=== PATIENT | male | born 1975 | race Native Hawaiian/Other Pacific Islander ===

== ENCOUNTER → 2020-01-05 09:18 | Outpatient (BNVA) | payer OTHER, SELFPAY | PROVIDERS: PCP Physician Assistant; Referring Provider Physician Assistant; Visit Provider Surgery | DX: Z09 Encounter for follow-up examination after completed treatment for conditions other than malignant neoplasm (principal); Z87.19 Personal history of other diseases of the digestive system; Z90.49 Acquired absence of other specified parts of digestive tract | CPT/HCPCS: 99024; 99212 ==

== ENCOUNTER → 2020-03-03 08:57 | Outpatient (BNVA) | payer OTHER, SELFPAY | PROVIDERS: Visit Provider Internal Medicine Gastroenterology | DX: Z76.89 Persons encountering health services in other specified circumstances (principal) ==

== ENCOUNTER 2020-09-06 16:15 | Outpatient (REF) | payer OTHER, SELFPAY | END 2020-09-06 16:16 | disposition home or self-care (01) | LOC: HO.LAB 16:15 | PROVIDERS: Visit Provider Nurse Practitioner Family | DX: R05 Cough (principal); Z20.822 Contact with and (suspected) exposure to COVID-19 | CPT/HCPCS: U0003; U0005 ==

== ENCOUNTER 2020-09-06 16:28 | Outpatient (REF) | payer OTHER, SELFPAY ==
--- NOTE | ~2020-09-06 | XR_ITS ---
EXAMINATION: CHEST 2 VIEWS CLINICAL INFORMATION: Cough . COMPARISON: 07/19/2018. TECHNIQUE: PA and lateral views of the chest obtained. FINDINGS: The lungs are well expanded. No focal infiltrate, effusion, edema, or pneumothorax. Cardiac and mediastinal silhouettes are within normal limits for technique. No acute bony abnormality seen XR/XR chest 2V IMPRESSION: No evidence of acute disease
== END 2020-09-06 16:29 | disposition home or self-care (01) ==
LOC: HO.HMGCX 16:28
PROVIDERS: Visit Provider Nurse Practitioner Family
DX: R05 Cough (principal)
CPT/HCPCS: 71046

== ENCOUNTER → 2022-08-13 12:33 | Outpatient (BNVA) | payer OTHER, SELFPAY | PROVIDERS: PCP Physician Assistant; Visit Provider Orthopaedic Surgery | DX: M65.331 Trigger finger, right middle finger (principal); R20.0 Anesthesia of skin; R20.2 Paresthesia of skin; Z48.89 Encounter for other specified surgical aftercare | CPT/HCPCS: 20550; 99202; J1100 ==

== ENCOUNTER 2022-10-10 | Outpatient (REF) | payer OTHER, SELFPAY | END 2022-10-10 00:01 | disposition home or self-care (01) | LOC: CF | PROVIDERS: Visit Provider Internal Medicine Pulmonary Disease | DX: R91.8 Other nonspecific abnormal finding of lung field (principal); J43.9 Emphysema, unspecified | CPT/HCPCS: 99202 ==

== ENCOUNTER 2022-10-10 14:42 | Outpatient (AMB) | payer OTHER, SELFPAY ==
--- NOTE | 2022-10-10 14:44 | MHC.OFFVIS ---
Intake Vital Signs 10/10/22 14:53 Height 5 ft 7 in Weight 197 lb 5.019 oz BMI 30.9 BP 118/76 Blood Pressure Location Rt brachial Position Sitting Pulse 91 Pulse Source Pulse Oximeter Pulse Oximetry (%) 96 Oxygen Delivery Method Room Air Intake Visit Reasons: Abnormal CT Chest Intake Note: New pt here for consult for a chest xray where they found pulm nodules. Possible PFT at [facility]. Recently started smoking cigarettes. Allergies fish oil Allergy (Unknown, Verified 10/10/22 14:58) Unknown diphenhydramine [From Benadryl] Allergy (Verified 10/10/22 14:58) Anaphylaxis SEAFOOD Allergy (Severe, Uncoded 10/10/22 14:58) HIVES,SWELLING THROAT HPI Abnormal CT Chest HPI Details 46-year-old gentleman active roughly 10 pack-year smoker with underlying history of pulmonary nodules on prior imaging [facility] approximately 3 years prior with no recent imaging referred for evaluation of his pulmonary concerns. Patient states that he does get elevated more out of breath when working out. He denies any recent exacerbations. He does complain of cough productive of intermittent yellowish sputum. Patient denies exposure to industrial dusts. He does have a dog as a pet and he also complains of multiple environmental allergies. [facility] Surgical History H/O knee surgery History of appendectomy History of colonoscopy History of hand surgery History of laparoscopic cholecystectomy (~11/2019) Hx of cholecystectomy Hx of endoscopy Family History Mother Hepatitis C Hypertension Diabetes Father Hepatitis C Hypertension Cancer Paternal Grandfather History of prostate cancer Hypertension Sister Diabetes Maternal Aunt Brain cancer Paternal Uncle History of prostate cancer Social History (Updated 10/10/22 @ 15:02 by Bailey Trujillo CMA) Housing: House Alcohol intake: never Patient Tobacco Use Status: Current everyday Tobacco user Tobacco use type: Cigarette Cigarettes Per Day: 6 Substance Use Type: Marijuana service: No Current occupational status: unemployed 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 Cognitive needs: No Hearing needs: No Vision needs: No Review of Systems Const Denies daytime sleepiness, Denies excessive sweating, Denies fatigue, Denies fever(s), Denies lethargy, Denies malaise, Denies night sweats, Denies snoring and Denies weight loss Eyes Denies blurry vision and Denies itchy eyes ENT Denies nasal congestion, Denies post nasal drip, Denies sinus pain, Denies sinus pressure and Denies other ( Thrush) Card Denies chest pain, Denies pedal edema, Denies dyspnea, Denies orthopnea and Denies paroxysmal nocturnal dyspnea Resp Reports cough, Denies hemoptysis, Reports excessive phlegm production, Denies dyspnea, Denies snoring and Denies wheezing GI Denies abdominal pain and Denies heartburn Musc Denies myalgias, Denies arthralgias and Denies joint swelling Skin/Breast Denies rash Neuro Denies memory loss and Denies seizure-like activity Psych Denies abnormal sleep pattern, Denies anxiety and Denies memory loss Endo Denies excessive sweating, Denies fatigue and Denies heat intolerance Andrae/Lymph Denies easy bruising Aller/Immun Denies itchy eyes, Denies seasonal rhinorrhea and Denies wheezing Physical Exam Vital Signs: Last Vital Signs Pulse 91 10/10/22 14:53 BP 118/76 10/10/22 14:53 Pulse Ox 96 10/10/22 14:53 Oxygen Delivery Method Room Air 10/10/22 14:53 BMI result Body Mass Index 30.9 Const General: no acute distress and alert Nutritional Appearance: not obese Orientation/consciousness: Other orientation findings ( oriented) HEENT Head: Yes atraumatic Eyes General: appearance normal, both eyes and all related structures Sclerae: sclerae normal EOM: EOMs intact bilaterally Neck Neck: Yes supple Lymphatic: no lymphadenopathy noted Resp Effort & Inspection: normal respiratory effort and no use of accessory muscles Auscultation: clear to auscultation bilaterally Cardio Rate: regular rate Rhythm: regular rhythm Heart sounds: no gallops, no murmurs and no rubs Skin General skin exam: other ( warm) Extrem General: No clubbing, No cyanosis and No edema Assessment & Plan Assessment & Plan (1) Pulmonary nodules: Code(s): R91.8 - Other nonspecific abnormal finding of lung field Plan: Patient states that he has history of multiple pulmonary nodules with prior CT scan from 2019 at [facility] that are not available at this time. Records requested will repeat CT chest for further assessment. (2) Emphysema lung: Code(s): J43.9 - Emphysema, unspecified Plan: Likely underlying COPD. Will obtain PFT for further assessment. Orders: Orders CT chest wo IV con Today R91.8 - Other nonspecific abnormal finding of lung field PFT pulmonary function test Today J43.9 - Emphysema, unspecified Coding Level of Care Code New Pt Level 4 (87968) Diagnoses Pulmonary nodules R91.8 Emphysema lung J43.9
[2022-10-10 14:53] VITALS: BP 118/76; PULSE 91; O2SAT 96; BMI 30.9
== END 2022-10-10 15:17 | disposition home or self-care (01) ==
PROVIDERS: PCP Physician Assistant; Visit Provider Internal Medicine Pulmonary Disease
DX: R91.8 Other nonspecific abnormal finding of lung field (principal); J43.9 Emphysema, unspecified
CPT/HCPCS: 99204

== ENCOUNTER 2022-10-17 10:51 | Outpatient (AMB) | payer OTHER, SELFPAY ==
--- NOTE | 2022-10-17 10:54 | A.OFFPC_ITS ---
Vital Signs 10/17/22 10:55 Height 5 ft 7 in Weight 194 lb 6 oz BMI 30.4 BP 104/70 Blood Pressure Location Lt brachial Position Sitting Pulse 75 Pulse Source Pulse Oximeter Pulse Oximetry (%) 95 Oxygen Delivery Method Room Air Intake Visit Reasons: 3M follow up Allergies fish oil Allergy (Unknown, Verified 10/17/22 11:22) Unknown diphenhydramine [From Benadryl] Allergy (Verified 10/17/22 11:22) Anaphylaxis SEAFOOD Allergy (Severe, Uncoded 10/17/22 10:57) HIVES,SWELLING THROAT Medication List - Last Reconciled 10/17/22 by Yonatan Good PA-C albuterol sulfate 90 mcg/actuation (Ventolin HFA) 2 puffs inhalation Q4-6H PRN famotidine 40 mg PO BEDTIME fexofenadine (Kim Allergy) 180 mg PO DAILY fluticasone propionate 50 mcg/actuation 2 sprays intranasal DAILY mirtazapine 15 mg PO BEDTIME Tobacco use date assessed: 07/18/22 HPI 3M follow up HPI Details Patient is a 46 year male here today for af /u visit . Patient's past history significant for vitamin-D deficiency, major depressive disorder GERD, inflammatory bowel disease, chronic rhinitis. Recently released from detention. He reports while in detention he had a right hand tendon infection requiring surgical intervention and IV antibiotics. ? Inflammatory bowel disease: Patient is followed by GI , reports his stools are now normal. Has not had any acute flare ups. Currently not on any disease modifying drug. He be following back up his GI specialist. .. COPD: Patient now followed by pulmonology and continues on Ventolin as needed. recently stopped smoking cig. He reports in the mornings having a somewhat productive cough. Was referred to pulmonary function testing and CT of chest, does have multiple pulmonary nodules PFSH Surgical History H/O knee surgery History of appendectomy History of colonoscopy History of hand surgery History of laparoscopic cholecystectomy (~11/2019) Hx of cholecystectomy Hx of endoscopy Family History Mother Hepatitis C Hypertension Diabetes Father Hepatitis C Hypertension Cancer Paternal Grandfather History of prostate cancer Hypertension Sister Diabetes Maternal Aunt Brain cancer Paternal Uncle History of prostate cancer Social History Housing: House Alcohol intake: never Patient Tobacco Use Status: Current everyday Tobacco user Tobacco use type: Cigarette Cigarettes Per Day: 6 Substance Use Type: Marijuana service: No Current occupational status: unemployed 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 1. Little interest or pleasure in doing things: not at all 2. Feeling down, depressed, or hopeless: not at all 3. Trouble falling or staying asleep, or sleeping too much: not at all 4. Feeling tired or having little energy: not at all 5. Poor appetite or overeating: not at all 6. Feeling bad about yourself - or that you are a failure or have let yourself or your family down: not at all 7. Trouble concentrating on things, such as reading the newspaper or watching television: not at all 8. Moving or speaking so slowly that other people could have noticed. Or the opposite - being so fidgety or restless that you have been moving around a lot more than usual: not at all 9. Thoughts that you would be better off or of hurting yourself in some way: not at all Total score: 0 Depression Screening Interpretation: Negative 87641 - PHQ-9 Billing: Yes Source: Developed by Drs. Lan Thurman, Janee Marquez, Beck Parkinson and colleagues, with an educational ole from [employer]. Thrive Questionnaire Date Thrive assessed: 07/18/22 I am a: Patient What is your living situation today?: I have a steady place to live Within the past 12 months, did the food you bought not last and you didn't have the money to get more?: Never true Within the past 12 months, did you worry whether your food would run out before you got money to buy more?: Never true Currently or been in a relationship where the following occur: no concerns reported AUDIT C Alcohol Use Questionnaire (AUDIT-C) 1. How often do you have a drink containing alcohol?: Never 3. How often do you have six or more drinks on one occasion?: Never Total Score: 0 Score Reviewed/Action Taken: No JAKI-7 AMB Questionnaire JAKI-7 Date JAKI - 7 assessed: 07/18/22 Feeling nervous, anxious, or on edge: 1 = Several days Not being able to stop or control worryin = Several days Worrying too much about different things: 0 = Not at all Trouble relaxin = Not at all Being so restless that it is hard to sit still: 0 = Not at all Becoming easily annoyed or irritable: 0 = Not at all Feeling afraid as if something awful might happen: 0 = Not at all Total JAKI-7 score (0-4 normal; 5-9 mild; 10-14 moderate; 15-21 severe): 2 Source: Developed by Drs. Lan Thurman, Janee Marquez, Beck Parkinson and colleagues, with an educational ole from [employer]. JAKI-7 Assessment Billing JAKI-7 Assessment Tool: JAKI-7 Assessment 32576 Review of Systems Const Denies headache(s) Eyes Denies loss of vision ENT Denies vertigo, Denies dizziness, Denies headache(s) and Denies sore throat Card Denies chest pain, Denies leg edema and Denies lightheadedness Resp Denies cough, Denies hemoptysis and Denies wheezing GI Denies abdominal pain, Denies melena, Denies constipation, Denies diarrhea and Denies vomiting Denies dysuria, Denies urinary frequency and Denies urinary urgency Musc Denies arthralgias, Denies joint swelling, Denies numbness and Denies tingling Neuro Denies Abnormal speech present, Denies behavioral changes, Denies vertigo, Denies dizziness, Denies headache(s), Denies loss of vision, Denies memory loss, Denies numbness and Denies tingling Psych Denies anxiety, Denies behavioral changes, Denies depression, Denies memory loss and Denies panic attacks Andrae/Lymph Denies easy bleeding and Denies easy bruising Aller/Immun Denies wheezing Physical exam (Primary Care) Vital Signs: Last Vital Signs Pulse 75 10/17/22 10:55 BP 104/70 10/17/22 10:55 Pulse Ox 95 10/17/22 10:55 Oxygen Delivery Method Room Air 10/17/22 10:55 BMI result Body Mass Index 30.4 Tobacco/Smoking Status: Tobacco use Status Tobacco use date assessed 07/18/22 10/17/22 10:58 Patient Tobacco Use Status Current everyday Tobacco 10/17/22 10:58 Tobacco use type Cigarette 10/17/22 10:58 PHQ-9: PHQ-9 Score PHQ-9: Total score 0 10/17/22 15:56 Depression Screening Interpretation: Negative Thrive Assessment: Date of Thrive Assessment Date Thrive assessed 07/18/22 10/17/22 10:58 Currently or been in a relationship where the following occur: no concerns reported Const General: healthy appearing, no acute distress, alert and awake Nutritional Appearance: well nourished Orientation/consciousness: oriented to person, oriented to place and oriented to time HENMT Ears: TM's normal bilaterally General nose exam: Normal nasal mucous membranes and turbinates present Eyes Conjunctivae: conjunctivae normal Sclerae: sclerae normal Pupils: Equal, round and reactive pupils present Neck Neck: Yes no lymphadenopathy and Yes no JVD Thyroid: Thyroid normal Carotids: no bruits Resp Effort & Inspection: normal respiratory effort and not tachypneic Auscultation: no crackles, no rales, no rhonchi and no wheezes Cardio Rate: regular rate Rhythm: regular rhythm Heart sounds: no murmurs and normal S1 and S2 GI Palpation (GI): Soft to palpation, nontender, no hepatomegaly and no splenomegaly Auscultation: normal bowel sounds Skin General skin exam: no rashes or lesions noted and dry skin Neuro General: oriented to person, oriented to place and oriented to time Cranial nerves: Yes Equal, round and reactive pupils present Speech: No Abnormal speech present Gait exam (Neuro): Normal gait present Motor exam (neuro): no tremor noted Extrem Right upper extremity: full ROM Left upper extremity: full ROM Right lower extremity: full ROM; no edema Left lower extremity: full ROM; no edema Psych Mental Status: mental status grossly normal Speech and movement: Normal speech and movement present Affect: normal affect Attitude: cooperative Thought process: Normal thought process present Assessment and Plan Assessment & Plan (1) Emphysema lung: Code(s): J43.9 - Emphysema, unspecified Qualifiers: Emphysema type: centrilobular Qualified Code(s): J43.2 - Centrilobular emphysema Plan: Followed by pulmonology, will continue his Ventolin as needed for cough. Will send in a few days of prednisone due to productive cough and wheeze as of late. (2) Crohn's disease: Code(s): K50.90 - Crohn's disease, unspecified, without complications Qualifiers: Digestive disease complication type: unspecified complication Gastrointestinal tract location: large intestine Qualified Code(s): K50.119 - Crohn's disease of large intestine with unspecified complications Plan: Will be following up with gastroenterology. Currently he reports he is asymptomatic without any loose stool or abdominal pains. Not on disease modifying drug at this time. (3) Hypercholesteremia: Code(s): E78.00 - Pure hypercholesterolemia, unspecified Plan: Patient has history of hyperlipidemia, has been working on lifestyle modifications on reducing high cholesterol foods in his diet. Will recheck his lipid panel to ensure stable total cholesterol and LDL. (4) PTSD (post-traumatic stress disorder): Code(s): F43.10 - Post-traumatic stress disorder, unspecified Plan: Patient does suffer PTSD to which she uses marijuana of to reduce his anxiety. (5) MDD (major depressive disorder), recurrent episode, moderate: Code(s): F33.1 - Major depressive disorder, recurrent, moderate Plan: Patient reports his depression has been fairly well controlled with the use of marijuana. Will hold off on taking mirtazapine at this time as he does not want to mix prescription meds and marijuana. (6) Obese: Code(s): E66.9 - Obesity, unspecified Qualifiers: Obesity type: due to excess calories Obesity classification: adult class 1 (BMI 30 - 34.9) Serious obesity comorbidity presence: without serious comorbidity Body mass index: BMI 30.0-30.9 Qualified Code(s): E66.09 - Other obesity due to excess calories; Z68.30 - Body mass index [BMI] 30.0-30.9, adult Plan: Patient does understand his BMI is over 30 will work on being more physically active and adapt to better eating habits to reduce his weight Medications: New prednisone 20 mg PO DAILY 7 days 7 tabs 0RF J43.2 - Centrilobular emphysema Changed From fexofenadine (Kim Allergy) 180 mg PO DAILY 90 tabs 0RF J30.89 - Other allergic rhinitis, R05 - Cough To fexofenadine (Kim Allergy) 180 mg PO DAILY 90 days 90 tabs 1RF J30.89 - Other allergic rhinitis, R05 - Cough From famotidine 40 mg PO BEDTIME 30 tabs 3RF To famotidine 40 mg PO BEDTIME 90 days 90 tabs 1RF From albuterol sulfate 90 mcg/actuation (Ventolin HFA) 2 puffs inhalation Q4-6H PRN 8.5 grams 0RF shortness of breath or wheezing R06.2 - Wheezing To albuterol sulfate 90 mcg/actuation (Ventolin HFA) 2 puffs inhalation Q4-6H 30 days PRN 8.5 grams 3RF shortness of breath or wheezing R06.2 - Wheezing Refilled fluticasone propionate 50 mcg/actuation administer into each nostril 2 sprays intranasal DAILY 16 grams 1RF J30.89 - Other allergic rhinitis Discontinued mirtazapine Discontinued Reason: Doctor's Order 15 mg PO BEDTIME 30 tabs 3RF Coding Level of Care Code Est Pt Level 4 (97248) Diagnoses Emphysema lung J43.2 Emphysema type: centrilobular Crohn's disease K50.119 Digestive disease complication type: unspecified complication Gastrointestinal tract location: large intestine Hypercholesteremia E78.00 PTSD (post-traumatic stress disorder) F43.10 MDD (major depressive disorder), recurrent episode, moderate F33.1 Obese E66.09; Z68.30 Obesity type: due to excess calories Obesity classification: adult class 1 (BMI 30 - 34.9) Serious obesity comorbidity presence: without serious comorbidity Body mass index: BMI 30.0-30.9 Additional Codes JAKI-7 Assessment Billing - JAKI-7 Assessment Tool: JAKI-7 Assessment 02162 ([id number])
[2022-10-17 10:55] VITALS: BP 104/70; PULSE 75; O2SAT 95; BMI 30.4
== END 2022-10-17 11:44 | disposition home or self-care (01) ==
PROVIDERS: Visit Provider Physician Assistant
DX: J43.2 Centrilobular emphysema (principal); K50.119 Crohn's disease of large intestine with unspecified complications; E66.09 Other obesity due to excess calories; Z68.30 Body mass index [BMI] 30.0-30.9, adult; F43.10 Post-traumatic stress disorder, unspecified; F33.1 Major depressive disorder, recurrent, moderate; E78.00 Pure hypercholesterolemia, unspecified
CPT/HCPCS: 99214

== ENCOUNTER 2022-12-17 14:12 | Outpatient (REF) | payer OTHER, SELFPAY ==
--- NOTE | ~2022-12-17 | CT_ITS ---
EXAMINATION: CT CHEST WITHOUT CONTRAST CLINICAL INFORMATION: Abnormal findings lung field COMPARISON: 12/20/2019 and 07/21/2018 abdomen CTs. TECHNIQUE: Multidetector volumetric CT imaging of the chest was done. Axial MIP volume rendering provided. Sagittal and coronal reformatted images were obtained. This CT examination was performed using dose optimization techniques as appropriate, variously including the following: *Automated exposure control *Adjustment of mA and/or kV according to patient size (this includes techniques or standardized protocols for targeted exams where dose is matched to indication/reason for exam; i.e. extremities or head) *Use of iterative reconstruction technique DLP: 2: mGy-cm FINDINGS: COMPUTERIZED TABLE CUTTER: Clear lungs. Postcholecystectomy. LUNGS: Trachea and bronchi are patent. No consolidations or groundglass opacities. 7 mm right lower lobe pulmonary nodule, 4:39, unchanged from 07/21/[address] MEDIASTINUM: Unremarkable thyroid. No pathologic lymphadenopathy. Nonenlarged heart. No pericardial effusion. Nonaneurysmal aorta. Nonenlarged pulmonary arteries. CORONARY ARTERY CALCIFICATION: None visualized on this study. PLEURA: There is no pleural effusion. No pleural mass or thickening. AXILLA: No lymphadenopathy. UPPER ABDOMEN: Status post cholecystectomy. OSSEOUS STRUCTURES: Unremarkable. CT/CT chest wo IV con IMPRESSION: 7 mm right lower lobe pulmonary nodule, stable from 2019 and therefore considered benign. Fleischner guidelines were followed.
== END 2022-12-17 14:13 | disposition home or self-care (01) ==
LOC: HO.RESP 14:12
PROVIDERS: PCP Physician Assistant; Visit Provider Internal Medicine Pulmonary Disease
DX: R91.8 Other nonspecific abnormal finding of lung field (principal); J43.9 Emphysema, unspecified
CPT/HCPCS: 71250

== ENCOUNTER 2023-02-18 11:13 | Outpatient (AMB) | payer OTHER, SELFPAY ==
[2023-02-18 11:20] VITALS: BP 120/90; PULSE 83; O2SAT 99
--- NOTE | 2023-02-18 11:20 | MHC.PC.OV ---
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: No Accompanied by: Self / Same As Patient Allergies fish oil Allergy (Unknown, Verified 02/18/23 11:55) Unknown diphenhydramine [From Benadryl] Allergy (Verified 02/18/23 11:55) Anaphylaxis SEAFOOD Allergy (Severe, Uncoded 10/17/22 10:57) HIVES,SWELLING THROAT Medication List - Last Reconciled 02/18/23 by Yonatan Good PA-C albuterol sulfate 90 mcg/actuation (Ventolin HFA) 2 puffs inhalation Q4-6H PRN 30 days famotidine 40 mg PO BEDTIME 90 days fexofenadine (Kim Allergy) 180 mg PO DAILY 90 days fluticasone propionate 50 mcg/actuation 2 sprays intranasal DAILY Tobacco use date assessed: 07/18/22 Dental Screening Dental Screen Date: 02/18/23 Did you have a dental visit in the last 12 months?: Yes Did you have a dental problem in the last 6 months where you did not have access to dental care?: No Was dental information given to patient?: Patient has dentist HPI 4 month f/u HPI Details Patient is a 47 year male here today for a f /u visit . Patient's past history significant for vitamin-D deficiency, major depressive disorder GERD, inflammatory bowel disease, chronic rhinitis. ? Inflammatory bowel disease: Patient is followed by GI , reports his stools are now normal. Has not had any acute flare ups. Currently not on any disease modifying drug. He be following back up his GI specialist. .. COPD: Patient now followed by pulmonology and continues on Ventolin as needed. He reports he generally has stop smoking, still has his cigarette from time to time. He reports in the mornings having a somewhat productive cough. Now seeing pulmonology note was sent for chest CT which did show a 7 mm right pulmonary nodule that is stable from previous imaging in 2019 consider benign. He otherwise reports his pulmonary status is stable. .. Anxiety: He reports his anxiety and stress has been elevated as of late due to his 's battling leukemia cancer. He is taking care of his son alone. He is somewhat depressed at as well. He is interested in as-needed medication for his anxiety to help him come down. [facility] Surgical History Hx of endoscopy History of colonoscopy Hx of cholecystectomy H/O knee surgery History of appendectomy History of hand surgery History of laparoscopic cholecystectomy (~11/2019) Family History Mother Hepatitis C Hypertension Diabetes Father Hepatitis C Hypertension Cancer Paternal Grandfather History of prostate cancer Hypertension Sister Diabetes Maternal Aunt Brain cancer Paternal Uncle History of prostate cancer (Updated 02/18/23 @ 12:00 by Yonatan Good PA-C) Housing: House Alcohol intake: never Patient Tobacco Use Status: Former Tobacco user Quit Date: 2019 Tobacco use type: Cigarette Cigarettes Per Day: 6 e-Cigarette/Vaping Use: Never Used Substance Use Type: Marijuana service: No Current occupational status: unemployed 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 Lan Thurman, Janee Marquez, Beck Parkinson and colleagues, with an educational ole from [employer]. Review of Systems Const Denies headache(s) Eyes Denies loss of vision ENT Denies vertigo, Denies dizziness, Denies headache(s) and Denies sore throat Card Denies chest pain, Denies leg edema and Denies lightheadedness Resp Denies cough, Denies hemoptysis and Denies wheezing GI Denies abdominal pain, Denies melena, Denies constipation, Denies diarrhea and Denies vomiting Denies dysuria, Denies urinary frequency and Denies urinary urgency Musc Denies arthralgias, Denies joint swelling, Denies numbness and Denies tingling Neuro Denies Abnormal speech present, Denies behavioral changes, Denies vertigo, Denies dizziness, Denies headache(s), Denies loss of vision, Denies memory loss, Denies numbness and Denies tingling Psych Denies anxiety, Denies behavioral changes, Denies depression, Denies memory loss and Denies panic attacks Andrae/Lymph Denies easy bleeding and Denies easy bruising Aller/Immun Denies wheezing Physical exam (Primary Care) Vital Signs: Last Vital Signs Pulse 83 02/18/23 11:20 BP 120/90 H 02/18/23 11:20 Pulse Ox 99 02/18/23 11:20 Oxygen Delivery Method Room Air 02/18/23 11:20 BMI result Body Mass Index 30.0 Tobacco/Smoking Status: Tobacco use Status Tobacco use date assessed 07/18/22 02/18/23 11:27 Patient Tobacco Use Status Former Tobacco user 02/18/23 12:00 Tobacco use type Cigarette 02/18/23 12:00 e-Cigarette/Vaping Use Never Used 02/18/23 12:00 Thrive Assessment: Date of Thrive Assessment Date Thrive assessed 07/18/22 02/18/23 11:27 Const General: healthy appearing, no acute distress, alert and awake Nutritional Appearance: well nourished Orientation/consciousness: oriented to person, oriented to place and oriented to time HENMT Ears: TM's normal bilaterally General nose exam: Normal nasal mucous membranes and turbinates present Eyes Conjunctivae: conjunctivae normal Sclerae: sclerae normal Pupils: Equal, round and reactive pupils present Neck Neck: Yes no lymphadenopathy and Yes no JVD Thyroid: Thyroid normal Carotids: no bruits Resp Effort & Inspection: normal respiratory effort and not tachypneic Auscultation: no crackles, no rales, no rhonchi and no wheezes Cardio Rate: regular rate Rhythm: regular rhythm Heart sounds: no murmurs and normal S1 and S2 GI Palpation (GI): Soft to palpation, nontender, no hepatomegaly and no splenomegaly Auscultation: normal bowel sounds Skin General skin exam: no rashes or lesions noted and dry skin Neuro General: oriented to person, oriented to place and oriented to time Cranial nerves: Yes Equal, round and reactive pupils present Speech: No Abnormal speech present Gait exam (Neuro): Normal gait present Motor exam (neuro): no tremor noted Extrem Right upper extremity: full ROM Left upper extremity: full ROM Right lower extremity: full ROM; no edema Left lower extremity: full ROM; no edema Psych Mental Status: mental status grossly normal Speech and movement: Normal speech and movement present Affect: normal affect Attitude: cooperative Thought process: Normal thought process present Assessment and Plan Assessment & Plan (1) Emphysema lung: Code(s): J43.9 - Emphysema, unspecified Qualifiers: Emphysema type: centrilobular Qualified Code(s): J43.2 - Centrilobular emphysema Plan: Followed by pulmonology, will continue his Ventolin as needed for cough. Most recent CT of chest showing a stable right 7 mm pulmonary nodule which is considered benign. (2) Crohn's disease: Code(s): K50.90 - Crohn's disease, unspecified, without complications Qualifiers: Digestive disease complication type: unspecified complication Gastrointestinal tract location: large intestine Qualified Code(s): K50.119 - Crohn's disease of large intestine with unspecified complications Plan: Will be following up with gastroenterology. Currently he reports he is asymptomatic without any loose stool or abdominal pains. Not on disease modifying drug at this time. (3) Hypercholesteremia: Code(s): E78.00 - Pure hypercholesterolemia, unspecified Plan: Patient has history of hyperlipidemia, has been working on lifestyle modifications on reducing high cholesterol foods in his diet. Will recheck his lipid panel to ensure stable total cholesterol and LDL. (4) PTSD (post-traumatic stress disorder): Code(s): F43.10 - Post-traumatic stress disorder, unspecified Plan: Patient does suffer PTSD to which she uses marijuana of to reduce his anxiety. He is interested in a prescribed medication to take as needed for his anxious symptoms. (5) MDD (major depressive disorder), recurrent episode, moderate: Code(s): F33.1 - Major depressive disorder, recurrent, moderate Plan: Patient reports his depression has been fairly well controlled with the use of marijuana. He has a little more depressed as of late due to his 's health battling with cancer. He has tried many different SSRIs in the past and reports suicide attempts. Will try clonidine on a p.r.n. basis for anxious symptoms. Orders: Orders Comprehensive Klemme. Panel Fast 02/18/23 Z13.1 - Encounter for screening for diabetes mellitus Lipid Panel 02/18/23 E78.00 - Pure hypercholesterolemia, unspecified Microalbumin, Random (w Creat) 02/18/23 I10 - Essential (primary) hypertension Complete Blood Count no Diff 02/18/23 I10 - Essential (primary) hypertension Medications: New clonidine HCl 0.1 mg PO BID 30 days PRN 60 tabs 0RF panic attack(s) F41.1 - Generalized anxiety disorder Refilled albuterol sulfate 90 mcg/actuation (Ventolin HFA) 2 puffs inhalation Q4-6H 30 days PRN 8.5 grams 3RF shortness of breath or wheezing R06.2 - Wheezing Coding Level of Care Code Est Pt Level 4 (11532) Diagnoses Centrilobular emphysema J43.2 Emphysema type: centrilobular Crohn's disease of large intestine with complication K50.119 Digestive disease complication type: unspecified complication Gastrointestinal tract location: large intestine Hypercholesteremia E78.00 PTSD (post-traumatic stress disorder) F43.10 MDD (major depressive disorder), recurrent episode, moderate F33.1
== END 2023-02-18 12:13 | disposition home or self-care (01) ==
PROVIDERS: PCP Physician Assistant; Visit Provider Physician Assistant
DX: J43.2 Centrilobular emphysema (principal); K50.119 Crohn's disease of large intestine with unspecified complications; F33.1 Major depressive disorder, recurrent, moderate; E78.00 Pure hypercholesterolemia, unspecified; F43.10 Post-traumatic stress disorder, unspecified
CPT/HCPCS: 99214

== ENCOUNTER 2023-09-23 11:55 | Emergency (ER) | payer OTHER, SELFPAY ==
--- NOTE | ~2023-09-23 | XR_ITS ---
EXAMINATION: XR CHEST CLINICAL INFORMATION: Chest pain COMPARISON: Chest radiograph from 09/06/2020 TECHNIQUE: Frontal view of the chest was obtained. FINDINGS: Slight elevation right hemidiaphragm. No pneumothorax. Trachea is midline. Cardiac mediastinal silhouette is not enlarged. No large pleural effusion. Osseous structures are intact. Soft tissues are unremarkable. XR/XR chest 1V IMPRESSION: Slight elevation right hemidiaphragm.
--- NOTE | 2023-09-23 11:58 | ECG_ITS ---
Test Reason : CHEST PAIN Blood Pressure : / mmHG Vent. Rate : 067 BPM Atrial Rate : 067 BPM P-R Int : 134 ms QRS Dur : 096 ms QT Int : 380 ms P-R-T Axes : 044 066 029 degrees QTc Int : 401 ms Normal sinus rhythm Normal ECG When compared with ECG of 19-JUL-2018 10:00, Previous ECG has undetermined rhythm, needs review Referred By: Generic ED Physician Electronically Signed By:RAMIRO AUSTIN MD
--- NOTE | 2023-09-23 11:58 | ED.GENADULT ---
HPI - General Adult General Chief complaint: Chest Pain Stated complaint: chest pain Time Seen by Provider: 09/23/23 12:17 Source: patient and RN notes reviewed Mode of arrival: ambulatory Limitations: no limitations History of Present Illness ED Provider: Scarlet Colón PA-C HPI narrative: This is a 47-year-old male, with a history of anxiety, depression, hypertension, and Crohn's disease, who presents emergency department with complaints of chest pain x3 days. Patient states that the pain has been constant. Patient states that while he was in the shower this morning, he felt the pain worsened. He states that the pain is pressure-like and radiates down his left arm. He also endorses some numbness throughout his entire face. He states that he has been under a significant amount of stress, recently lost his 2 months ago and has been fighting over custody as well as changing housing. He denies any fevers, chills, shortness breath, palpitations, abdominal pain, nausea, vomiting or diarrhea. 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 He states that the testing has increased in size. No other complaints or concerns at this time. MD complaint: Chest pain Onset (ago): day(s) Quality: aching Pain Consistency: constant Relieving factors: none Exacerbating factors: none Associated symptoms: chest pain and diaphoresis Treatments prior to arrival: none Related Data Previous Rx's ?Medication ?Instructions ?Recorded famotidine 40 mg tablet 40 mg PO BEDTIME 90 days #90 tabs 10/17/22 fexofenadine 180 mg tablet 180 mg PO DAILY 90 days #90 tabs 10/17/22 (Kim Allergy) fluticasone propionate 50 2 spray intranasal DAILY #16 grams 10/17/22 mcg/actuation nasal spray,suspension albuterol sulfate 90 mcg/actuation 2 puff inhalation Q4-6H PRN 02/18/23 aerosol inhaler (Ventolin HFA) shortness of breath or wheezing 30 days #8.5 grams clonidine HCl 0.1 mg tablet 0.1 mg PO BID PRN panic attack(s) 03/27/23 30 days #60 tabs Allergies Allergy/AdvReac Type Severity Reaction Status Date / Time fish oil Allergy Unknown Unknown Verified 09/23/23 12:01 diphenhydramine Allergy Anaphylaxis Verified 09/23/23 12:01 [From Benadryl] SEAFOOD Allergy Severe HIVES,SWELLING Uncoded 10/17/22 10:57 THROAT Review of Systems Review of Systems: Yes all other systems are reviewed and are negative Constitutional: Constitutional: Reports as per HPI COUNTS INCLUDE 234 BEDS AT THE [facility] Past Medical History Surgical History Hx of endoscopy History of colonoscopy Hx of cholecystectomy H/O knee surgery History of appendectomy History of hand surgery History of laparoscopic cholecystectomy (~11/2019) Family History Family History Mother Hepatitis C Hypertension Diabetes Father Hepatitis C Hypertension Cancer Paternal Grandfather History of prostate cancer Hypertension Sister Diabetes Maternal Aunt Brain cancer Paternal Uncle History of prostate cancer Social History Social History (Updated 02/18/23 @ 12:00 by Yonatan Good PA-C) Housing: House Alcohol intake: never Patient Tobacco Use Status: Former Tobacco user Tobacco use type: Cigarette Cigarettes Per Day: 6 Smoked in Last 30 Days: Yes e-Cigarette/Vaping Use: Never Used Use of substances other than those prescribed or required for medical reasons: Yes Substance Use Type: Marijuana Substance Use Frequency: Weekly Substance Use Frequency Other:: every other day Advance Directives: No Advance Directives Information Provided: Yes Do you have a plan to hurt others: No Plan service: No Current occupational status: unemployed 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 Cognitive needs: No Hearing needs: No Vision needs: No Physical Exam ED Vital Signs: Vital Signs - 24 hr 09/23/23 12:00 09/23/23 14:18 09/23/23 16:00 Temperature 98.2 F Pulse Rate 87 66 68 Respiratory Rate 24 H 25 H 16 Blood Pressure 152/81 H 96/64 118/80 Pulse Oximetry 99 95 97 Oxygen Delivery Method Room Air Room Air Room Air 09/23/23 16:17 Temperature 98.2 F Pulse Rate 68 Respiratory Rate 16 Blood Pressure 118/80 Pulse Oximetry 97 Oxygen Delivery Method Room Air BMI result Body Mass Index 30.4 Const General: cooperative, comfortable and no acute distress Orientation/consciousness: patient oriented x3 Limitations: no limitations HENMT Head: Yes normal to inspection, Yes normocephalic and Yes atraumatic Ears: hearing grossly normal bilaterally General nose exam: Normal external nose present Face and sinus: Yes normal facial exam Mouth: Normal oral and palatal mucosa present, oropharynx normal and moist mucous membranes Throat: Yes posterior oropharynx normal Eyes General: appearance normal, both eyes and all related structures Eyelids: Yes eyelids normal Conjunctivae: conjunctivae normal Sclerae: sclerae normal Pupils: Equal, round and reactive pupils present EOM: EOMs intact bilaterally Neck Neck: Yes normal visual inspection, Yes full ROM and Yes no lymphadenopathy Lymphatic: no lymphadenopathy noted Chest Other: Tenderness palpation along the anterior chest wall Chest palpation & inspection: normal inspection of the chest Resp Effort & Inspection: normal respiratory effort and able to speak in complete sentences Auscultation: clear to auscultation bilaterally, no crackles, no rales, no rhonchi and no wheezes Cardio Rate: regular rate Rhythm: regular rhythm Heart sounds: S1 normal heart sound present and S2 normal heart sound present GI Inspection: Yes normal to inspection Skin General skin exam: no rashes or lesions noted Trauma: no lacerations or abrasions Wounds: no wounds Neuro General: patient oriented x3 and moves all extremities Cranial nerves: Yes Equal, round and reactive pupils present Extrem General: Yes normal to inspection Right upper extremity: normal to inspection Left upper extremity: normal to inspection Right lower extremity: normal to inspection Left lower extremity: normal to inspection NIH Stroke Scale Internal: Initial- Upon Arrival Level of Consciousness: Alert Level of Consciousness Questions: Answers both questions correctly Level of Consciousness Commands: Performs both tasks correctly Best Gaze: Normal Visual: No visual loss Facial Palsy: Normal Motor Arm (Right): No drift Motor Arm (Left): No drift Motor Leg (Right): No drift Motor Leg (Left): No drift Limb Ataxia: Absent Sensory: Normal Best Language: No aphasia Dysarthia: Normal Extinction and Inattention: No abnormality Score: 0 Course Course Course Narrative: This is a rapid medical exam performed by Danis Salgado NP: Additional HPI, ROS, PE not included below will be deferred to primary provider. Patient is a 47-year-old male presenting to the ED with complaint of chest pain and vomiting, describes emesis as foamy and yellow. Reports using medical marijuana from dispensary last night, denies other drug use. Plan: EKG, labs, CXR Reevaluation(s) Reevaluation #1: Second troponin returns, negative. Chest x-ray unremarkable. Workup today reassuring. Patient has a heart score of 2. Symptoms likely due to anxiety given patient has been in an overwhelming environment, with a loss of his , properties, and ongoing [place] for custody of his 2-year-old child. I discussed at length the possibilities of meeting with the care team. He does not have any suicidal or homicidal ideations. No auditory or visual hallucinations. He currently has a counselor who is aware of the situation and has been relying on family and friends for support. He declines needing any additional resources at this time. I discussed strict return precautions. He understands and agrees with plan. Patient stable for discharge. Time: 15:46 Medications Administered Discontinued Medications Generic Name Dose Route Start Last Admin Trade Name Freq PRN Reason Stop Dose Admin Lorazepam 1 mg 09/23/23 12:46 09/23/23 13:15 Lorazepam 2 Mg/Ml Vial IVPUSH 09/23/23 12:47 1 mg ONCE ONE Administration Morphine Sulfate 4 mg 09/23/23 12:46 09/23/23 13:16 Morphine Sulfate 4 Mg/Ml Cartridge IVPUSH 09/23/23 12:47 4 mg ONCE ONE Administration Protocol Medical Decision Making Medical Decision Making [facility] Narrative: This is a 47-year-old male who presents emergency department with complaints of chest pain x3 days. On arrival, vital signs revealing slight hypertension at 152/81, respirations 24, he has diaphoretic, appears to be very anxious. Differential diagnoses include ACS, pneumothorax, anxiety, E-unlikely. Patient has had no recent travel surgeries, hospitalizations. Denies pleuritic chest pain, shortness for breath to suggest PE. He is normal risk factors. Differential Diagnosis Differential Diagnoses: The differential diagnosis associated with the presentation includes See above Admission/Observation Consideration of admission/observation: Escalation of care including admission/observation considered Escalation of care including admission/observation considered however given workup today not warranted at this time. Lab Data [facility] Lab Attestation statement: I reviewed the patient's lab results. No leukocytosis, stable H&H, chemistry within normal limits. He does have slight hyperglycemia at 149, troponin x2 negative 09/23/23 12:11 09/23/23 12:11 Labs: Lab Results 09/23/23 09/23/23 Range/Units 12:11 15:05 WBC 11.2 H (4.8-10.8) X10*3/uL RBC 5.16 (4.60-5.80) X10*6/uL Hgb 16.4 (14.0-18.0) g/dl Hct 46.0 (42.0-52.0) % MCV 89.1 (80.0-98.0) fL MCH 31.8 (27.0-33.0) pg MCHC 35.7 (31.0-36.0) g/dl RDW 12.3 (11.0-16.0) % Plt Count 305 (160-400) X10*3/uL MPV 10.2 (9.4-12.4) fL Immature Gran % (Auto) 0.4 (0.0-0.4) % Neut % (Auto) 74.8 H (45-73) % Lymph % (Auto) 18.4 L (20-40) % [place] % (Auto) 5.7 (2-11) % Eos % (Auto) 0.5 (0-4) % Baso % (Auto) 0.2 (0-2) % Lymph # (Auto) 2.1 (1.2-4.9) X10*3/uL [place] # (Auto) 0.6 (0.1-1.2) X10*3/uL Eos # (Auto) 0.1 (0.0-0.4) X10*3/uL Baso # (Auto) 0.0 (0.0-0.2) X10*3/uL Abs Immat Gran (auto) 0.05 H (0.00-0.03) X10*3/uL Absolute Neuts (auto) 8.3 (2.0-8.3) x10*3/uL Absolute Nucleated RBC 0.000 (0.0-0.012) X10*3/uL Nucleated RBC % (auto) 0.0 (0.0-0.2) /100WBC PT 11.1 (11.1-13.3) SEC INR 0.9 (0.9-1.1) Sodium 139 (135-145) mmol/L Potassium 3.9 (3.3-5.1) mmol/L Chloride 105 (96-108) mmol/L Carbon Dioxide 22 (22-29) mmol/L Anion Gap 16 (12-20) BUN 8 L (9-16) mg/dL Creatinine 0.85 (0.5-1.4) mg/dL Estim Creat Clear Calc 120.0 Estimated GFR > 60 Random Glucose 149 H (60-115) mg/dL Calcium 9.5 (8.4-10.2) mg/dL Magnesium 1.8 (1.6-2.6) mg/dL Total Bilirubin 0.6 (0.0-1.0) mg/dL AST 19 (5-37) U/L ALT 18 (0-40) U/L Alkaline Phosphatase 64 (39-117) U/L Troponin I High Sens < 2.7 < 2.7 (<3.5-35.0) ng/L Total Protein 7.1 (6.5-8.0) g/dL Albumin 4.2 (3.5-5.0) g/dL Influenza Type A (PCR) NEGATIVE (Negative) Influenza Type B (PCR) NEGATIVE (Negative) RSV RNA Qual (PCR) NEGATIVE (Negative) SARS-CoV-2 RNA (RT-PCR) NEGATIVE (Negative) Independent Interpretation I performed an independent interpretation of an: EKG Interpretation: EKG normal sinus rhythm at a ventricular rate of 67 beats per minute, SC interval 134, QT QTC 380/401, no ST elevation or depression Radiology Impression Discussion of test interpretation with radiology: I have reviewed the radiologist's reading. Radiologist Impression: XR/XR chest 1V IMPRESSION: Slight elevation right hemidiaphragm. Dictated By: Kandis Basilio MD Signed By: <Electronically signed Scores Heart Score History: -0- slightly suspicious ECG: -0- normal Age: -1- >45 - <65 Risk factory: -1- 1 or 2 risk factors Troponin: -0- < or = normal limit Score: 2 Risk: 1.7% Discharge Plan Discharge Clinical Impression: Chest pain Qualifiers: Chest pain type: unspecified Qualified Code(s): R07.9 - Chest pain, unspecified Patient Disposition: Home, Self-Care Instructions: Chest Pain (ED) Additional Instructions: You were seen in the emergency department due to chest pain. Your workup today was reassuring. Please follow-up with your primary care physician regarding this visit. Get plenty of rest, drink plenty of fluids. Avoid strenuous activities over the next several days until your symptoms have fully resolved. If any new or worsening symptoms occur including but not limited to worsening chest pain, shortness of breath, dizziness, nausea, vomiting, please return for re-evaluation. Prescriptions: No Action clonidine HCl 0.1 mg tablet 0.1 mg PO BID PRN (Reason: panic attack(s)) 30 Days Qty: 60 3RF fluticasone propionate 50 mcg/actuation spray,suspension 2 spray intranasal DAILY Qty: 16 1RF Rx Instructions: administer into each nostril fexofenadine [Kim Allergy] 180 mg tablet 180 mg PO DAILY 90 Days Qty: 90 1RF famotidine 40 mg tablet 40 mg PO BEDTIME 90 Days Qty: 90 1RF albuterol sulfate [Ventolin HFA] 90 mcg/actuation HFA aerosol inhaler 2 puff inhalation Q4-6H PRN (Reason: shortness of breath or wheezing) 30 Days Qty: 8.5 3RF Interventions: ED Discharge Assessment Last Done: 09/23/23 16:17 Discharge Date/Time: 09/23/23 16:18 Print Language: Estonian
[2023-09-23 12:00] VITALS: BP 152/81; PULSE 87; RESP 24; O2SAT 99; BMI 30.4
[2023-09-23 12:18] LABS: MANUAL DIFF FLAG NO
[2023-09-23 12:20] LABS: Basophils Percent Auto 0.2 % (0-2); Eosinophils Absolute Auto 0.1 X10*3/uL (0.0-0.4); Eosinophils Percent Auto 0.5 % (0-4); Hemoglobin 16.4 g/dl (14.0-18.0); Imm Gran Abs Auto 0.05 X10*3/uL (0.00-0.03); Imm Gran Pct Auto 0.4 % (0.0-0.4); Lymphocytes Absolute Auto 2.1 X10*3/uL (1.2-4.9); Lymphocytes Percent Auto 18.4 % (20-40); Mean Corpuscular HGB Conc 35.7 g/dl (31.0-36.0); Mean Corpuscular Hemoglobin 31.8 pg (27.0-33.0); Mean Corpuscular Volume 89.1 fL (80.0-98.0); Mean Platelet Volume 10.2 fL (9.4-12.4); Monocytes Absolute Auto 0.6 X10*3/uL (0.1-1.2); Monocytes Percent Auto 5.7 % (2-11); Neutrophils Absolute Auto 8.3 x10*3/uL (2.0-8.3); Neutrophils Percent Auto 74.8 % (45-73); Platelet Count 305 X10*3/uL (160-400); Red Blood Count 5.16 X10*6/uL (4.60-5.80); Red Cell Distribution Width 12.3 % (11.0-16.0); White Blood Count 11.2 X10*3/uL (4.8-10.8)
[2023-09-23 12:35] LABS: Alanine Aminotransferase 18 U/L (0-40); Albumin Level 4.2 g/dL (3.5-5.0); Alkaline Phosphatase 64 U/L (39-117); Anion Gap 16 (12-20); Aspartate Amino Transferase 19 U/L (5-37); Bilirubin Total 0.6 mg/dL (0.0-1.0); Blood Urea Nitrogen 8 mg/dL (9-16); Calcium 9.5 mg/dL (8.4-10.2); Carbon Dioxide 22 mmol/L (22-29); Chloride 105 mmol/L (96-108); Estimated Glomerular Filt Rate > 60; Glucose Random 149 mg/dL (60-115); Magnesium 1.8 mg/dL (1.6-2.6); Potassium 3.9 mmol/L (3.3-5.1); Sodium 139 mmol/L (135-145); Total Protein 7.1 g/dL (6.5-8.0)
--- NOTE | 2023-09-23 12:35 | PC.NURSE ---
pt a&ox3, pt states that he has been going through alot of stressors recently, pt states his , he is looking for a new place to live, trying to get permanent custody of children and having to go to court for all this. pt complaining of mid sternal chest pain, IV insterted, labs drawn, ekg performed,hospital monitor applied- nsr on monitor, providers notified/now at bedside, call leon within reach, family at bedside, will continue to monitor
[2023-09-23 12:44] LABS: Troponin-I High Sensitivity < 2.7 ng/L (<3.5-35.0)
[2023-09-23 12:50] LABS: INTERNATIONAL NORM RATIO 0.9 (0.9-1.1); Prothrombin Time 11.1 SEC (11.1-13.3)
[2023-09-23 12:59] LABS: Influenza A PCR NEGATIVE (Negative); Influenza B PCR NEGATIVE (Negative); Resp Syncy Virus RNA Qual PCR NEGATIVE (Negative); SARS COV2 PCR INHOUSE NEGATIVE (Negative)
[2023-09-23] MEDS: LORazepam 2 MG/ML VIAL 1 MG IVPUSH (13:15)
[2023-09-23] MEDS: Morphine Sulfate 4 MG/ML CARTRIDGE IVPUSH (13:16)
--- NOTE | 2023-09-23 13:17 | PC.NURSE ---
pt medicated for anxiety and pain per order, potline monitor sinus, vss
--- NOTE | 2023-09-23 14:15 | PC.NURSE ---
pt sleeping, wakes to verbal stimulus, air sampling and monitoring intact sinus emili on monitor, call leon within reach, will continue to monitor
[2023-09-23 14:18] VITALS: BP 96/64; PULSE 66; RESP 25; O2SAT 95
[2023-09-23 15:37] LABS: Troponin-I High Sensitivity < 2.7 ng/L (<3.5-35.0)
[2023-09-23 16:00] VITALS: BP 118/80; PULSE 68; RESP 16; TEMP 36.8; O2SAT 97
[2023-09-23 16:17] VITALS: BP 118/80; PULSE 68; RESP 16; TEMP 36.8; O2SAT 97
== END 2023-09-23 16:18 | disposition home or self-care (01) ==
PROVIDERS: Physician Assistant Medical; Registered Nurse Emergency; Emergency Provider Emergency Medicine; PCP Physician Assistant
DX: R07.89 Other chest pain (principal); R61 Generalized hyperhidrosis; Z03.818 Encounter for observation for suspected exposure to other biological agents ruled out; Z79.899 Other long term (current) drug therapy
CPT/HCPCS: 0241U; 36415; 71045; 80053; 83735; 84484; 85025; 85610; 93005; 96374; 96375; 99284; 99285; J2060; J2270

== ENCOUNTER → 2023-09-23 11:58 | Outpatient (BNV) | payer OTHER, SELFPAY | PROVIDERS: Emergency Provider Emergency Medicine; PCP Physician Assistant; Visit Provider Internal Medicine Cardiovascular Disease | DX: R07.9 Chest pain, unspecified (principal) | CPT/HCPCS: 93010 ==

== ENCOUNTER 2023-10-23 09:33 | Outpatient (AMB) | payer OTHER, SELFPAY ==
[2023-10-23 09:33] VITALS: BP 114/70; PULSE 84; O2SAT 98; BMI 28.1
--- NOTE | 2023-10-23 09:33 | MHC.PC.OV ---
Vital Signs 10/23/23 09:33 Height 5 ft 8 in Weight 185 lb 2 oz BMI 28.1 BP 114/70 Blood Pressure Location Lt brachial Position Sitting Pulse 84 Pulse Source Pulse Oximeter Pulse Oximetry (%) 98 Oxygen Delivery Method Room Air Intake Visit Reasons: 10/19 [facility]-see comments Tile Layer Drainage Required: No Accompanied by: Child Allergies fish oil Allergy (Unknown, Verified 10/23/23 09:46) Unknown diphenhydramine [From Benadryl] Allergy (Verified 10/23/23 09:46) Anaphylaxis SEAFOOD Allergy (Severe, Uncoded 10/23/23 09:46) HIVES,SWELLING THROAT Medication List - Last Reconciled 10/23/23 by Yonatan Good PA-C albuterol sulfate 90 mcg/actuation (Ventolin HFA) 2 puffs inhalation Q4-6H PRN 30 days clonidine HCl 0.1 mg PO BID PRN 30 days famotidine 40 mg PO BEDTIME 90 days fexofenadine (Kim Allergy) 180 mg PO DAILY 90 days fluticasone propionate 50 mcg/actuation 2 sprays intranasal DAILY levofloxacin 750 mg PO DAILY Tobacco use date assessed: 10/23/23 Dental Screening Dental Screen Date: 02/18/23 HPI 10/19 [facility]-see comments HPI Details Patient is a 47 year male here today for a hospital discharge follow-up. Patient's past history significant for vitamin-D deficiency, major depressive disorder GERD, inflammatory bowel disease, chronic rhinitis. HAS AN DEALING WITH A LOT OF STRESS AND ANXIETY OF LATE DOES HE IS A SINGLE PARENT, RECENTLY LOST HIS TO CANCER.. Was recently seen at [facility] for testicular pain/lower abdominal pain and some difficulty with urination and weak urinary flow. Apparently urinalysis did show an infection. He was placed on levofloxacin 750 mg. Ultrasound did show a left testicular cyst in slight asymmetric hyperemia of the left epididymal tail and was advised to follow up with the urologist. Currently still has pain and swelling in the left side of his testicle. CHRONIC MEDICAL CONDITIONS--> ? Inflammatory bowel disease: Patient is followed by GI , reports his stools are now normal. Has not had any acute flare ups. Currently not on any disease modifying drug. He be following back up his GI specialist. .. COPD: Patient now followed by pulmonology and continues on Ventolin as needed. He reports he generally has stop smoking, still has his cigarette from time to time. He reports in the mornings having a somewhat productive cough. Now seeing pulmonology note was sent for chest CT which did show a 7 mm right pulmonary nodule that is stable from previous imaging in 2019 consider benign. He otherwise reports his pulmonary status is stable. .. Anxiety: He reports his anxiety and stress has been elevated as he has been having some personal issues. He is taking care of his son alone. He is somewhat depressed at as well. He is interested in as-needed medication for his anxiety to help him come down. [facility] Surgical History Hx of endoscopy History of colonoscopy Hx of cholecystectomy H/O knee surgery History of appendectomy History of hand surgery History of laparoscopic cholecystectomy (~11/2019) Family History Mother Hepatitis C Hypertension Diabetes Father Hepatitis C Hypertension Cancer Paternal Grandfather History of prostate cancer Hypertension Sister Diabetes Maternal Aunt Brain cancer Paternal Uncle History of prostate cancer Social History Housing: House Alcohol intake: never Patient Tobacco Use Status: Former Tobacco user Tobacco use type: Cigarette Cigarettes Per Day: 6 e-Cigarette/Vaping Use: Never Used Substance Use Type: Marijuana service: No Current occupational status: unemployed 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 1. Little interest or pleasure in doing things: nearly every day 2. Feeling down, depressed, or hopeless: nearly every day 3. Trouble falling or staying asleep, or sleeping too much: nearly every day 4. Feeling tired or having little energy: more than half the days 5. Poor appetite or overeating: more than half the days 6. Feeling bad about yourself - or that you are a failure or have let yourself or your family down: several days 7. Trouble concentrating on things, such as reading the newspaper or watching television: several days 8. Moving or speaking so slowly that other people could have noticed. Or the opposite - being so fidgety or restless that you have been moving around a lot more than usual: not at all 9. Thoughts that you would be better off or of hurting yourself in some way: not at all Total score: 15 Depression Screening Interpretation: Positive Depression Screening Follow-up: Existing condition, In treatment and New Medication prescribed Depression Screening Done: Yes 41554 - PHQ-9 Billing: Yes Source: Developed by Drs. Lan Thurman, Janee Marquez, Beck Parkinson and colleagues, with an educational ole from [employer]. Thrive Questionnaire Date Thrive assessed: 10/23/23 I am a: Patient What is your living situation today?: I have a steady place to live Within the past 12 months, did the food you bought not last and you didn't have the money to get more?: Never true Within the past 12 months, did you worry whether your food would run out before you got money to buy more?: Never true Do you have trouble paying for medicines?: No Do you have trouble getting transportation to medical appointments?: No Do you have trouble paying your heating and electricity bill?: No Do you have trouble taking care of your child, family member or friend?: No Do you have trouble with day-to-day activities such as bathing, preparing meals, shopping, managing finances, etc.?: No Are you currently unemployed and looking for a job?: No Are you interested in more education?: No Please select the resources that you would like help with: None Currently or been in a relationship where the following occur: No concerns reported THRIVE Score: 0 AUDIT C Alcohol Use Questionnaire (AUDIT-C) 1. How often do you have a drink containing alcohol?: Never 3. How often do you have six or more drinks on one occasion?: Never Total Score: 0 Score Reviewed/Action Taken: No JAKI-7 AMB Questionnaire JAKI-7 Date JAKI - 7 assessed: 10/23/23 Feeling nervous, anxious, or on edge: 2 = More than half the days Not being able to stop or control worryin = More than half the days Worrying too much about different things: 2 = More than half the days Trouble relaxin = More than half the days Being so restless that it is hard to sit still: 3 = Nearly every day Becoming easily annoyed or irritable: 3 = Nearly every day Feeling afraid as if something awful might happen: 0 = Not at all Total JAKI-7 score (0-4 normal; 5-9 mild; 10-14 moderate; 15-21 severe): 14 Source: Developed by Drs. Lan Thurman, Janee Marquez, Beck Parkinson and colleagues, with an educational ole from [employer]. JAKI-7 Assessment Billing JAKI-7 Assessment Tool: JAKI-7 Assessment 70116 Review of Systems Const Denies headache(s) Eyes Denies loss of vision ENT Denies vertigo, Denies dizziness, Denies headache(s) and Denies sore throat Card Denies chest pain, Denies leg edema and Denies lightheadedness Resp Denies cough, Denies hemoptysis and Denies wheezing GI Denies abdominal pain, Denies melena, Denies constipation, Denies diarrhea and Denies vomiting Denies dysuria, Denies urinary frequency and Denies urinary urgency Musc Denies arthralgias, Denies joint swelling, Denies numbness and Denies tingling Neuro Denies Abnormal speech present, Denies behavioral changes, Denies vertigo, Denies dizziness, Denies headache(s), Denies loss of vision, Denies memory loss, Denies numbness and Denies tingling Psych Denies anxiety, Denies behavioral changes, Denies depression, Denies memory loss and Denies panic attacks Andrae/Lymph Denies easy bleeding and Denies easy bruising Aller/Immun Denies wheezing Physical exam (Primary Care) Vital Signs: Last Vital Signs Pulse 84 10/23/23 09:33 BP 114/70 10/23/23 09:33 Pulse Ox 98 10/23/23 09:33 Oxygen Delivery Method Room Air 10/23/23 09:33 BMI result Body Mass Index 28.1 Tobacco/Smoking Status: Tobacco use Status Tobacco use date assessed 10/23/23 10/23/23 09:43 Patient Tobacco Use Status Former Tobacco user 10/23/23 09:38 Tobacco use type Cigarette 10/23/23 09:38 e-Cigarette/Vaping Use Never Used 10/23/23 09:38 PHQ-9: PHQ-9 Score PHQ-9: Total score 15 10/23/23 09:44 Depression Screening Interpretation: Positive Depression Screening Follow-up: Existing condition, In treatment and New Medication prescribed Thrive Assessment: Date of Thrive Assessment Date Thrive assessed 10/23/23 10/23/23 09:43 Currently or been in a relationship where the following occur: No concerns reported Const General: healthy appearing, no acute distress, alert and awake Nutritional Appearance: well nourished Orientation/consciousness: oriented to person, oriented to place and oriented to time HENMT Ears: TM's normal bilaterally General nose exam: Normal nasal mucous membranes and turbinates present Eyes Conjunctivae: conjunctivae normal Sclerae: sclerae normal Pupils: Equal, round and reactive pupils present Neck Neck: Yes no lymphadenopathy and Yes no JVD Thyroid: Thyroid normal Carotids: no bruits Resp Effort & Inspection: normal respiratory effort and not tachypneic Auscultation: no crackles, no rales, no rhonchi and no wheezes Cardio Rate: regular rate Rhythm: regular rhythm Heart sounds: no murmurs and normal S1 and S2 GI Palpation (GI): Soft to palpation, nontender, no hepatomegaly and no splenomegaly Auscultation: normal bowel sounds Skin General skin exam: no rashes or lesions noted and dry skin Neuro General: oriented to person, oriented to place and oriented to time Cranial nerves: Yes Equal, round and reactive pupils present Speech: No Abnormal speech present Gait exam (Neuro): Normal gait present Motor exam (neuro): no tremor noted Extrem Right upper extremity: full ROM Left upper extremity: full ROM Right lower extremity: full ROM; no edema Left lower extremity: full ROM; no edema Psych Mental Status: mental status grossly normal Speech and movement: Normal speech and movement present Affect: normal affect Attitude: cooperative Thought process: Normal thought process present Assessment and Plan Assessment & Plan (1) Epididymitis: Code(s): N45.1 - Epididymitis Plan: Still awaiting records from [facility]. He reports he was placed on levofloxacin for some kind of a testicular/bladder infection. Likely has epididymitis. Will refer to Urology for further evaluation treatment. (2) Testicular pain: Code(s): N50.819 - Testicular pain, unspecified Qualifiers: Laterality: left Qualified Code(s): N50.812 - Left testicular pain Plan: As above, the patient's ultrasound did show 1.5 cm cystic like mass in the left testicle region. Will refer to Urology for further workup. (3) MDD (major depressive disorder), recurrent episode, moderate: Code(s): F33.1 - Major depressive disorder, recurrent, moderate Plan: Has been suffering with more depressed as of late due to increased stress in his life. Reports his and currently battling for housing and taking care of his son alone. He does have a counselor that he speaks with on a weekly basis. He is willing to start SSRI therapy again for his depressive thoughts and moods. (4) Dermatitis: Code(s): L30.9 - Dermatitis, unspecified Plan: Has noted a rash over his underbelly thus will supply with dual anti fungal and topical steroid cream. (5) Urinary retention: Code(s): R33.9 - Retention of urine, unspecified Plan: Patient does report some urinary retention thus will set him up with tamsulosin for better urinary flow Orders: Referrals Urology Referral N45.1 - Epididymitis, N50.812 - Left testicular pain Medications: New sertraline 50 mg PO DAILY 30 tabs 2RF 30 days F33.1 - Major depressive disorder, recurrent, moderate tamsulosin 0.4 mg PO DAILY 30 caps 0RF 30 days R33.9 - Retention of urine, unspecified clotrimazole-betamethasone 1-0.05 % 1 appl topical BID 45 grams 0RF 30 days L30.9 - Dermatitis, unspecified prednisone 20 mg PO DAILY 7 tabs 0RF 7 days N50.812 - Left testicular pain tramadol 50 mg PO DAILY 6 tabs 0RF 6 days N45.1 - Epididymitis Refilled fluticasone propionate 50 mcg/actuation administer into each nostril 2 sprays intranasal DAILY 16 grams 1RF J30.89 - Other allergic rhinitis fexofenadine (Kim Allergy) 180 mg PO DAILY 90 tabs 1RF 90 days J30.89 - Other allergic rhinitis, R05 - Cough Coding Level of Care Code Est Pt Level 4 (11107) Diagnoses Epididymitis N45.1 Pain in left testicle N50.812 Laterality: left MDD (major depressive disorder), recurrent episode, moderate F33.1 Dermatitis L30.9 Urinary retention R33.9 Additional Codes JAKI-7 Assessment Billing - JAKI-7 Assessment Tool: JAKI-7 Assessment [id number] ([id number])
== END 2023-10-23 10:12 | disposition home or self-care (01) ==
PROVIDERS: PCP Physician Assistant; Visit Provider Physician Assistant
DX: N45.1 Epididymitis (principal); F33.1 Major depressive disorder, recurrent, moderate; N50.812 Left testicular pain; L30.9 Dermatitis, unspecified; R33.9 Retention of urine, unspecified
CPT/HCPCS: 99214

== ENCOUNTER 2023-12-08 08:06 | Outpatient (AMB) | payer OTHER, SELFPAY ==
--- NOTE | 2023-12-08 08:19 | A.OFFVIS_ITS ---
Intake Visit Reasons: epididymitis/testicular pain Intake Note: New Patient presents for initial visit for epididymitis and testicular pain Urology Medications: none Blood Thinner: none Learning And Development Director Required: No Accompanied by: Self / Same As Patient Allergies fish oil Allergy (Unknown, Verified 12/08/23 16:03) Unknown diphenhydramine [From Benadryl] Allergy (Verified 12/08/23 16:03) Anaphylaxis SEAFOOD Allergy (Severe, Uncoded 12/08/23 16:03) HIVES,SWELLING THROAT Medication List - Last Reconciled 12/08/23 by ARTHUR Bejarano- albuterol sulfate 90 mcg/actuation (Ventolin HFA) 2 puffs inhalation Q4-6H PRN 30 days clotrimazole-betamethasone 1-0.05 % 1 appl topical BID 30 days doxycycline hyclate 100 mg PO BID 14 days famotidine 40 mg PO BEDTIME 90 days fexofenadine (Kim Allergy) 180 mg PO DAILY 90 days fluticasone propionate 50 mcg/actuation 2 sprays intranasal DAILY HPI Comments Details: Juan C is a very pleasant 47-year-old male patient of Dr. Good. He has a past medical history of asthma and allergies. He presents to the office today has a new patient for nephrolithiasis, microscopic hematuria, and ongoing testicular pain he has been experiencing. In discussion with the patient today he reports having seeked emergency room care at [facility] for left-sided testicular/scrotal pain he had been experiencing at which time was diagnosed with orchitis and prescribed an antibiotic and recommendations were made for urology referral for further assessment evaluation. He reports having completed antibiotic therapy as prescribed and felt symptoms had been getting better however noted over the last few days symptoms returned. On exam today the penis is uncircumcised the left testicle is mildly enlarged when compared to right testicle and tender to touch upon palpation. Left epididymal cyst noted. Otherwise no open areas, lesions, and or drainage noted within the area. Patient reports a longstanding history of left-sided testicular/scrotal discomfort over the last 3-4 years. He discusses being incarcerated for many years and feels this has been an ongoing issues for him. He also discusses his history of nephrolithiaisis and recently passing a kidney stone. In office urinalysis results results reviewed with the patient today 1+ protein and 3+ microscopic hematuria. When asked he does report a long standing smoking history of nicotine dependence and recreation marijuana. When asked he denies urinary urgency, urinary frequency, incontinence, nocturia, hematuria, dysuria, foul smelling urine, changes to urinary stream, flank pain, fever, and or chills. He is happy with his current voiding parameters. Discussed obtaining scrotal ultrasound and CT urogram for further assessment evaluation. He otherwise offers no other issues or concerns at this time. PFS Surgical History Hx of endoscopy History of colonoscopy Hx of cholecystectomy H/O knee surgery History of appendectomy History of hand surgery History of laparoscopic cholecystectomy (~11/2019) Family History Mother Hepatitis C Hypertension Diabetes Father Hepatitis C Hypertension Cancer Paternal Grandfather History of prostate cancer Hypertension Sister Diabetes Maternal Aunt Brain cancer Paternal Uncle History of prostate cancer Social History Housing: House Alcohol intake: never Patient Tobacco Use Status: Former Tobacco user Tobacco use type: Cigarette Cigarettes Per Day: 6 e-Cigarette/Vaping Use: Never Used Substance Use Type: Marijuana service: No Current occupational status: unemployed 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 Cognitive needs: No Hearing needs: No Vision needs: No Review of Systems Const All systems reviewed & are unremarkable except as noted in HPI and below Physical Exam Const General: cooperative, comfortable, no acute distress, well developed, alert and awake Orientation/consciousness: patient oriented x3 HEENT Head: Yes normal to inspection, Yes normocephalic and Yes atraumatic Ears: hearing grossly normal bilaterally Eyes General: appearance normal, both eyes and all related structures Neck Neck: Yes normal visual inspection and Yes trachea midline Chest Chest palpation & inspection: normal inspection of the chest Resp Effort & Inspection: normal respiratory effort and able to speak in complete sentences Cardio Rate: regular rate GI Inspection: Yes normal to inspection Other: as per HPI General: Yes no CVA tenderness Penis: normal penis and uncircumcised Back/Spine/Pelvis Back: no CVA tenderness Skin General skin exam: no rashes or lesions noted Neuro General: patient oriented x3 Extrem General: Yes normal to inspection Psych Appearance: grossly normal and well kempt Mental Status: mental status grossly normal Speech and movement: Normal speech and movement present and Clear speech present Affect: normal affect Attitude: cooperative Thought process: Normal thought process present Thought content: Normal thought content present Insight: Fair insight present (Psych) Judgement: Fair judgement present (Psych) Results AMB Urinalysis, Automated UA Leukoctes 0 Bridger/uL Last Edit by Neisha Diamond on 12/08/23 08:33 UA Nitrite Last Edit by Neisha Diamond on 12/08/23 08:33 UA Urobilinogen 0.2 mg/dL Last Edit by Neisha Diamond on 12/08/23 08:33 UA Protein 30 mg/dL Last Edit by Neisha Diamond on 12/08/23 08:33 UA pH 6.0 Last Edit by Neisha Peggyjuan on 12/08/23 08:33 UA Blood 200 Dk/uL Last Edit by Neisha Diamond on 12/08/23 08:33 UA Specific [place] 1.030 Last Edit by Neisha Diamond on 12/08/23 08:33 UA Ketone Negative Last Edit by Neisha Diamond on 12/08/23 08:33 UA Bilirubin 0 mg/dL Last Edit by Neisha Diamond on 12/08/23 08:33 UA Glucose 0 mg/dL Last Edit by Neisha Diamond on 12/08/23 08:33 Results Reviewed Results Reviewed: Laboratory Last Values Urine pH (Auto) 6.0 12/08/23 08:31 Specific [place] (Auto) 1.030 12/08/23 08:31 Urine Protein (Auto) 30 mg/dL 12/08/23 08:31 Glucose (UA)(Auto) 0 mg/dL 12/08/23 08:31 Urine Ketones (Auto) Negative 12/08/23 08:31 Urine Blood (Auto) 200 Dk/uL 12/08/23 08:31 Urine Bilirubin (Auto) 0 mg/dL 12/08/23 08:31 Urine Urobilinogen (Auto) 0.2 mg/dL 12/08/23 08:31 Leukocyte Esterase (Auto) 0 Bridger/uL 12/08/23 08:31 Assessment & Plan Assessment & Plan (1) Testicular pain: Code(s): N50.819 - Testicular pain, unspecified Category: Medical Qualifiers: Laterality: left Qualified Code(s): N50.812 - Left testicular pain (2) Nicotine dependence: Code(s): F17.200 - Nicotine dependence, unspecified, uncomplicated Category: Medical (3) Microscopic hematuria: Code(s): R31.29 - Other microscopic hematuria Category: Medical (4) Nephrolithiasis: Code(s): N20.0 - Calculus of kidney Category: Medical Plan In office urinalysis results reviewed with the patient today; as noted above; will send for urine cytology. Will obtain stat scrotal ultrasound for further assessment evaluation. Will obtain CT urogram for further assessment evaluation. BUN and creatinine ordered for imaging. Start doxycycline as discussed and prescribed. Discussed seeking emergency room care for worsening symptoms. Discussed at length potential causes of scrotal discomfort, nephrolithiasis, and gross hematuria. Discussed possible near future in office cystoscopy. Follow-up in 2-4 weeks; or sooner with any issues, concerns, and or question. Orders: Orders Blood Urea Nitrogen Today R39.15 - Urgency of urination AMB Urinalysis Automated Today Z13.9 - Encounter for screening, unspecified CT urogram Today F17.200 - Nicotine dependence, unspecified, uncomplicated, R31.29 - Other microscopic hematuria Creatinine Today R39.15 - Urgency of urination US scrotum Today N50.812 - Left testicular pain Urine Cytology Today R31.29 - Other microscopic hematuria Medications: New doxycycline hyclate 100 mg PO BID 14 days 28 tabs 0RF N39.0 - Urinary tract infection, site not specified, N45.1 - Epididymitis Patient Instructions: The patient had an opportunity to ask questions regarding the treatment plan. All questions were answered. Physical exam, labs, and imaging were discussed and reviewed in detail. As well as risks, benefits, and discussion of treatment choices. No major barriers to understanding were identified. The patient expressed understanding and agreement with the above treatment plan. The patient was made aware they should contact our office by phone for worsening of their current condition, the appearance of new symptoms, or with any questions or concerns. Compliance is encouraged with any medications and follow up testing that is ordered. It is a privilege to be allowed the opportunity to participate in? your urological care.? Again, if you have any questions or concerns If you have any questions or concerns please do not hesitate to contact me. The office is [phone]. This note is constructed using voice recognition software. While every effort has been made to ensure accuracy rn new graduate errors may have been included. Yours sincerely, ARTHUR Bejarano-MARGARET Coding Level of Care Code New Pt Level 4 (17747) Diagnoses Pain in left testicle N50.812 Laterality: left Nicotine dependence F17.200 Microscopic hematuria R31.29 Nephrolithiasis N20.0
== END 2023-12-08 08:45 | disposition home or self-care (01) ==
PROVIDERS: PCP Physician Assistant; Visit Provider Nurse Practitioner Family
DX: N50.812 Left testicular pain (principal); F17.200 Nicotine dependence, unspecified, uncomplicated; R31.29 Other microscopic hematuria; N20.0 Calculus of kidney; Z13.9 Encounter for screening, unspecified
CPT/HCPCS: 99204

== ENCOUNTER 2023-12-08 08:06 | Outpatient (REF) | payer OTHER, SELFPAY ==
[2023-12-08 16:35] LABS: Urine Cytology See Pathology rpt
== END 2023-12-08 08:07 | disposition home or self-care (01) ==
LOC: HO.LNP 08:06
PROVIDERS: PCP Physician Assistant; Visit Provider Nurse Practitioner Family
DX: R31.29 Other microscopic hematuria (principal); N50.812 Left testicular pain; N20.0 Calculus of kidney; F17.210 Nicotine dependence, cigarettes, uncomplicated
CPT/HCPCS: 81003; 88112; 99202

== ENCOUNTER 2023-12-30 09:24 | Outpatient (AMB) | payer OTHER, SELFPAY ==
--- NOTE | 2023-12-30 09:42 | A.OFFVIS_ITS ---
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: No Accompanied by: Self / Same As Patient Allergies fish oil Allergy (Unknown, Verified 12/30/23 09:46) Unknown diphenhydramine [From Benadryl] Allergy (Verified 12/30/23 09:46) Anaphylaxis SEAFOOD Allergy (Severe, Uncoded 12/30/23 09:46) HIVES,SWELLING THROAT Medication List - Last Reconciled 12/30/23 by Yuniel Rosario MD albuterol sulfate 90 mcg/actuation (Ventolin HFA) 2 puffs inhalation Q4-6H PRN 30 days clotrimazole-betamethasone 1-0.05 % 1 appl topical BID 30 days doxycycline hyclate 100 mg PO BID 14 days famotidine 40 mg PO BEDTIME 90 days fexofenadine (Kim Allergy) 180 mg PO DAILY 90 days fluticasone propionate 50 mcg/actuation 2 sprays intranasal DAILY sulfamethoxazole-trimethoprim 400-80 mg (Bactrim) 1 tab PO BEDTIME 90 days HPI Comments Details: Juan C is a pleasant 47-year-old male. He is a patient of Dr. Good. He seen for the following urologic conditions - cystitis - left epididymitis Left epididymitis with scarring Persistent pain On exam scarring through the tail of the epididymis Suggest epididymectomy - discussion regarding possible testicular loss Cystitis Seen on imaging Persistent microscopic hematuria Will trial low-dose Bactrim [facility] Surgical History Hx of endoscopy History of colonoscopy Hx of cholecystectomy H/O knee surgery History of appendectomy History of hand surgery History of laparoscopic cholecystectomy (~11/2019) Family History Mother Hepatitis C Hypertension Diabetes Father Hepatitis C Hypertension Cancer Paternal Grandfather History of prostate cancer Hypertension Sister Diabetes Maternal Aunt Brain cancer Paternal Uncle History of prostate cancer Social History (Reviewed 12/08/23 @ 08:31 by Neisha Alex Housing: House Alcohol intake: never Patient Tobacco Use Status: Former Tobacco user Tobacco use type: Cigarette Cigarettes Per Day: 6 e-Cigarette/Vaping Use: Never Used Substance Use Type: Marijuana service: No Current occupational status: unemployed 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 Cognitive needs: No Hearing needs: No Vision needs: No Review of Systems Const Denies chills and Denies fever(s) Card Reports no additional complaints and Denies syncope Resp Denies cough GI Denies abdominal pain and Denies heartburn Reports as per HPI and Denies change in libido Neuro Denies syncope Psych Denies change in libido Endo Denies change in libido Physical Exam Const General: cooperative, healthy appearing, comfortable and no acute distress Orientation/consciousness: patient oriented x3 HEENT Face and sinus: Yes normal facial exam Mouth: moist mucous membranes Neck Neck: Yes normal visual inspection, Yes full ROM and Yes trachea midline Chest Chest palpation & inspection: normal inspection of the chest Resp Effort & Inspection: normal respiratory effort, able to speak in complete sentences and no respiratory distress GI Inspection: Yes normal to inspection Back/Spine/Pelvis Cervical Spine: normal cervical lordosis Thoracic/Lumbar Spine: thoracic and lumbar spine normal to inspection Skin General skin exam: no rashes or lesions noted Neuro General: patient oriented x3, gait normal, tone normal and moves all extremities Extrem General: Yes normal to inspection and Yes capillary refill normal Assessment & Plan Assessment & Plan (1) Testicular pain: Code(s): N50.819 - Testicular pain, unspecified Category: Medical Qualifiers: Laterality: left Qualified Code(s): N50.812 - Left testicular pain (2) Cystitis: Code(s): N30.90 - Cystitis, unspecified without hematuria Category: Medical Plan Low-dose antibiotics for cystitis Risks, benefits and alternatives to therapy were discussed. These include but are not limited to infection, bleeding, damage to local organs and tissues, need for further interventions. Anesthetic risks regarding cardiac arrhythmia, blood clots, and potential mortality were discussed. The patient understands the typical recovery time and the outpatient nature of the procedure. After consideration of these risks the patient gives full informed consent and they wish to move ahead with the procedure. Left epididymectomy Medications: New sulfamethoxazole-trimethoprim 400-80 mg (Bactrim) 1 tab PO BEDTIME 90 days 90 tabs 0RF N30.90 - Cystitis, unspecified without hematuria, N39.0 - Urinary tract infection, site not specified Coding Level of Care Code Est Pt Level 4 (23200) Diagnoses Pain in left testicle N50.812 Laterality: left Cystitis N30.90
== END 2023-12-30 10:19 | disposition home or self-care (01) ==
PROVIDERS: PCP Physician Assistant; Visit Provider Urology
DX: N50.812 Left testicular pain (principal); N30.90 Cystitis, unspecified without hematuria
CPT/HCPCS: 99214

== ENCOUNTER → 2023-12-30 09:24 | Outpatient (BNVA) | payer OTHER, SELFPAY | PROVIDERS: PCP Physician Assistant; Visit Provider Urology | DX: N50.812 Left testicular pain (principal); N30.91 Cystitis, unspecified with hematuria; R31.29 Other microscopic hematuria | CPT/HCPCS: 99212 ==

== ENCOUNTER 2024-01-05 10:29 | Day surgery (SDC) | payer OTHER, SELFPAY ==
--- NOTE | 2024-01-02 12:57 | HO.ANESPROP2 ---
Documented by User: Whit Hastings NP 01/02/24 12:59 HPI - Anesthesia Eval Consult details Narrative: 48yo M for Left Epididymectomy PMFSH Active Problems Active Problems: All Active Problems Cystitis (Acute) Nephrolithiasis (Acute) Nicotine dependence (Acute) Microscopic hematuria (Acute) Urinary retention (Acute) Epididymitis (Acute) Dermatitis (Acute) Testicular pain (Acute) JAKI (generalized anxiety disorder) (Acute) Obese (Acute) Left arm numbness (Acute) MDD (major depressive disorder), recurrent episode, moderate (Acute) Emphysema lung (Acute) Trigger finger, right middle finger (Acute) Insomnia (Acute) Adult general medical exam (Acute) Sinusitis (Acute) Pulmonary nodules (Acute) Locking finger joint (Acute) Screening for diabetes mellitus (Acute) Blood per rectum (Acute) Crohn's disease (Acute) Wheezing (Acute) Cough (Acute) Hypercholesteremia (Acute) Diarrhea (Acute) Screening for hypothyroidism (Acute) Screening for hypercholesterolemia (Acute) Allergic rhinitis (Acute) Gallstones (Acute) PTSD (post-traumatic stress disorder) (Acute) Renal colic (Acute) Hypertension (Acute) GERD (gastroesophageal reflux disease) (Acute) Low back pain (Acute) Anxiety (Acute) Past Medical History Medical History GERD (gastroesophageal reflux disease) Smoker Family History Family History Mother Hepatitis C Hypertension Diabetes Father Hepatitis C Hypertension Cancer Paternal Grandfather History of prostate cancer Hypertension Sister Diabetes Maternal Aunt Brain cancer Paternal Uncle History of prostate cancer Surgical History Surgical History Hx of endoscopy History of colonoscopy Hx of cholecystectomy H/O knee surgery History of appendectomy History of hand surgery History of laparoscopic cholecystectomy (~11/2019) Social History Social History Housing: House Are you a primary direct care specialist to a significant other at home: No Do you presently have visiting nurse or other home services: No Alcohol intake: never Patient Tobacco Use Status: Current everyday Tobacco user Tobacco use type: Cigarette Cigarettes Per Day: 6 Smoked in Last 30 Days: Yes e-Cigarette/Vaping Use: Never Used Patient Given Instructions on How to Stop Smoking: No Substance Use Type: Marijuana Substance Use Frequency: Daily Have you been hit, kicked, punched, or otherwise hurt by someone within the past year? 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 Rate : 067 BPM Atrial Rate : 067 BPM P-R Int : 134 ms QRS Dur : 096 ms QT Int : 380 ms P-R-T Axes : 044 066 029 degrees QTc Int : 401 ms Normal sinus rhythm Normal ECG When compared with ECG of 19-JUL-2018 10:00, Previous ECG has undetermined rhythm, needs review Assessment and Plan Assessment Anesthesia Assessment: Chart Reviewed Documented by User: Chery Ferguson MD 01/05/24 12:44 PMF Past Medical History Medical History GERD (gastroesophageal reflux disease) Smoker Family History Family History Mother Hepatitis C Hypertension Diabetes Father Hepatitis C Hypertension Cancer Paternal Grandfather History of prostate cancer Hypertension Sister Diabetes Maternal Aunt Brain cancer Paternal Uncle History of prostate cancer Family history of problems with anesthesia: No Surgical History Surgical History Hx of endoscopy History of colonoscopy Hx of cholecystectomy H/O knee surgery History of appendectomy History of hand surgery History of laparoscopic cholecystectomy (~11/2019) History of Problems with Anesthesia: No Social History Social History Housing: House Are you a primary direct care specialist to a significant other at home: No Do you presently have visiting nurse or other home services: No Alcohol intake: never Patient Tobacco Use Status: Current everyday Tobacco user Tobacco use type: Cigarette Cigarettes Per Day: 6 Smoked in Last 30 Days: Yes e-Cigarette/Vaping Use: Never Used Patient Given Instructions on How to Stop Smoking: No Substance Use Type: Marijuana Substance Use Frequency: Daily Have you been hit, kicked, punched, or otherwise hurt by someone within the past year? 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 Cognitive needs: No Hearing needs: No Vision needs: No Meds Allergies Allergy/AdvReac Type Severity Reaction Status Date / Time fish oil Allergy Severe Hives Verified 01/05/24 12:03 diphenhydramine Allergy Anaphylaxis Verified 01/05/24 10:57 [From Benadryl] SEAFOOD Allergy Severe HIVES,SWELLING Uncoded 01/05/24 10:57 THROAT Exam Airway Mallampati Class: II (removable top front tooth) TM Dist: >3cm Neck ROM: Full Heart: rrr Lungs: cta Assessment and Plan Assessment Anesthesia Assessment: Anesthesia Plan Discussed Final Anesthetic Review Family History of Problems with Anesthesia: No History of Problems with Anesthesia: No NPO: Yes ASA Class: II Final Preanesthetic Review: No Changes in Pt Med Stat, Meds/Allgs Chart Reviewed and Consent Obtained/Reviewed Patient Risk: Low Procedure Risk: Low Anesthetic Plan Anesthetic Plan: GA Disposition: Standard PACU
[2024-01-05 11:07] VITALS: BMI 29.2
[2024-01-05] MEDS: Lactated Ringers 1,000 ML 100 ML IVCONT (11:47)
[2024-01-05 12:00] VITALS: BP 111/76; PULSE 76; RESP 18; TEMP 36.3; O2SAT 98
--- NOTE | 2024-01-05 15:02 | MHC.SHP ---
Pre-Procedural Eval Section A - 24 Hr Update-Section A only Date of Service: 01/05/24 The patient is an INPATIENT: No Changes since office visit: No Cold of Flu in the past 2 weeks, No New Medical Problems, No Changes in Medication and No Patient answered all questions The patient has been examined within 24 hours of the surgical procedure. The History & Physical has been completed within 30 days and I have reviewed it.: Yes Section B - Complete if H&P > 30 days Chief Complaint: Epididymitis Details of Present Illness: Left epididymectomy Allergies: Allergies Allergy/AdvReac Type Severity Reaction Status Date / Time fish oil Allergy Severe Hives Verified 01/05/24 12:03 diphenhydramine Allergy Anaphylaxis Verified 01/05/24 10:57 [From Benadryl] SEAFOOD Allergy Severe HIVES,SWELLING Uncoded 01/05/24 10:57 THROAT Plan I have reviewed the history and physical and performed a pertinent physical examination on my patient. No changes have occurred unless specified. Time Spent With Patient Time: Total time managing care of this patient today ____ minutes.
--- NOTE | 2024-01-05 16:38 | P.OP_ITS ---
Operative Note Operative Note Date of Service: 01/05/24 Narrative: PreOperative Diagnosis: Chronic left testicular pain Post Operative Diagnosis: Chronic left testicular pain Procedure: Left epididymectomy Surgeon: Dr Yuniel Rosario Anesthesia: General Indications for procedure: Chronic left testicular pain greater than 2 years' duration. Palpable thickening of vasal and epididymal head. Procedure: After informed consent was verified the patient was brought to the operating room and placed in a supine position. Anesthesia was administered per protocol. The patient was prepped and draped in a sterile fashion. Safety pause time-out was performed. Antibiotics being given. Local anesthetic was infiltrated into the left cord approximately 10 cc. Transverse incision made in upper portion of left scrotum. Incision taken down to level of the testicular sac. Testicular sac entered and dissected. Testicle delivered. Of note there were multiple cysts within the testicle. Cysts were stuck onto the testicle itself and there was clearly reactive change throughout the testicle with areas of fat deposition within the cord representin g chronic inflammation. The tail of the epididymis was isolated. A small suture was placed through the tail and this was used as a tractor in order to slowly dissect the epididymis off its attachment to the testicle. The area around the head of the epididymis was covered with fat. The head of the epididymis was carefully dissected out from these attachments. This was elevated from the testicle. The small vessel penetrating into the epididymis was isolated and divided. The entire epididymis was then removed. There was significant inflamed fat running with the cord proximally. This was out from the cord structures themselves and traced proximally. In proximal position this was clamped and dissected. A 3-0 stick tie Vicryl was then placed in order control any small vessels. This was brought down to the head of the epididymis. The fat was removed. Sutures were placed. One of the cysts on the testicle was so adhered that and removal a hole was created within the tunica. The tunica was reapproximated with running 3-0 Vicryl in order for testicular tissue to remain within the testicle. At this point the testicle was placed back into the scrotum. A layer of 3-0 Vicryl was then used to reapproximate and close the sac. Skin was closed with interrupted 3-0 chromic suture. The scrotum was cleaned and dried. Dressing was applied. Mesh pants were used to help approximate fluffs. The patient tolerated the procedure and was extubated in operating room before being transferred in stable condition to the recovery area. Pathology: Epididymis plus scrotal cystic structures Drains: []
[2024-01-05 16:45] VITALS: BP 152/89; PULSE 75; RESP 16; TEMP 36.6; O2SAT 94
[2024-01-05] MEDS: Ketorolac Tromethamine 15 MG/ML VIAL IVPUSH (16:47)
[2024-01-05] MEDS: oxyCODONE HCl Immed Release 5 MG TABLET PO (16:47)
[2024-01-05 16:50] VITALS: BP 162/99; PULSE 63; RESP 16; RESP 22; O2SAT 95
[2024-01-05] MEDS: fentaNYL citrate/PF 100 MCG/2 ML VIAL 50 MCG IVPUSH ×2 (16:50→16:55)
[2024-01-05 16:55] VITALS: BP 168/90; PULSE 56; RESP 18; O2SAT 94
[2024-01-05 17:00] VITALS: BP 173/85; PULSE 56; RESP 16; O2SAT 96
[2024-01-05 17:15] VITALS: BP 156/90; PULSE 57; RESP 16; TEMP 36.4; O2SAT 96
== END 2024-01-05 17:19 | disposition home or self-care (01) ==
PROVIDERS: PCP Physician Assistant; Visit Provider Urology
PROC: (CPT 54860; principal; 2024-01-05 12:40)
DX: N45.1 Epididymitis (principal); N50.812 Left testicular pain; G89.29 Other chronic pain; N30.90 Cystitis, unspecified without hematuria; Z79.899 Other long term (current) drug therapy; Z79.51 Long term (current) use of inhaled steroids; Z88.8 Allergy status to other drugs, medicaments and biological substances; Z88.2 Allergy status to sulfonamides; Z98.890 Other specified postprocedural states; Z87.891 Personal history of nicotine dependence; Z56.0 Unemployment, unspecified
CPT/HCPCS: 54860; 88304; 88305; J0131; J0690; J1100; J1885; J2003; J2250; J2405; J2704; J2795; J3010

== ENCOUNTER → 2024-01-05 10:29 | Outpatient (BNV) | payer OTHER, SELFPAY | PROVIDERS: PCP Physician Assistant; Visit Provider Urology | DX: N45.1 Epididymitis (principal) | CPT/HCPCS: 54860 ==

== ENCOUNTER 2024-01-09 14:36 | Outpatient (AMB) | payer OTHER, SELFPAY ==
--- NOTE | 2024-01-09 14:49 | MHC.OFFVIS ---
Intake Visit Reasons: epididymitis procedure follow up Intake Note: Patient is Present for Follow Up Procedure Urology Medication: None Antibiotic Allergies: None Blood Thinners: None Patient states that the pain has increased and the swelling has gotten worse Allergies fish oil Allergy (Severe, Verified 02/11/24 14:25) Hives diphenhydramine [From Benadryl] Allergy (Verified 02/11/24 14:25) Anaphylaxis SEAFOOD Allergy (Severe, Uncoded 02/11/24 14:25) HIVES,SWELLING THROAT HPI Comments Details: Possible testicular infarct following operation Scrotum dry no evidence of infection Plan scrotal Doppler Stat scrotal Doppler shows segmental infarct in testicle proximally 1 cm Will prescribe Dilaudid PFSH Medical History GERD (gastroesophageal reflux disease) Smoker Surgical History Hx of endoscopy History of colonoscopy Hx of cholecystectomy H/O knee surgery History of appendectomy History of hand surgery History of laparoscopic cholecystectomy (~11/2019) Family History Mother Hepatitis C Hypertension Diabetes Father Hepatitis C Hypertension Cancer Paternal Grandfather History of prostate cancer Hypertension Sister Diabetes Maternal Aunt Brain cancer Paternal Uncle History of prostate cancer Social History Housing: House Are you a primary home care coordinator to a significant other at home: No Do you presently have visiting nurse or other home services: No Alcohol intake: never Patient Tobacco Use Status: Current everyday Tobacco user Tobacco use type: Cigarette Cigarettes Per Day: 6 e-Cigarette/Vaping Use: Never Used Substance Use Type: Marijuana service: No Current occupational status: unemployed 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 Cognitive needs: No Hearing needs: No Vision needs: No Review of Systems Const Denies chills and Denies fever(s) Card Reports no additional complaints and Denies syncope Resp Denies cough GI Denies abdominal pain and Denies heartburn Reports as per HPI and Denies change in libido Neuro Denies syncope Psych Denies change in libido Endo Denies change in libido Physical Exam Const General: cooperative, healthy appearing, comfortable and no acute distress Orientation/consciousness: patient oriented x3 HEENT Face and sinus: Yes normal facial exam Mouth: moist mucous membranes Neck Neck: Yes normal visual inspection, Yes full ROM and Yes trachea midline Chest Chest palpation & inspection: normal inspection of the chest Resp Effort & Inspection: normal respiratory effort, able to speak in complete sentences and no respiratory distress GI Inspection: Yes normal to inspection Back/Spine/Pelvis Cervical Spine: normal cervical lordosis Thoracic/Lumbar Spine: thoracic and lumbar spine normal to inspection Skin General skin exam: no rashes or lesions noted Neuro General: patient oriented x3, gait normal, tone normal and moves all extremities Extrem General: Yes normal to inspection and Yes capillary refill normal Assessment & Plan Assessment & Plan (1) Testicular pain: Code(s): N50.819 - Testicular pain, unspecified Category: Medical Qualifiers: Laterality: left Qualified Code(s): N50.812 - Left testicular pain Plan Reassurance Medication Orders: Orders US scrotum doppler 01/09/24 N50.812 - Left testicular pain Medications: New hydromorphone (Dilaudid) Partial Fill upon patient request. Has testicular segmental infarct and failed oxycodone. 4 mg PO Q6H PRN 20 tabs 0RF pain 7 days N50.812 - Left testicular pain Patient Instructions: Imaging studies, laboratory and physical exam results were discussed and reviewed in detail. No major barriers to patient understanding were identified. An opportunity to ask questions regarding the treatment plan was provided. All questions were answered. The patient expressed understanding and agreement with the above treatment plan. The patient is aware they should contact our office by phone for worsening of their current condition or the appearance of new urologic symptoms. Compliance is encouraged with any medications and followup testing that is ordered. It is a privilege to participate in the urologic care of your patient. If you have any questions or concerns regarding treatment for the above conditions, or other urologic issues, please do not hesitate to contact me. The office telephone contact is [phone]. This note is constructed using voice recognition software. While every effort has been made to ensure accuracy organic section technical lead errors may have been included. Yours sincerely, Dr Yuniel Rosario MD, [facility] - Urology Providers of Expert, Compassionate Care for the Genitourinary System Coding Level of Care Code Est Pt Level 3 (15641) Diagnoses Pain in left testicle N50.812 Laterality: left
== END 2024-01-09 15:50 | disposition home or self-care (01) ==
PROVIDERS: PCP Physician Assistant; Visit Provider Urology
DX: N50.812 Left testicular pain (principal)
CPT/HCPCS: 99024

== ENCOUNTER → 2024-01-09 14:36 | Outpatient (BNVA) | payer OTHER, SELFPAY | PROVIDERS: PCP Physician Assistant; Visit Provider Urology ==

== ENCOUNTER 2024-01-09 16:02 | Outpatient (REF) | payer OTHER, SELFPAY ==
--- NOTE | ~2024-01-09 | US_ITS ---
EXAMINATION: US SCROTUM CLINICAL INFORMATION: Left testicular pain. COMPARISON: None available. TECHNIQUE: A sonogram of the scrotum was performed assessing rosado-scale appearance and color Doppler flow. Spectral Doppler analysis of the arterial and venous flow were performed in the testes bilaterally. FINDINGS: RIGHT: Right testicle measures 4.4 x 2.5 x 3.1 cm, volume 17.3 mL. No focal testicular parenchymal lesions are visualized. Spectral Doppler analysis of the arterial and venous flow is normal in the right testis. Right epididymal head is normal in size. 3 mm epididymal head cyst. No right hydrocele or varicocele is seen. Right epididymal Doppler flow is normal. LEFT: Left testicle measures 4.7 x 2.8 x 3.0 cm, volume 20.2 mL. There is a geographic area of decreased echogenicity in the midportion of the left testicle measuring approximately 2.5 x 1.5 x 2.0 cm with no color Doppler flow visualized within this region. There is a lymph node in the left inguinal region. US/US scrotum doppler IMPRESSION: There is a geographic area of decreased echogenicity in the midportion of the left testicle measuring approximately 2.5 x 1.5 x 2.0 cm with no color Doppler flow visualized within this region. This could represent an area of infarction. Recommend short-term follow-up ultrasound to ensure resolution. Results were communicated to Dr. Rosario at 5:00 PM on 01/09/2024 by the research assistant member Electronically signed by: Lan Bundy MD 01/10/2024 07:29 PM EDT
--- NOTE | ~2024-01-09 | US_ITS ---
EXAMINATION: US SCROTUM CLINICAL INFORMATION: Left testicular pain. COMPARISON: None available. TECHNIQUE: A sonogram of the scrotum was performed assessing rosado-scale appearance and color Doppler flow. Spectral Doppler analysis of the arterial and venous flow were performed in the testes bilaterally. FINDINGS: RIGHT: Right testicle measures 4.4 x 2.5 x 3.1 cm, volume 17.3 mL. No focal testicular parenchymal lesions are visualized. Spectral Doppler analysis of the arterial and venous flow is normal in the right testis. Right epididymal head is normal in size. 3 mm epididymal head cyst. No right hydrocele or varicocele is seen. Right epididymal Doppler flow is normal. LEFT: Left testicle measures 4.7 x 2.8 x 3.0 cm, volume 20.2 mL. There is a geographic area of decreased echogenicity in the midportion of the left testicle measuring approximately 2.5 x 1.5 x 2.0 cm with no color Doppler flow visualized within this region. There is a lymph node in the left inguinal region. US/US scrotum IMPRESSION: There is a geographic area of decreased echogenicity in the midportion of the left testicle measuring approximately 2.5 x 1.5 x 2.0 cm with no color Doppler flow visualized within this region. This could represent an area of infarction. Recommend short-term follow-up ultrasound to ensure resolution. Results were communicated to Dr. Rosario at 5:00 PM on 01/09/2024 by the [place] Electronically signed by: Lan Bundy MD 01/10/2024 07:29 PM EDT
== END 2024-01-09 16:03 | disposition home or self-care (01) ==
LOC: HO.US 16:02
PROVIDERS: PCP Physician Assistant; Visit Provider Urology
DX: N50.812 Left testicular pain (principal)
CPT/HCPCS: 76870; 93975; 99212

== ENCOUNTER 2024-01-28 11:10 | Outpatient (AMB) | payer OTHER, SELFPAY ==
[2024-01-28 11:50] VITALS: BP 114/80; PULSE 77; O2SAT 96; BMI 30.1
--- NOTE | 2024-01-28 11:50 | MHC.PC.OV ---
Vital Signs 01/28/24 11:50 Height 5 ft 7.5 in Weight 195 lb BMI 30.1 BP 114/80 Blood Pressure Location Lt brachial Position Sitting Pulse 77 Pulse Source Pulse Oximeter Pulse Oximetry (%) 96 Oxygen Delivery Method Room Air Intake Visit Reasons: Annual Exam Intake Note: Patient is here today for a physical. 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: No Accompanied by: Son Allergies fish oil Allergy (Severe, Verified 01/28/24 12:00) Hives diphenhydramine [From Benadryl] Allergy (Verified 01/28/24 12:00) Anaphylaxis SEAFOOD Allergy (Severe, Uncoded 01/28/24 12:00) HIVES,SWELLING THROAT Medication List - Last Reconciled 01/28/24 by Yonatan Good PA-C albuterol sulfate 90 mcg/actuation (Ventolin HFA) 2 puffs inhalation Q4-6H PRN 30 days clotrimazole-betamethasone 1-0.05 % 1 appl topical BID 30 days famotidine 40 mg PO BEDTIME 90 days fexofenadine (Kim Allergy) 180 mg PO DAILY 90 days fluticasone propionate 50 mcg/actuation 2 sprays intranasal DAILY hydromorphone (Dilaudid) 4 mg PO Q6H PRN 7 days naproxen 500 mg PO BID PRN 7 days oxycodone 10 mg PO Q8H PRN 7 days sulfamethoxazole-trimethoprim 400-80 mg (Bactrim) 1 tab PO BEDTIME 90 days Tobacco use date assessed: 10/23/23 Dental Screening Dental Screen Date: 01/28/24 Did you have a dental visit in the last 12 months?: Yes Did you have a dental problem in the last 6 months where you did not have access to dental care?: No Was dental information given to patient?: Patient has dentist HPI Annual Exam HPI Details Patient is a 47 year male here today for a PE. Patient's past history significant for vitamin-D deficiency, major depressive disorder GERD, inflammatory bowel disease, chronic rhinitis. Recently underwent urology surgery removing his epididymis in his cyst. He still has some pain though reports it is much better. Now on long-term antibiotics CHRONIC MEDICAL CONDITIONS--> ? Inflammatory bowel disease: Patient is followed by GI , reports his stools are now normal. Has not had any acute flare ups. Currently not on any disease modifying drug. He be following back up his GI specialist. .. COPD: Patient now followed by pulmonology and continues on Ventolin as needed. He reports he generally has stop smoking, still has his cigarette from time to time. He reports in the mornings having a somewhat productive cough. Now seeing pulmonology note was sent for chest CT which did show a 7 mm right pulmonary nodule that is stable from previous imaging in 2019 consider benign. He otherwise reports his pulmonary status is stable. .. Anxiety: He reports his anxiety and stress has been elevated as he has been having some personal issues. He is taking care of his son alone. He is somewhat depressed at as well. He is interested in as-needed medication for his anxiety to help him come down. VAccine: Declines FLu, does report getting COVID vaccine while in [facility] Medical History GERD (gastroesophageal reflux disease) Smoker Surgical History Hx of endoscopy History of colonoscopy Hx of cholecystectomy H/O knee surgery History of appendectomy History of hand surgery History of laparoscopic cholecystectomy (~11/2019) Family History Mother Hepatitis C Hypertension Diabetes Father Hepatitis C Hypertension Cancer Paternal Grandfather History of prostate cancer Hypertension Sister Diabetes Maternal Aunt Brain cancer Paternal Uncle History of prostate cancer Social History Housing: House Are you a primary rn transitional care to a significant other at home: No Do you presently have visiting nurse or other home services: No Alcohol intake: never Patient Tobacco Use Status: Current everyday Tobacco user Tobacco use type: Cigarette Cigarettes Per Day: 6 e-Cigarette/Vaping Use: Never Used Substance Use Type: Marijuana service: No Current occupational status: unemployed 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 1. Little interest or pleasure in doing things: not at all 2. Feeling down, depressed, or hopeless: not at all 3. Trouble falling or staying asleep, or sleeping too much: not at all 4. Feeling tired or having little energy: not at all 5. Poor appetite or overeating: not at all 6. Feeling bad about yourself - or that you are a failure or have let yourself or your family down: not at all 7. Trouble concentrating on things, such as reading the newspaper or watching television: not at all 8. Moving or speaking so slowly that other people could have noticed. Or the opposite - being so fidgety or restless that you have been moving around a lot more than usual: not at all 9. Thoughts that you would be better off or of hurting yourself in some way: not at all Total score: 0 Depression Screening Interpretation: Negative Depression Screening Done: Yes 29457 - PHQ-9 Billing: Yes Source: Developed by Drs. Lan Thurman, Janee Marquez, Beck Parkinson and colleagues, with an educational ole from [employer]. Thrive Questionnaire Date Thrive assessed: 01/28/24 I am a: Patient What is your living situation today?: I have a steady place to live Within the past 12 months, did the food you bought not last and you didn't have the money to get more?: I choose not to answer this question Within the past 12 months, did you worry whether your food would run out before you got money to buy more?: I choose not to answer this question Do you have trouble paying for medicines?: I choose not to answer this question Do you have trouble getting transportation to medical appointments?: I choose not to answer this question Do you have trouble paying your heating and electricity bill?: I choose not to answer this question Do you have trouble taking care of your child, family member or friend?: I choose not to answer this question Do you have trouble with day-to-day activities such as bathing, preparing meals, shopping, managing finances, etc.?: I choose not to answer this question Are you currently unemployed and looking for a job?: I choose not to answer this question Are you interested in more education?: I choose not to answer this question Please select the resources that you would like help with: None Currently or been in a relationship where the following occur: I choose not to answer THRIVE Score: 0 AUDIT C Alcohol Use Questionnaire (AUDIT-C) 1. How often do you have a drink containing alcohol?: Never 3. How often do you have six or more drinks on one occasion?: Never Total Score: 0 JAKI-7 AMB Questionnaire JAKI-7 Date JAKI - 7 assessed: 01/28/24 Feeling nervous, anxious, or on edge: 0 = Not at all Not being able to stop or control worryin = Not at all Worrying too much about different things: 0 = Not at all Trouble relaxin = Not at all Being so restless that it is hard to sit still: 0 = Not at all Becoming easily annoyed or irritable: 0 = Not at all Feeling afraid as if something awful might happen: 0 = Not at all Total JAKI-7 score (0-4 normal; 5-9 mild; 10-14 moderate; 15-21 severe): 0 Source: Developed by Drs. Lan Thurman, Janee Marquez, Beck Parkinson and colleagues, with an educational ole from [employer]. JAKI-7 Assessment Billing JAKI-7 Assessment Tool: JAKI-7 Assessment 00171 Review of Systems Const Denies body aches, Denies chills, Denies excessive sweating, Denies fatigue, Denies fever(s) and Denies headache(s) Eyes Denies blurry vision ENT Denies dysphagia, Denies vertigo, Denies dizziness, Denies headache(s), Denies hearing loss and Denies tinnitus Card Denies chest pain, Denies chest pain with activity, Denies syncope, Denies irregular heart rhythm and Denies dyspnea Resp Denies chest congestion, Denies cough, Denies hemoptysis, Denies dyspnea and Denies wheezing GI Denies abdominal pain, Denies melena, Denies hematochezia, Denies coffee ground emesis, Denies dysphagia, Denies diarrhea, Denies nausea and Denies vomiting Denies difficulty urinating, Denies dysuria, Denies urinary frequency, Denies urinary hesitancy and Denies urinary urgency Musc Denies arthralgias, Denies limited range of motion, Denies muscle cramps and Denies muscle weakness Skin/Breast Denies rash and Denies skin ulcer Neuro Denies Abnormal speech present, Denies confusion, Denies vertigo, Denies dizziness, Denies syncope, Denies headache(s), Denies memory loss and Denies seizure-like activity Psych Denies anxiety, Denies confusion, Denies depression, Denies memory loss, Denies panic attacks and Denies paranoia Endo Denies excessive sweating, Denies fatigue, Denies flushing, Denies polydipsia and Denies polyuria Aller/Immun Denies wheezing Physical exam (Primary Care) Vital Signs: Last Vital Signs Pulse 77 01/28/24 11:50 BP 114/80 01/28/24 11:50 Pulse Ox 96 01/28/24 11:50 Oxygen Delivery Method Room Air 01/28/24 11:50 BMI result Body Mass Index 30.1 Tobacco/Smoking Status: Tobacco use Status Tobacco use date assessed 10/23/23 01/28/24 11:52 Patient Tobacco Use Status Current everyday Tobacco 01/28/24 11:52 Tobacco use type Cigarette 01/28/24 11:52 e-Cigarette/Vaping Use Never Used 01/28/24 11:52 PHQ-9: PHQ-9 Score PHQ-9: Total score 0 01/28/24 12:05 Depression Screening Interpretation: Negative Thrive Assessment: Date of Thrive Assessment Date Thrive assessed 01/28/24 01/28/24 11:52 Currently or been in a relationship where the following occur: I choose not to answer Const General: cooperative, comfortable, no acute distress, alert and awake; No confusion Orientation/consciousness: oriented to person, oriented to place, patient oriented x3 and No confusion HENMT Head: Yes normocephalic Ears: external ears normal and TM's normal bilaterally Face and sinus: No sinus tenderness Mouth: Normal oral and palatal mucosa present and tongue normal Teeth and gingiva: dentition normal and gingiva normal Throat: Yes posterior oropharynx normal, Yes tonsils normal and Yes uvula midline Eyes Conjunctivae: conjunctivae normal Sclerae: sclerae normal Pupils: Equal, round and reactive pupils present EOM: EOMs intact bilaterally Direct Ophthalmoscopy: No no photophobia Neck Neck: Yes no lymphadenopathy, No tender and Yes no JVD Thyroid: Thyroid normal Carotids: no bruits Chest Chest palpation & inspection: no tenderness Resp Effort & Inspection: normal respiratory effort, no audible wheezes, not labored and no stridor Auscultation: no crackles, no rales, no rhonchi and no wheezes Cardio Jugular venous distension: no JVD Rate: regular rate, not bradycardic and not tachycardic Rhythm: regular rhythm Bruits: no carotid bruits Peripheral pulses: Peripheral pulses 2+ throughout GI Inspection: Yes normal to inspection, No abdominal wall ecchymosis and No visible herniation Palpation (GI): Soft to palpation, nontender, no guarding, not rigid and No hepatosplenomegaly present Auscultation: normoactive bowel sounds General: Yes no CVA tenderness Back/Spine/Pelvis Back: no CVA tenderness and No back tenderness Cervical Spine: cervical ROM normal Thoracic/Lumbar Spine: thoracic and lumbar spine normal to inspection, straight leg raise negative bilaterally, No thoraco-lumbar ROM limited and No lumbar spinal tenderness Skin Lesions: no lesions Rashes: no rashes Wounds: no wounds Neuro General: oriented to person, oriented to place, patient oriented x3, CN's II-XI intact bilaterally and No confusion Cranial nerves: Yes Equal, round and reactive pupils present and Yes Normal accommodation reflex present Cognition (Neuro): normal cognition Speech: No Abnormal speech present Gait exam (Neuro): Normal gait present Motor exam (neuro): 5/5 motor strength present throughout Extrem Right upper extremity: full ROM; no cyanosis Left upper extremity: full ROM; no cyanosis Right lower extremity: no edema Left lower extremity: no edema Psych Appearance: grossly normal Mental Status: mental status grossly normal Affect: normal affect Attitude: cooperative Thought process: Normal thought process present Office Procedures Flu Questionnaire Does the patient have a severe egg allergy?: No Immunizations Fluarix Triv [id number] (PF) 45 mcg (15 mcg x 3)/0.5 mL IM syringe Performing Provider: Yonatan Good PA-C [place] [facility] [place] [facility] Documented (not given) by: LUCIA Phelps on 01/28/24 11:52 Reason Not Given: Patient Refused Coding Level of Care Code Est Pt Prev Care 40-64y(84153) Diagnoses Annual physical exam Z00.00 Shortness of breath R06.02 Primary hypertension I10 Hypertension type: primary hypertension MDD (major depressive disorder), recurrent episode, moderate F33.1 Epididymitis N45.1 Screening for diabetes mellitus Z13.1 Crohn's disease of large intestine with complication K50.119 Gastrointestinal tract location: large intestine Digestive disease complication type: unspecified complication Additional Codes JAKI-7 Assessment Billing - JAKI-7 Assessment Tool: JAKI-7 Assessment 58582 ([id number]) Assessment & Plan Assessment & Plan (1) Annual physical exam: Code(s): Z00.00 - Encounter for general adult medical examination without abnormal findings Category: Medical Plan: As per HPI (2) Shortness of breath: Code(s): R06.02 - Shortness of breath Category: Medical Plan: Will send for chest x-ray, patient does have history of pulmonary nodules. (3) Hypertension: Code(s): I10 - Essential (primary) hypertension Category: Medical Qualifiers: Hypertension type: primary hypertension Qualified Code(s): I10 - Essential (primary) hypertension Plan: Today's blood pressure in office acceptable.. Patient has a history of high blood pressure though has been able to manage with lifestyle and dietary modifications. (4) MDD (major depressive disorder), recurrent episode, moderate: Code(s): F33.1 - Major depressive disorder, recurrent, moderate Category: Medical Plan: Juan C cardoza still suffers with depression and anxiety. His from cancer a few months ago and still grieving. He does speak with a mental health therapist and feels it is helping. (5) Epididymitis: Code(s): N45.1 - Epididymitis Category: Medical Plan: Patient is status post removal of his epididymis. He reports his swelling has mostly gone down. He will continue Bactrim over the next few months. (6) Screening for diabetes mellitus: Code(s): Z13.1 - Encounter for screening for diabetes mellitus Category: Medical Plan: As per HPI (7) Crohn's disease: Code(s): K50.90 - Crohn's disease, unspecified, without complications Category: Medical Qualifiers: Gastrointestinal tract location: large intestine Digestive disease complication type: unspecified complication Qualified Code(s): K50.119 - Crohn's disease of large intestine with unspecified complications Plan: Followed by gastroenterology. Not on any particular medication as his Crohn seems to be fairly well controlled without meds. Orders: Orders Influenza [id number] Immunization Today Z23 - Encounter for immunization Lipid Panel Today E78.00 - Pure hypercholesterolemia, unspecified XR chest 2V Today R05 - Cough Comprehensive [place]. Panel Fast Today Z13.1 - Encounter for screening for diabetes mellitus Complete Blood Count no Diff Today K21.9 - Gastro-esophageal reflux disease without esophagitis Prostate Specific Antigen Scr Today K21.9 - Gastro-esophageal reflux disease without esophagitis, Z12.5 - Encounter for screening for malignant neoplasm of prostate Medications: Refilled famotidine 40 mg PO BEDTIME 90 days 90 tabs 1RF albuterol sulfate 90 mcg/actuation (Ventolin HFA) 2 puffs inhalation Q4-6H 30 days PRN 8.5 grams 3RF shortness of breath or wheezing R06.2 - Wheezing
== END 2024-01-28 16:04 | disposition home or self-care (01) ==
LOC: HO.HMCH 11:11
PROVIDERS: PCP Physician Assistant; Visit Provider Physician Assistant
DX: Z00.00 Encounter for general adult medical examination without abnormal findings (principal); F33.1 Major depressive disorder, recurrent, moderate; K50.119 Crohn's disease of large intestine with unspecified complications; R06.02 Shortness of breath; I10 Essential (primary) hypertension; N45.1 Epididymitis; Z13.1 Encounter for screening for diabetes mellitus

== ENCOUNTER → 2024-01-28 11:10 | Outpatient (BNVA) | payer OTHER, SELFPAY | PROVIDERS: PCP Physician Assistant; Visit Provider Physician Assistant | DX: Z00.01 Encounter for general adult medical examination with abnormal findings (principal); R06.02 Shortness of breath; I10 Essential (primary) hypertension; F33.1 Major depressive disorder, recurrent, moderate; N45.1 Epididymitis; K50.119 Crohn's disease of large intestine with unspecified complications | CPT/HCPCS: 90471; 96127; 99396 ==

== ENCOUNTER 2024-02-11 14:18 | Outpatient (AMB) | payer OTHER, SELFPAY ==
--- NOTE | 2024-02-11 14:20 | MHC.OFFVIS ---
Intake Visit Reasons: Epididymectomy- follow up Intake Note: Patient is present for Epididymectomy Follow Up Urology Med: None Antibiotic Allergy: None Blood Thinner: None Last Visit 01/08 patient stated he had severe pain and swelling STAT Scrotum Ultrasound was ordered and done on 01/08 Current Pain? not as bad as before only when he coughs Swelling? States that there is still some swelling Discharge? none Central Office Supervisor Required: No Accompanied by: Self / Same As Patient Allergies fish oil Allergy (Severe, Verified 02/11/24 14:25) Hives diphenhydramine [From Benadryl] Allergy (Verified 02/11/24 14:25) Anaphylaxis SEAFOOD Allergy (Severe, Uncoded 02/11/24 14:25) HIVES,SWELLING THROAT HPI Comments Details: Juan C is a pleasant 47-year-old male. He is a patient of Dr. Good. 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 This lesion is considered to represent a benign reactive fibrous proliferation in response to a previous infection or trauma Cystitis Seen on imaging Persistent microscopic hematuria Will trial low-dose Bactrim PFSH Medical History GERD (gastroesophageal reflux disease) Smoker Surgical History Hx of endoscopy History of colonoscopy Hx of cholecystectomy H/O knee surgery History of appendectomy History of hand surgery History of laparoscopic cholecystectomy (~11/2019) Family History Mother Hepatitis C Hypertension Diabetes Father Hepatitis C Hypertension Cancer Paternal Grandfather History of prostate cancer Hypertension Sister Diabetes Maternal Aunt Brain cancer Paternal Uncle History of prostate cancer Social History Housing: House Are you a primary medicare sales executive to a significant other at home: No Do you presently have visiting nurse or other home services: No Alcohol intake: never Patient Tobacco Use Status: Current everyday Tobacco user Tobacco use type: Cigarette Cigarettes Per Day: 6 e-Cigarette/Vaping Use: Never Used Substance Use Type: Marijuana service: No Current occupational status: unemployed 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 Cognitive needs: No Hearing needs: No Vision needs: No Review of Systems Const Denies chills and Denies fever(s) Card Reports no additional complaints and Denies syncope Resp Denies cough GI Denies abdominal pain and Denies heartburn Reports as per HPI and Denies change in libido Neuro Denies syncope Psych Denies change in libido Endo Denies change in libido Physical Exam Const General: cooperative, healthy appearing, comfortable and no acute distress Orientation/consciousness: patient oriented x3 HEENT Face and sinus: Yes normal facial exam Mouth: moist mucous membranes Neck Neck: Yes normal visual inspection, Yes full ROM and Yes trachea midline Chest Chest palpation & inspection: normal inspection of the chest Resp Effort & Inspection: normal respiratory effort, able to speak in complete sentences and no respiratory distress GI Inspection: Yes normal to inspection Back/Spine/Pelvis Cervical Spine: normal cervical lordosis Thoracic/Lumbar Spine: thoracic and lumbar spine normal to inspection Skin General skin exam: no rashes or lesions noted Neuro General: patient oriented x3, gait normal, tone normal and moves all extremities Extrem General: Yes normal to inspection and Yes capillary refill normal Assessment & Plan Assessment & Plan (1) Epididymitis: Code(s): N45.1 - Epididymitis Category: Medical Plan Six-month follow-up Patient Instructions: Imaging studies, laboratory and physical exam results were discussed and reviewed in detail. No major barriers to patient understanding were identified. An opportunity to ask questions regarding the treatment plan was provided. All questions were answered. The patient expressed understanding and agreement with the above treatment plan. The patient is aware they should contact our office by phone for worsening of their current condition or the appearance of new urologic symptoms. Compliance is encouraged with any medications and followup testing that is ordered. It is a privilege to participate in the urologic care of your patient. If you have any questions or concerns regarding treatment for the above conditions, or other urologic issues, please do not hesitate to contact me. The office telephone contact is [phone]. This note is constructed using voice recognition software. While every effort has been made to ensure accuracy chief petroleum engineer errors may have been included. Yours sincerely, Dr Yuniel Rosario MD, [facility] - Urology Providers of Expert, Compassionate Care for the Genitourinary System Coding Level of Care Code Est Pt Level 3 (04639) Diagnoses Epididymitis N45.1
== END 2024-02-11 14:49 | disposition home or self-care (01) ==
PROVIDERS: PCP Physician Assistant; Visit Provider Urology
DX: N45.1 Epididymitis (principal)
CPT/HCPCS: 99024

== ENCOUNTER → 2024-02-11 14:18 | Outpatient (BNVA) | payer OTHER, SELFPAY | PROVIDERS: PCP Physician Assistant; Visit Provider Urology | DX: N45.1 Epididymitis (principal) | CPT/HCPCS: 99212 ==

== ENCOUNTER 2024-03-16 15:18 | Outpatient (AMB) | payer OTHER, SELFPAY ==
--- NOTE | 2024-03-16 15:27 | A.OFFVIS_ITS ---
Intake Visit Reasons: Epididymectomy- follow up Intake Note: Patient is present for EPIDIDYMECTOMY F/U Urology Medication:NONE Antibiotic Allergy:NONE Blood Thinner:NONE Lead Manufacturing Engineer Required: No Allergies fish oil Allergy (Severe, Verified 03/16/24 15:28) Hives diphenhydramine [From Benadryl] Allergy (Verified 03/16/24 15:28) Anaphylaxis SEAFOOD Allergy (Severe, Uncoded 03/16/24 15:28) HIVES,SWELLING THROAT HPI Comments Details: Juan C is a pleasant 47-year-old male. He is a patient of Dr. Good. 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 This lesion is considered to represent a benign reactive fibrous proliferation in response to a previous infection or trauma Cystitis Seen on imaging Persistent microscopic hematuria Low-dose Bactrim PFSH Medical History GERD (gastroesophageal reflux disease) Smoker Surgical History Hx of endoscopy History of colonoscopy Hx of cholecystectomy H/O knee surgery History of appendectomy History of hand surgery History of laparoscopic cholecystectomy (~11/2019) Family History Mother Hepatitis C Hypertension Diabetes Father Hepatitis C Hypertension Cancer Paternal Grandfather History of prostate cancer Hypertension Sister Diabetes Maternal Aunt Brain cancer Paternal Uncle History of prostate cancer Social History Housing: House Are you a primary medicare compliance auditor to a significant other at home: No Do you presently have visiting nurse or other home services: No Alcohol intake: never Patient Tobacco Use Status: Current everyday Tobacco user Tobacco use type: Cigarette Cigarettes Per Day: 6 e-Cigarette/Vaping Use: Never Used Substance Use Type: Marijuana service: No Current occupational status: unemployed 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 Cognitive needs: No Hearing needs: No Vision needs: No Review of Systems Const Denies chills and Denies fever(s) Card Reports no additional complaints and Denies syncope Resp Denies cough GI Denies abdominal pain and Denies heartburn Reports as per HPI and Denies change in libido Neuro Denies syncope Psych Denies change in libido Endo Denies change in libido Physical Exam Const General: cooperative, healthy appearing, comfortable and no acute distress Orientation/consciousness: patient oriented x3 HEENT Face and sinus: Yes normal facial exam Mouth: moist mucous membranes Neck Neck: Yes normal visual inspection, Yes full ROM and Yes trachea midline Chest Chest palpation & inspection: normal inspection of the chest Resp Effort & Inspection: normal respiratory effort, able to speak in complete sentences and no respiratory distress GI Inspection: Yes normal to inspection Back/Spine/Pelvis Cervical Spine: normal cervical lordosis Thoracic/Lumbar Spine: thoracic and lumbar spine normal to inspection Skin General skin exam: no rashes or lesions noted Neuro General: patient oriented x3, gait normal, tone normal and moves all extremities Extrem General: Yes normal to inspection and Yes capillary refill normal Assessment & Plan Assessment & Plan (1) Testicular pain: Code(s): N50.819 - Testicular pain, unspecified Category: Medical Qualifiers: Laterality: left Qualified Code(s): N50.812 - Left testicular pain (2) Microscopic hematuria: Code(s): R31.29 - Other microscopic hematuria Category: Medical (3) Cystitis: Code(s): N30.90 - Cystitis, unspecified without hematuria Category: Medical Plan Office cystoscopy Patient Instructions: Imaging studies, laboratory and physical exam results were discussed and reviewed in detail. No major barriers to patient understanding were identified. An opportunity to ask questions regarding the treatment plan was provided. All questions were answered. The patient expressed understanding and agreement with the above treatment plan. The patient is aware they should contact our office by phone for worsening of their current condition or the appearance of new urologic symptoms. Compliance is encouraged with any medications and followup testing that is ordered. It is a privilege to participate in the urologic care of your patient. If you have any questions or concerns regarding treatment for the above conditions, or other urologic issues, please do not hesitate to contact me. The office telephone contact is [phone]. This note is constructed using voice recognition software. While every effort has been made to ensure accuracy master barber errors may have been included. Yours sincerely, Dr Yuniel Rosario MD, [facility] - Urology Providers of Expert, Compassionate Care for the Genitourinary System Coding Level of Care Code Est Pt Level 3 (43158) Diagnoses Pain in left testicle N50.812 Laterality: left Microscopic hematuria R31.29 Cystitis N30.90
== END 2024-03-16 16:05 | disposition home or self-care (01) ==
PROVIDERS: PCP Physician Assistant; Visit Provider Urology
DX: N50.812 Left testicular pain (principal); R31.29 Other microscopic hematuria; N30.90 Cystitis, unspecified without hematuria
CPT/HCPCS: 99024

== ENCOUNTER → 2024-03-16 15:18 | Outpatient (BNVA) | payer OTHER, SELFPAY | PROVIDERS: PCP Physician Assistant; Visit Provider Urology | DX: N50.812 Left testicular pain (principal); N30.90 Cystitis, unspecified without hematuria; R31.29 Other microscopic hematuria | CPT/HCPCS: 99212 ==

== ENCOUNTER 2024-06-18 15:52 | Emergency (ER) | payer OTHER, SELFPAY ==
[2024-06-18 16:35] VITALS: BP 114/72; PULSE 66; RESP 16; TEMP 36.9; O2SAT 98; BMI 28.1
--- NOTE | 2024-06-18 16:36 | ED_ITS ---
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 does have history of GERD status post cholecystectomy and appendectomy comes here for diffuse abdominal pain for last 2 weeks feeling for burning sensation in epigastric area and watery stool mixed with bright red blood patient is status post hemorrhoids surgery in the past, been to [facility] and [facility] had a CT scan done which was negative on omeprazole 40 mg daily and sucralfate patient denied any vomiting no fever no chills Related Data Previous Rx's ?Medication ?Instructions ?Recorded clotrimazole-betamethasone 1 1 appl topical BID 30 days #45 10/23/23 %-0.05 % topical cream grams fexofenadine 180 mg tablet 180 mg PO DAILY 90 days #90 tabs 10/23/23 (Kim Allergy) sulfamethoxazole 400 1 tab PO BEDTIME 90 days #90 tabs 12/30/23 mg-trimethoprim 80 mg tablet (Bactrim) naproxen 500 mg tablet 500 mg PO BID PRN pain 7 days #14 01/05/24 tabs oxycodone 10 mg tablet 10 mg PO Q8H PRN pain 7 days #20 01/07/24 tabs hydromorphone 4 mg tablet 4 mg PO Q6H PRN pain 7 days #20 01/09/24 (Dilaudid) tabs albuterol sulfate 90 mcg/actuation 2 puff inhalation Q4-6H PRN 01/28/24 aerosol inhaler (Ventolin HFA) shortness of breath or wheezing 30 days #8.5 grams famotidine 40 mg tablet 40 mg PO BEDTIME 90 days #90 tabs 01/28/24 fluticasone propionate 50 2 spray intranasal DAILY #32 mL 04/18/24 mcg/actuation nasal spray,suspension Allergies Allergy/AdvReac Type Severity Reaction Status Date / Time fish oil Allergy Severe Hives Verified 06/18/24 16:36 diphenhydramine Allergy Anaphylaxis Verified 06/18/24 16:36 [From Fariha] SEAFOOD Allergy Severe HIVES,SWELLING Uncoded 06/18/24 16:36 THROAT Review of Systems Review of Systems Yes all other systems are reviewed and are negative [facility] Past Medical History Medical History GERD (gastroesophageal reflux disease) Smoker Surgical History Hx of endoscopy History of colonoscopy Hx of cholecystectomy H/O knee surgery History of appendectomy History of hand surgery History of laparoscopic cholecystectomy (~11/2019) Family History Family History Mother Hepatitis C Hypertension Diabetes Father Hepatitis C Hypertension Cancer Paternal Grandfather History of prostate cancer Hypertension Sister Diabetes Maternal Aunt Brain cancer Paternal Uncle History of prostate cancer Social History Social History Housing: House Are you a primary home health care case manager to a significant other at home: No Do you presently have visiting nurse or other home services: No Alcohol intake: never Patient Tobacco Use Status: Current everyday Tobacco user Tobacco use type: Cigarette Cigarettes Per Day: 6 e-Cigarette/Vaping Use: Never Used Substance Use Type: Marijuana Advance Directives: No Advance Directives Information Provided: No service: No Current occupational status: unemployed 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 Oriented X3. No acute distress. Eyes: PERRLA, No Nystagmus ENT: Pharynx normal. Oral Mucosa moist Neck: Normal inspection. Neck supple. CVS: Normal heart rate and rhythm. Pulses normal. Respiratory: No respiratory distress. Equal air entry bilateral, no wheezing/rales/rhonchi Abdomen: Soft and mild tenderness in epigastric and lower abdomen area no rebound tenderness or guarding. Bowel sounds are present, no mass palpable, no CVA tenderness rectal: Patient has refused rectal exam Skin: Skin warm and dry. Normal skin color. Normal skin turgor. Extremities: No lower extremity edema. No calf tenderness Neuro: Oriented X 3. No motor deficit. No sensory deficit.No cerebellar signs , cranial nerves II-XII intact Course Course Course Narrative: This is a Rapid Medical Exam performed in triage by Karley Maria PA-C. Full HPI, ROS and PE to be performed by primary ED provider. 48 yo M w/pmhx Chron's, JAKI, presenting to the ED c/o lungs hurt, back pain, L sided abdominal pain, intermittent bright red bloody stool, N/V/D x1 week. states has been seen at multiple hospitals ([facility] & [facility]) for the same. Has been noncompliant with meds including Humira since going to shelter x2yrs PE: Abdomen is soft diffusely tender Plan: labs, UA Medical Decision Making Medical Decision Making [facility] Narrative: Patient with diffuse abdominal discomfort with history of Crohn disease not on any medication used to be on Humira in the past comes here with abdominal discomfort with bright red blood off and on with watery diarrhea patient will be seen class b truck driver in 08/22 will start patient on prednisone advised to increase the dose of omeprazole twice a day continue sucralfate likely patient has Crohn disease flare-up Patient's CRP level is <0.10 unlikely Crohn disease flare-up patient advised to continue sucralfate and Prilosec patient has refused rectal exam H&H is stable Differential Diagnosis Differential Diagnoses: The differential diagnosis associated with the presentation includes Crohn disease flare-up/hemorrhoids/enteritis/GERD Lab Data [facility] Lab Attestation statement: I reviewed the patient's lab results. 06/18/24 18:47 06/18/24 18:47 Labs: Lab Results 06/18/24 Range/Units 18:47 WBC 12.8 H (4.8-10.8) X10*3/uL RBC 5.35 (4.60-5.80) X10*6/uL Hgb 17.2 (14.0-18.0) g/dl Hct 48.0 (42.0-52.0) % MCV 89.7 (80.0-98.0) fL MCH 32.1 (27.0-33.0) pg MCHC 35.8 (31.0-36.0) g/dl RDW 12.4 (11.0-16.0) % Plt Count 337 (160-400) X10*3/uL MPV 9.9 (9.4-12.4) fL Immature Gran % (Auto) 0.3 (0.0-0.4) % Neut % (Auto) 61.1 (45-73) % Lymph % (Auto) 29.2 (20-40) % Mclean % (Auto) 8.1 (2-11) % Eos % (Auto) 1.0 (0-4) % Baso % (Auto) 0.3 (0-2) % Lymph # (Auto) 3.7 (1.2-4.9) X10*3/uL Mclean # (Auto) 1.0 (0.1-1.2) X10*3/uL Eos # (Auto) 0.1 (0.0-0.4) X10*3/uL Baso # (Auto) 0.0 (0.0-0.2) X10*3/uL Abs Immat Gran (auto) 0.04 H (0.00-0.03) X10*3/uL Absolute Neuts (auto) 7.8 (2.0-8.3) x10*3/uL Absolute Nucleated RBC 0.000 (0.0-0.012) X10*3/uL Nucleated RBC % (auto) 0.0 (0.0-0.2) /100WBC Sodium 141 (135-145) mmol/L Potassium 4.4 (3.3-5.1) mmol/L Chloride 106 (96-108) mmol/L Carbon Dioxide 27 (22-29) mmol/L Anion Gap 12 (12-20) BUN 7 L (9-16) mg/dL Creatinine 0.82 (0.5-1.4) mg/dL Estim Creat Clear Calc 115.8 Estimated GFR > 60 Random Glucose 101 (60-115) mg/dL Calcium 9.5 (8.4-10.2) mg/dL Magnesium 2.1 (1.6-2.6) mg/dL Total Bilirubin 0.6 (0.0-1.0) mg/dL Direct Bilirubin 0.2 (0.0-0.5) mg/dL AST 22 (5-37) U/L ALT 23 (0-40) U/L Alkaline Phosphatase 69 (39-117) U/L C-Reactive Protein < 0.10 (< or = 0.50) mg/dL Total Protein 7.9 (6.5-8.0) g/dL Albumin 4.4 (3.5-5.0) g/dL Lipase 28 (8-78) U/L Urine Color Yellow Urine Appearance Clear Urine pH 6.0 (5.0-9.0) Ur Specific [place] 1.025 (1.005-1.025) Urine Protein Negative (Neg-Trace) mg/dL Urine Glucose (UA) Negative (Negative) mg/dL Urine Ketones Trace (Negative) mg/dL Urine Blood Negative (Negative) Urine Nitrite Negative (Negative) Ur Leukocyte Esterase Negative (Negative) Medications Administered Discontinued Medications Generic Name Dose Route Start Last Admin Trade Name Freq PRN Reason Stop Dose Admin Al Hydroxide/Mg Hydroxide 30 ml 06/18/24 23:09 06/18/24 23:19 Magnesium Hydrox/Alum Hydrox 30 Ml Oral.Susp PO 06/18/24 23:10 30 ml ONCE ONE Administration Lidocaine HCl 15 ml 06/18/24 23:09 06/18/24 23:19 Lidocaine Hcl Viscous 2 % 15 Ml Solution MUCOUS MEM 06/18/24 23:10 15 ml ONCE ONE Administration Prednisone 60 mg 06/18/24 23:09 06/18/24 23:19 Prednisone 20 Mg Tablet PO 06/18/24 23:10 60 mg ONCE ONE Administration Discharge Plan Discharge Clinical Impression: Abdominal pain, Blood per rectum Patient Disposition: Home, Self-Care Instructions: Rectal Bleeding (ED), Chronic Abdominal Pain (ED) Additional Instructions: Continue omeprazole Follow up with your class b truck driver for further manage Prescriptions: No Action oxycodone 10 mg tablet 10 mg PO Q8H PRN (Reason: pain) 7 Days Qty: 20 0RF Rx Instructions: Partial Fill upon patient request. fluticasone propionate 50 mcg/actuation spray,suspension 2 spray intranasal DAILY Qty: 32 0RF naproxen 500 mg tablet 500 mg PO BID PRN (Reason: pain) 7 Days Qty: 14 0RF fexofenadine [Kim Allergy] 180 mg tablet 180 mg PO DAILY 90 Days Qty: 90 1RF clotrimazole-betamethasone 1-0.05 % cream 1 appl topical BID 30 Days Qty: 45 0RF sulfamethoxazole-trimethoprim [Bactrim] 400-80 mg tablet 1 tab PO BEDTIME 90 Days Qty: 90 0RF famotidine 40 mg tablet 40 mg PO BEDTIME 90 Days Qty: 90 1RF albuterol sulfate [Ventolin HFA] 90 mcg/actuation HFA aerosol inhaler 2 puff inhalation Q4-6H PRN (Reason: shortness of breath or wheezing) 30 Days Qty: 8.5 3RF hydromorphone [Dilaudid] 4 mg tablet 4 mg PO Q6H PRN (Reason: pain) 7 Days Qty: 20 0RF Rx Instructions: Partial Fill upon patient request. Has testicular segmental infarct and failed oxycodone. Print Language: Maltese
[2024-06-18 18:51] LABS: MANUAL DIFF FLAG NO
[2024-06-18 18:54] LABS: Basophils Percent Auto 0.3 % (0-2); Eosinophils Absolute Auto 0.1 X10*3/uL (0.0-0.4); Hemoglobin 17.2 g/dl (14.0-18.0); Imm Gran Abs Auto 0.04 X10*3/uL (0.00-0.03); Imm Gran Pct Auto 0.3 % (0.0-0.4); Lymphocytes Absolute Auto 3.7 X10*3/uL (1.2-4.9); Lymphocytes Percent Auto 29.2 % (20-40); Mean Corpuscular HGB Conc 35.8 g/dl (31.0-36.0); Mean Corpuscular Hemoglobin 32.1 pg (27.0-33.0); Mean Corpuscular Volume 89.7 fL (80.0-98.0); Mean Platelet Volume 9.9 fL (9.4-12.4); Monocytes Percent Auto 8.1 % (2-11); Neutrophils Absolute Auto 7.8 x10*3/uL (2.0-8.3); Neutrophils Percent Auto 61.1 % (45-73); Platelet Count 337 X10*3/uL (160-400); Red Blood Count 5.35 X10*6/uL (4.60-5.80); Red Cell Distribution Width 12.4 % (11.0-16.0); White Blood Count 12.8 X10*3/uL (4.8-10.8)
[2024-06-18 19:00] LABS: Appearance Urine Clear; Color Urine Yellow; Glucose Urine UA Negative (Negative); Leukocyte Esterase Urine Negative (Negative); Nitrite Urine Negative (Negative); Specific Gravity - Urine 1.025 (1.005-1.025); Urine Blood Negative (Negative); Urine Ketones Trace mg/dL (Negative); Urine Protein Negative (Neg-Trace)
[2024-06-18 19:06] LABS: Alanine Aminotransferase 23 U/L (0-40); Albumin Level 4.4 g/dL (3.5-5.0); Alkaline Phosphatase 69 U/L (39-117); Anion Gap 12 (12-20); Aspartate Amino Transferase 22 U/L (5-37); Bilirubin Direct 0.2 mg/dL (0.0-0.5); Bilirubin Total 0.6 mg/dL (0.0-1.0); Blood Urea Nitrogen 7 mg/dL (9-16); Calcium 9.5 mg/dL (8.4-10.2); Carbon Dioxide 27 mmol/L (22-29); Chloride 106 mmol/L (96-108); Creatinine Clr Calc Pharmacy 115.8; Estimated Glomerular Filt Rate > 60; Glucose Random 101 mg/dL (60-115); Lipase 28 U/L (8-78); Magnesium 2.1 mg/dL (1.6-2.6); Potassium 4.4 mmol/L (3.3-5.1); Sodium 141 mmol/L (135-145); Total Protein 7.9 g/dL (6.5-8.0)
[2024-06-18] MEDS: predniSONE 20 MG TABLET 60 MG PO (23:19)
[2024-06-18] MEDS: Magnesium Hydrox/Alum Hydrox 30 ML ORAL.SUSP PO (23:19)
[2024-06-18] MEDS: Lidocaine HCl Viscous 2 % 15 ML SOLUTION MUCOUS MEM (23:19)
[2024-06-18 23:22] LABS: C Reactive Protein < 0.10 mg/dL (< or = 0.50)
--- NOTE | 2024-06-18 23:57 | PC.NURSE ---
pt refused rectal exam
--- NOTE | 2024-06-18 23:58 | PC.NURSE ---
pt refusing assessment
[2024-06-19 00:04] VITALS: BP 113/83; PULSE 72; RESP 19; TEMP 36.7; O2SAT 96
== END 2024-06-19 00:11 | disposition home or self-care (01) ==
PROVIDERS: Physician Assistant; Emergency Provider Internal Medicine
DX: R10.13 Epigastric pain (principal); K92.1 Melena; M54.50 Low back pain, unspecified; F17.210 Nicotine dependence, cigarettes, uncomplicated; Z79.899 Other long term (current) drug therapy; Z91.148 Patient's other noncompliance with medication regimen for other reason
CPT/HCPCS: 36415; 80048; 80076; 81003; 83690; 83735; 85025; 86140; 99282; 99283

== ENCOUNTER 2024-07-09 13:04 | Outpatient (AMB) | payer OTHER, SELFPAY ==
--- NOTE | 2024-07-09 13:06 | MHC.OFFVIS ---
Intake Visit Reasons: Cystoscopy Intake Note: Patient is present for Cystoscopy Urology Medication:none Antibiotic Allergy:none Blood Thinner:none Lot:[id number] Exp: Golf Cart Attendant Required: No Allergies fish oil Allergy (Severe, Verified 07/09/24 13:07) Hives diphenhydramine [From Benadryl] Allergy (Verified 07/09/24 13:07) Anaphylaxis SEAFOOD Allergy (Severe, Uncoded 07/09/24 13:07) HIVES,SWELLING THROAT HPI Comments Details: Juan C is a pleasant 47-year-old male. He is a patient of Dr. Good. 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 This lesion is considered to represent a benign reactive fibrous proliferation in response to a previous infection or trauma Cystitis Seen on imaging Persistent microscopic hematuria Low-dose Bactrim PFSH Medical History GERD (gastroesophageal reflux disease) Smoker Surgical History Hx of endoscopy History of colonoscopy Hx of cholecystectomy H/O knee surgery History of appendectomy History of hand surgery History of laparoscopic cholecystectomy (~11/2019) Family History Mother Hepatitis C Hypertension Diabetes Father Hepatitis C Hypertension Cancer Paternal Grandfather History of prostate cancer Hypertension Sister Diabetes Maternal Aunt Brain cancer Paternal Uncle History of prostate cancer Social History Housing: House Are you a primary congregational care pastor to a significant other at home: No Do you presently have visiting nurse or other home services: No Alcohol intake: never Patient Tobacco Use Status: Current everyday Tobacco user Tobacco use type: Cigarette Cigarettes Per Day: 6 e-Cigarette/Vaping Use: Never Used Substance Use Type: Marijuana service: No Current occupational status: unemployed 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 Cognitive needs: No Hearing needs: No Vision needs: No Review of Systems Const Denies chills and Denies fever(s) Card Reports no additional complaints and Denies syncope Resp Denies cough GI Denies abdominal pain and Denies heartburn Reports as per HPI and Denies change in libido Neuro Denies syncope Psych Denies change in libido Endo Denies change in libido Physical Exam Const General: cooperative, healthy appearing, comfortable and no acute distress Orientation/consciousness: patient oriented x3 HEENT Face and sinus: Yes normal facial exam Mouth: moist mucous membranes Neck Neck: Yes normal visual inspection, Yes full ROM and Yes trachea midline Chest Chest palpation & inspection: normal inspection of the chest Resp Effort & Inspection: normal respiratory effort, able to speak in complete sentences and no respiratory distress GI Inspection: Yes normal to inspection Back/Spine/Pelvis Cervical Spine: normal cervical lordosis Thoracic/Lumbar Spine: thoracic and lumbar spine normal to inspection Skin General skin exam: no rashes or lesions noted Neuro General: patient oriented x3, gait normal, tone normal and moves all extremities Extrem General: Yes normal to inspection and Yes capillary refill normal Office Procedures Cystoscopy Consent Discussed risk and benefit or proposed procedure with the patient. Information consent for procedure given to the patient. Discussed technical aspects, risks, benefits and alternatives in full. Addressed all of the patient's questions and concerns regarding the procedure. The patient demonstrated knowledge and understanding. They wish to proceed with this procedure. Preparation The patient was prepped in the usual manner. A early childhood education specialist was present and in the room. Genitalia was prepped with betadine solution in a sterile manner. Lidocaine Jelly 2% was placed into the urethra and 16Fr flexible Olympus cystoscope was inserted into the meatus after adequate lubrication. Procedure Cystoscopy performed using a disposable Urovue digital 16 Setswana cystoscope. Meatus and circumcised Urethra anterior and posterior urethra normal Prostatic Urethra unremarkable Bladder examination with retroflexion of cystoscope Bladder Orifices normal shape and position Bladder Capacity median Trabeculations grade 1 Cellule Formation - Diverticulum Formation - Mucosal Erythema - Bladder Tumor - [id number] DISPOSABLE SCOPE URO-G FLEXIBLE SCOPE Procedure code (CPT) selection complete Office Meds lidocaine HCl 2 % mucosal jelly in applicator Performing Provider: Yuniel Rosario MD [facility] Administered by: Aayush Addison LPN on 07/09/24 13:28 Dose Route Admin Location Dispensed Lot Number Expiration Date NDC Hemodialysis Rn 10 mL intra-urethral 10 mL nitrofurantoin monohydrate/macrocrystals 100 mg capsule Performing Provider: Yuniel Rosario MD Performing Location[facility] Administered by: Aayush Addison LPN on 07/09/24 13:28 Dose Route Admin Location Dispensed Lot Number Expiration Date NDC Hemodialysis Rn 100 mg PO 1 cap Results AMB Urinalysis, Automated UA Leukoctes 0 Bridger/uL Last Edit by LUCIA Villanueva on 07/09/24 13:25 UA Nitrite Negative Last Edit by LUCIA Villanueva on 07/09/24 13:25 UA Urobilinogen 0.2 mg/dL Last Edit by LUCIA Villanueva on 07/09/24 13:25 UA Protein 15 mg/dL Last Edit by LUCIA Villanueva on 07/09/24 13:25 UA pH 6.0 Last Edit by LUCIA Villanueva on 07/09/24 13:25 UA Blood 25 Dk/uL Last Edit by LUCIA Villanueva on 07/09/24 13:25 UA Specific [place] 1.025 Last Edit by LUCIA Villanueva on 07/09/24 13:25 UA Ketone Negative Last Edit by LUCIA Villanueva on 07/09/24 13:25 UA Bilirubin 0 mg/dL Last Edit by LUCIA Villanueva on 07/09/24 13:25 UA Glucose 0 mg/dL Last Edit by LUCIA Villanueva on 07/09/24 13:25 Results Reviewed Results Reviewed: Laboratory Last Values Urine pH (Auto) 6.0 07/09/24 13:25 Specific [place] (Auto) 1.025 07/09/24 13:25 Urine Protein (Auto) 15 mg/dL 07/09/24 13:25 Glucose (UA)(Auto) 0 mg/dL 07/09/24 13:25 Urine Ketones (Auto) Negative 07/09/24 13:25 Urine Blood (Auto) 25 Dk/uL 07/09/24 13:25 Urine Nitrite (Auto) Negative 07/09/24 13:25 Urine Bilirubin (Auto) 0 mg/dL 07/09/24 13:25 Urine Urobilinogen (Auto) 0.2 mg/dL 07/09/24 13:25 Leukocyte Esterase (Auto) 0 Bridger/uL 07/09/24 13:25 Assessment & Plan Assessment & Plan (1) Microscopic hematuria: Code(s): R31.29 - Other microscopic hematuria Category: Medical (2) Cystitis: Code(s): N30.90 - Cystitis, unspecified without hematuria Category: Medical Plan Trial alfuzosin Six-month follow-up Orders: Orders AMB Urinalysis Automated Today Z13.9 - Encounter for screening, unspecified AMB Cystoscopy Today N30.90 - Cystitis, unspecified without hematuria, R31.29 - Other microscopic hematuria, R33.9 - Retention of urine, unspecified Medications: New alfuzosin ER Take before bedtime 10 mg PO BEDTIME 90 days 90 tabs 1RF N30.90 - Cystitis, unspecified without hematuria, R39.12 - Poor urinary stream Patient Instructions: This note is constructed using voice recognition software. While every effort has been made to ensure accuracy marketing underwriter errors may have been included. Imaging studies, laboratory and physical exam results were discussed and reviewed in detail. No major barriers to patient understanding were identified. An opportunity to ask questions regarding the treatment plan was provided. All questions were answered. The patient expressed understanding and agreement with the above treatment plan. The patient is aware they should contact our office by phone for worsening of their current condition or the appearance of new urologic symptoms. Compliance is encouraged with any medications and followup testing that is ordered. It is a privilege to participate in the urologic care of your patient. If you have any questions or concerns regarding treatment for the above conditions, or other urologic issues, please do not hesitate to contact me. The office telephone contact is [phone]. Sincerely, Dr Yuniel Rosario MD, [facility] - Urology Compassionate Specialist Care for the Genitourinary System Coding Level of Care Code Est Pt Level 4 (26487) Diagnoses Microscopic hematuria R31.29 Cystitis N30.90 CPT Codes Cystoscopy - CPT: 71081-[id number] ([id number])
--- OUTSIDE RECORDS SUMMARY | 2024-07-09 13:34 | XMS_ITS | Clinical Summary ---
Author Organization [facility] Address [address] [place] [address] Phone Care Team Providers Care Insulation Professional Name Role Phone Physician, No Pcp Primary Care Provider Unavaila ble Allergies Active Allergy Reactions Criticality Noted Date Comments Diphenhydramine Hcl Hives 06/06/2024 [place] Oil Hives 06/06/2024 Medications omeprazole (PriLOSEC) [address] capsule Take 1 capsule (20 mg total) by mouth 1 (one) time each day. Do not crush or chew. 30 each 06/07/2024 07/08/19 25 Encounters Date Type Department Care Team Description 06/06/2024 7:58 PM EDT - 06/07/2024 1:24 AM EDT Emergency [facility] Emergency [address] [place] [address] Acute gastritis without hemorrhage, unspecified gastritis type (Primary Dx) Discharge Disposition: Home or Self Care from Last 3 Months Surgical History Surgery Date Site/Laterality Comments APPENDECTOMY CHOLECYSTECTOMY HERNIA REPAIR Medical History Medical History Date Comments Crohn's colitis (CMS/[facility] V24, CMS/[facility] V28) Social History Tobacco Use Types Packs/Day Years Used Date Smoking Tobacco: Never Assessed Sex and Gender Information Value Date Recorded Sex Assigned at Male 06/06/2024 9:48 PM EDT Legal Sex Male 11:29 PM EST Gender Identity Male 06/06/2024 9:48 PM EDT Sexual Orientation Straight 06/06/2024 9: 48 PM EDT Obstetrics History Last Filed Vital Signs Vital Sign Reading Time Taken Comments Blood Pressure 138/94 06/07/2024 12:14 AM EDT Pulse 66 06/07/2024 12:14 AM EDT Temperature 37.1 ??C (98.8 ??F) 06/07/2024 12:14 AM E DT Respiratory Rate 16 06/07/2024 12:14 AM EDT Oxygen Saturation 95% 06/07/2024 12:14 AM EDT Inhaled Oxygen Concentration - - Weight 80.7 kg (178 lb) 06/06/2024 4:44 PM EDT Height 170.2 cm (5' 7 ) 06/06/2024 4:44 PM EDT Body Mass Index 27.88 06/06/2024 4:44 PM EDT Plan of Treatment Health Maintenance Due Date Last Done Comments Hepatitis B Vaccines (1 of 3 - 19+ 3-dose series) 1996 COVID-19 Vaccine (2023-2 5 season) 2023 Cholesterol Screening (Lipid Panel) 06/06/2024 Colorectal Cancer Screening: Colonoscopy 06/06/2024 Depression Screening 06/06/2024 HIV Screening 06/06/2024 Hepatitis C Screening 06/06/2024 Social Influencers of Health Screening 06/06/2024 Influenza Vaccine (Season Ended) 2024 DTaP,Tdap,and Td Vaccines (3 - Td or Tdap) 09/14/2025 09/15/2015, 11/18/2011 Pneumococcal Vaccine: Pediatrics (0 to 5 Years) and At-Risk Patients (6 to 64 Years) Aged Out 10/26/2015 No longer eligible b ased on patient's age to complete this topic HIB Vaccines Aged Out No longer eligi ble based on patient's age to complete this topic HPV Vaccines Aged Out No longer eligi ble based on patient's age to complete this topic Hepatitis A Vaccines Aged Out No long er eligible based on patient's age to complete this topic IPV Vaccines Aged Out No longer eligi ble based on patient's age to complete this topic MMR Vaccines Aged Out No longer eligi ble based on patient's age to complete this topic Meningococcal ACWY Vaccine Aged Out N o longer eligible based on patient's age to complete this topic Meningococcal B Vaccine Aged Out No l onger eligible based on patient's age to complete this topic RSV Immunization Patients Under 20 months Aged Out No longer eligible b ased on patient's age to complete this topic Varicella Vaccines Aged Out No longer eligible based on patient's age to complete this topic Procedures Procedure Name Priority Date/Time Associated Diagnosis Comments CT ABDOMEN PELVIS W CONTRAST STAT 06/06/2024 9:32 PM EDT HERNANDEZ URINE CULTURE TUBE STAT 06/06/2024 4:55 PM EDT URINALYSIS WITH REFLEX MICROSCOPIC AND CULTURE STAT 06/06/2024 4:55 PM EDT URINALYSIS WITH REFLEX MICROSCOPIC AND CULTURE STAT 06/06/2024 4:55 PM EDT CULTURE URINE STAT 06/06/2024 4:55 PM EDT CBC WITH AUTO DIFFERENTIAL STAT 06/06/2024 4:52 PM EDT LIPASE STAT 06/06/2024 4:52 PM EDT COMPREHENSIVE METABOLIC PANEL STAT 06/06/2024 4:52 PM EDT CBC AND DIFFERENTIAL STAT 06/06/2024 4:52 PM EDT from Last 3 Months Results * CT Abdomen Pelvis w Contrast (06/06/2024 9:32 PM EDT) Anatomical Region Laterality Modality Body Computed Tomogra phy 06/06/2024 10:3 9 PM EDT Impressions 06/06/2024 10:39 PM EDT No acute findings. This document has been electronically signed by: Viraj Dowd MD on 06/06/2024 22:39:51 Narrative 06/06/2024 10:39 PM EDT INDICATION: Diverticulitis suspected CT abdomen and pelvis with contrast Comparison: None Findings: No consolidation or effusion. The gallbladder is surgically absent. The liver, kidneys, spleen, adrenals and pancreas are normal. No bowel obstruction, pneumoperitoneum, or pneumatosis. Sigmoid diverticulosis. The bones are intact. Procedure Note Viraj Dowd MD - 06/06/2024 INDICATION: Diverticulitis suspected CT abdomen and pelvis with contrast Comparison: None Findings: No consolidation or effusion. The gallbladder is surgically absent. The liver, kidneys, spleen, adrenals and pancreas are normal. No bowel obstruction, pneumoperitoneum, or pneumatosis. Sigmoid diverticulosis. The bones are intact. IMPRESSION: No acute findings. This document has been electronically signed by: Viraj Dowd MD on 06/06/2024 22:39:51 Cornelius [facility] CT PROCEDURES Final Result * (ABNORMAL) Urinalysis with reflex microscopic and culture (06/06/2024 4:55 PM EDT) Specific [place] Urine 1.034(H) 1.003 - 1.030 LAB URINALYSIS - AUTOMATED METHOD 06/06/2024 6:11 PM [facility] pH, Urine 5.5 5.0 - 8.0 pH LAB URINALYSIS - AUTOMATED METHOD 06/06/2024 6:11 PM [facility] Leukocytes, Urine Trace(A) Negative LAB URINALYSIS - AUTOMATED METHOD 06/06/2024 6:11 PM [facility] Nitrite, Urine Negative Negative LAB URINALYSIS - AUTOMATED METHOD 06/06/2024 6:11 PM [facility] Protein, Urine Trace <=Trace mg/dL LAB URINALYSIS - AUTOMATED METHOD 06/06/2024 6:11 PM [facility] Glucose, Urine Negative Negative mg/dL LAB URINALYSIS - AUTOMATED METHOD 06/06/2024 6:11 PM [facility] Ketones, Urine Trace(A) Negative mg/dL LAB URINALYSIS - AUTOMATED METHOD 06/06/2024 6:11 PM [facility] Urobilinogen , Urine 1.0 0.2 - 1.0 mg/dL LAB URINALYSIS - AUTOMATED METHOD 06/06/2024 6:11 PM [facility] Bilirubin, Urine Negative Negative LAB URINALYSIS - AUTOMATED METHOD 06/06/2024 6:11 PM EDT [facility] Blood, Urine Negative Negative LAB URINALYSIS - AUTOMATED METHOD 06/06/2024 6:11 PM EDT [facility] RBC, Urine 0 0 - 4 /HPF 06/06/2024 6:11 PM EDT [facility] WBC, Urine 5(H) 0 - 4 /HPF 06/06/2024 6:11 PM EDT [facility] Squamous Epithelial, Urine >100(H) 0 - 60 /LPF 06/06/2024 6:11 PM EDT [facility] Crystals, Urine Light Calcium Oxalate crystals. /LPF 06/06/2024 6:11 PM EDT [facility] Bacteria, Urine Moderate(A) Negative /HPF 06/06/2024 6:11 PM EDT [facility] Hyaline Casts, Urine 0 0 - 3 /LPF 06/06/2024 6:11 PM [facility] Mucus, Urine Large None /HPF 06/06/2024 6:11 PM EDT [facility] Urine Urine specimen obtained by clean catch procedure / Unknown Non-blood Collection / Unknown 06/06/2024 4:55 PM EDT 06/06/2024 5:01 PM EDT us Tasia Frances DO LAB URINE ORDERABLES Matilda l Result [facility] [address] [place] [address], * Hernandez urine culture tube (06/06/2024 4:55 PM EDT) Extra Tube Hold for add-ons. 06/06/2024 7:01 PM EDT [facility] Comment:Auto resulted. Urine Urine specimen obtained by clean catch procedure / Unknown Non-blood Collection / Unknown 06/06/2024 4:55 PM EDT 06/06/2024 5:01 PM EDT Tasia Frances LAB URINE ORDERABLES Matilda l Result Performing Organization Address City/[facility]/ZIP Co de Phone Number [facility] [address] [place] [address], [place] [phone] * Culture urine (06/06/2024 4:55 PM EDT) Pathologist [facility] Culture, Urine No growth 06/07/2024 1:29 PM EDT [facility] Urine Urine specimen obtained by clean catch procedure / Unknown Non-blood Collection / Unknown 06/06/2024 4:55 PM EDT 06/06/2024 6:11 PM EDT [facility] Eric Frances LAB MICROBIOLOGY - GENERA L ORDERABLES Final Result Performing Organization Address [facility]/ZIP Co de Phone Number [facility] [address] [place] [address], [place] [phone] * (ABNORMAL) CBC auto differential (06/06/2024 4:52 PM EDT) WBC 13.9(H) 4.8 - 10.8 K/[facility] LAB HEMETOLOGY METHOD 06/06/2024 5:07 PM EDT [facility] RBC 5.40 4.50 - 5.50 M/[facility] LAB HEMETOLOGY METHOD 06/06/2024 5:07 PM EDT [facility] Hemoglobin 17.5 13.5 - 17.5 g/dL LAB HEMETOLOGY METHOD 06/06/2024 5:07 PM EDT [facility] Hematocrit 49.9 42.0 - 54.0 % LAB HEMETOLOGY METHOD 06/06/2024 5:07 PM [facility] MCV 91.9 79.0 - 98.0 FL LAB HEMETOLOGY METHOD 06/06/2024 5:07 PM [facility] MCH 32.2(H) 27.0 - 32.0 pcg LAB HEMETOLOGY METHOD 06/06/2024 5:07 PM [facility] MCHC 35.1 32.0 - 37.0 g/dL LAB HEMETOLOGY METHOD 06/06/2024 5:07 PM [facility] RDW 12.7 11.0 - 15.0 % LAB HEMETOLOGY METHOD 06/06/2024 5:07 PM [facility] Platelets 331 130 - 400 K/mcL LAB HEMETOLOGY METHOD 06/06/2024 5:07 PM [facility] MPV 10.2 7.0 - 11.0 FL LAB HEMETOLOGY METHOD 06/06/2024 5:07 PM [facility] NRBC 0.0 <1.0 % LAB HEMETOLOGY METHOD 06/06/2024 5:07 PM [facility] NRBC Absolute 0.00 <0.10 K/mcL LAB HEMETOLOGY METHOD 06/06/2024 5:07 PM [facility] Neutrophils Relative 70.5 % LAB HEMETOLOGY METHOD 06/06/2024 5:07 PM [facility] Lymphocytes Relative 19.7 % LAB HEMETOLOGY METHOD 06/06/2024 5:07 PM [facility] Monocytes Relative 8.2 % LAB HEMETOLOGY METHOD 06/06/2024 5:07 PM [facility] Eosinophils Relative 0.7 % LAB HEMETOLOGY METHOD 06/06/2024 5:07 PM [facility] Basophils Relative 0.3 % LAB HEMETOLOGY METHOD 06/06/2024 5:07 PM EDT [facility] Immature Granulocytes Relative 0.6 % LAB HEMETOLOGY METHOD 06/06/2024 5:07 PM EDT [facility] Neutrophils Absolute 9.78(H) 1.50 - 7.00 K/mcL LAB HEMETOLOGY METHOD 06/06/2024 5:07 PM EDT [facility] Lymphocytes Absolute 2.74 1.00 - 5.00 K/mcL LAB HEMETOLOGY METHOD 06/06/2024 5:07 PM EDT [facility] Monocytes Absolute 1.14(H) 0.20 - 1.00 K/mcL LAB HEMETOLOGY METHOD 06/06/2024 5:07 PM EDT [facility] Eosinophils Absolute 0.10 0.00 - 0.50 K/mcL LAB HEMETOLOGY METHOD 06/06/2024 5:07 PM EDT [facility] Basophils Absolute 0.04 0.00 - 0.20 K/mcL LAB HEMETOLOGY METHOD 06/06/2024 5:07 PM EDT [facility] Immature Granulocytes Absolute 0.09(H) 0.00 - 0.03 K/mcL LAB HEMETOLOGY METHOD 06/06/2024 5:07 PM EDT [facility] Blood Venous blood specimen / Unknown Venipuncture / Unknown 06/06/2024 4:52 PM EDT 06/06/2024 5:02 PM EDT us Tasia Frances DO LAB BLOOD ORDERABLES Matilda l Result [facility] [address] [place] [address], * Lipase (06/06/2024 4:52 PM EDT) Lipase 40 13 - 75 unit/L LAB CHEMISTRY METHOD 06/06/2024 5:23 PM EDT [facility] Blood Venous blood specimen / Unknown Venipuncture / Unknown 06/06/2024 4:52 PM EDT 06/06/2024 5:02 PM EDT Tasia Frances DO LAB BLOOD ORDERABLES Matilda l Result [facility] [address] [place] [address], [place] [phone] * (ABNORMAL) Comprehensive metabolic panel (06/06/2024 4:52 PM EDT) Sodium 137 133 - 145 mmol/L LAB CHEMISTRY METHOD 06/06/2024 5:29 PM [facility] Potassium 4.6 3.5 - 5.5 mmol/L LAB CHEMISTRY METHOD 06/06/2024 5:29 PM [facility] Chloride 104 96 - 110 mmol/L LAB CHEMISTRY METHOD 06/06/2024 5:29 PM [facility] CO2 28 21 - 32 mmol/L LAB CHEMISTRY METHOD 06/06/2024 5:29 PM [facility] Anion Gap 5 3 - 11 LAB CHEMISTRY METHOD 06/06/2024 5:29 PM [facility] Glucose 106(H) 70 - 100 mg/dL LAB CHEMISTRY METHOD 06/06/2024 5:29 PM [facility] BUN 9 5 - 25 mg/dL LAB CHEMISTRY METHOD 06/06/2024 5:29 PM [facility] Creatinine 1.05 0.70 - 1.30 mg/dL LAB CHEMISTRY METHOD 06/06/2024 5:29 PM [facility] eGFR 89 >=60 mL/min/1. 73m2 LAB CHEMISTRY METHOD 06/06/2024 5:29 PM [facility] Comment:Calculation based on the??Chronic Kidney Disease Epidemiology Collaboration (CKD-EPI) equation refit??without adjustment for race. BUN/Creatinine Ratio 8.6 LAB CHEMISTRY METHOD 06/06/2024 5:29 PM EDT [facility] Calcium 9.7 8.5 - 10.5 mg/dL LAB CHEMISTRY METHOD 06/06/2024 5:29 PM [facility] AST (SGOT) 23 10 - 42 unit/L LAB CHEMISTRY METHOD 06/06/2024 5:29 PM T [facility] ALT (SGPT) 23 10 - 60 unit/L LAB CHEMISTRY METHOD 06/06/2024 5:29 PM [facility] Alkaline Phosphatase 75 42 - 121 unit/L LAB CHEMISTRY METHOD 06/06/2024 5:29 PM [facility] Total Protein 8.0 6.0 - 8.0 g/dL LAB CHEMISTRY METHOD 06/06/2024 5:29 PM EDT [facility] Albumin 4.3 3.2 - 5.0 g/dL LAB CHEMISTRY METHOD 06/06/2024 5:29 PM [facility] Total Bilirubin 0.7 0.0 - 1.4 mg/dL LAB CHEMISTRY METHOD 06/06/2024 5:29 PM [facility] Blood Venous blood specimen / Unknown Venipuncture / Unknown 06/06/2024 4:52 PM EDT 06/06/2024 5:02 PM EDT us Tasia Frances DO LAB BLOOD ORDERABLES Matilda l Result [facility] [address] [place] [address], from Last 3 Months Insurance [facility] [employer] Care Teams Insulation Professional Relationship Specialty Start Date End Date Physician, No Pcp PCP - General 06/06/24
== END 2024-07-09 13:39 | disposition home or self-care (01) ==
LOC: HO.HUSH 13:05
PROVIDERS: PCP Physician Assistant; Visit Provider Urology
DX: N30.90 Cystitis, unspecified without hematuria (principal); R31.29 Other microscopic hematuria; R33.9 Retention of urine, unspecified; Z13.9 Encounter for screening, unspecified
CPT/HCPCS: 52000; 99214

== ENCOUNTER → 2024-07-09 13:04 | Outpatient (BNVA) | payer OTHER, SELFPAY | PROVIDERS: PCP Physician Assistant; Visit Provider Urology | DX: N30.90 Cystitis, unspecified without hematuria (principal); R31.29 Other microscopic hematuria | CPT/HCPCS: 52000; 81003; 99212 ==

== ENCOUNTER 2024-07-12 11:22 | Outpatient (AMB) | payer OTHER, SELFPAY ==
--- NOTE | 2024-07-12 11:41 | A.OFFPC_ITS ---
Vital Signs 07/12/24 11:44 Height 5 ft 7.5 in Weight 182 lb 6 oz BMI 28.1 BP 110/70 Blood Pressure Location Lt brachial Position Sitting Pulse 88 Pulse Source Pulse Oximeter Temp 98.2 F Temp Source Temporal Artery Scan Pulse Oximetry (%) 99 Oxygen Delivery Method Room Air Intake Visit Reasons: f/u GERD/ allergies Allergies fish oil Allergy (Severe, Verified 07/12/24 12:08) Hives diphenhydramine [From Benadryl] Allergy (Verified 07/12/24 12:08) Anaphylaxis trazodone Adverse Reaction (Intermediate, Verified 07/12/24 12:24) erection SEAFOOD Allergy (Severe, Uncoded 07/12/24 12:08) HIVES,SWELLING THROAT Medication List - Last Reconciled 07/12/24 by Yonatan Good PA-C albuterol sulfate 90 mcg/actuation (Ventolin HFA) 2 puffs inhalation Q4-6H PRN 30 days alfuzosin ER 10 mg PO BEDTIME 90 days clotrimazole-betamethasone 1-0.05 % 1 appl topical BID 30 days famotidine 40 mg PO BEDTIME 90 days fexofenadine (Kim Allergy) 180 mg PO DAILY 90 days fluticasone propionate 50 mcg/actuation 2 sprays intranasal DAILY naproxen 500 mg PO BID PRN 7 days Tobacco use date assessed: 10/23/23 Dental Screening Dental Screen Date: 01/28/24 HPI f/u GERD/ allergies HPI Details Patient is a 48 year male here today for follow-up visit. Patient's past history significant for vitamin-D deficiency, major depressive disorder GERD, inflammatory bowel disease, chronic rhinitis. Patient recently admitted to hospital for abdominal pain, nausea and vomiting and diarrhea. He did undergo an endoscopy and a colonoscopy due to his history of bright red blood per rectum and inflammatory bowel disease.. During his colonoscopy there was no signs of inflammatory bowel disease. Did get an MRI of his abdomen that did not show any signs of active inflammation suggestive of Crohn's. Mental health: He has also been under lot of stress as of late due to being a single parent, his last year from cancer. He was previously on anxiety and depression medication though has taken himself off over the last few years. He is willing to restart mental health medications and getting restarted with talk therapy to help him with his anxiety and depression. .. COPD: Unfortunately continues to smoke 8-10 cigarettes per day. He is now interested in nicotine replacement that quit smoking. Patient now followed by pulmonology and continues on Ventolin as needed. He reports he generally has stop smoking, still has his cigarette from time to time. He reports in the mornings having a somewhat productive cough. .. Anxiety: He reports his anxiety and stress has been elevated as he has been having some personal issues. He is taking care of his son alone. He is somewhat depressed at as well. He is interested in as-needed medication for his anxiety to help him come down. [facility] Medical History GERD (gastroesophageal reflux disease) Smoker Surgical History Hx of endoscopy History of colonoscopy Hx of cholecystectomy H/O knee surgery History of appendectomy History of hand surgery History of laparoscopic cholecystectomy (~11/2019) Family History Mother Hepatitis C Hypertension Diabetes Father Hepatitis C Hypertension Cancer Paternal Grandfather History of prostate cancer Hypertension Sister Diabetes Maternal Aunt Brain cancer Paternal Uncle History of prostate cancer Social History Housing: House Are you a primary intensive care medicine specialist to a significant other at home: No Do you presently have visiting nurse or other home services: No Alcohol intake: never Patient Tobacco Use Status: Current everyday Tobacco user Tobacco use type: Cigarette Cigarettes Per Day: 6 e-Cigarette/Vaping Use: Never Used Substance Use Type: Marijuana service: No Current occupational status: unemployed 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 1. Little interest or pleasure in doing things: more than half the days 2. Feeling down, depressed, or hopeless: several days 3. Trouble falling or staying asleep, or sleeping too much: nearly every day 4. Feeling tired or having little energy: more than half the days 5. Poor appetite or overeating: several days 6. Feeling bad about yourself - or that you are a failure or have let yourself or your family down: not at all 7. Trouble concentrating on things, such as reading the newspaper or watching television: several days 8. Moving or speaking so slowly that other people could have noticed. Or the opposite - being so fidgety or restless that you have been moving around a lot more than usual: not at all 9. Thoughts that you would be better off or of hurting yourself in some way: not at all Total score: 10 Depression Screening Interpretation: Positive Depression Screening Follow-up: Existing condition and Community Mental Health Worker F/U Depression Screening Done: Yes 96373 - PHQ-9 Billing: Yes Source: Developed by Drs. Lan Thurman, Janee Marquez, Beck Parkinson and colleagues, with an educational ole from [employer]. Thrive Questionnaire Date Thrive assessed: 07/12/24 I am a: Patient What is your living situation today?: I have a steady place to live Within the past 12 months, did the food you bought not last and you didn't have the money to get more?: Never true Within the past 12 months, did you worry whether your food would run out before you got money to buy more?: Never true Do you have trouble paying for medicines?: No Do you have trouble getting transportation to medical appointments?: No Do you have trouble paying your heating and electricity bill?: No Do you have trouble taking care of your child, family member or friend?: No Do you have trouble with day-to-day activities such as bathing, preparing meals, shopping, managing finances, etc.?: No Are you currently unemployed and looking for a job?: No Are you interested in more education?: No Please select the resources that you would like help with: None Currently or been in a relationship where the following occur: No concerns reported and I choose not to answer THRIVE Score: 0 AUDIT C Alcohol Use Questionnaire (AUDIT-C) 1. How often do you have a drink containing alcohol?: Never 3. How often do you have six or more drinks on one occasion?: Never Total Score: 0 JAKI-7 AMB Questionnaire JAKI-7 Date JAKI - 7 assessed: 07/12/24 Feeling nervous, anxious, or on edge: 0 = Not at all Not being able to stop or control worryin = Not at all Worrying too much about different things: 0 = Not at all Trouble relaxin = Not at all Being so restless that it is hard to sit still: 0 = Not at all Becoming easily annoyed or irritable: 0 = Not at all Feeling afraid as if something awful might happen: 0 = Not at all Total JAKI-7 score (0-4 normal; 5-9 mild; 10-14 moderate; 15-21 severe): 0 Source: Developed by Drs. Lan Thurman, Janee Marquez, Beck Pakrinson and colleagues, with an educational ole from [employer]. JAKI-7 Assessment Billing JAKI-7 Assessment Tool: JAKI-7 Assessment 36397 Review of Systems Const Denies headache(s) Eyes Denies loss of vision ENT Denies vertigo, Denies dizziness, Denies headache(s) and Denies sore throat Card Denies chest pain, Denies leg edema and Denies lightheadedness Resp Denies cough, Denies hemoptysis and Denies wheezing GI Denies abdominal pain, Denies melena, Denies constipation, Denies diarrhea and Denies vomiting Denies dysuria, Denies urinary frequency and Denies urinary urgency Musc Denies arthralgias, Denies joint swelling, Denies numbness and Denies tingling Neuro Denies Abnormal speech present, Denies behavioral changes, Denies vertigo, Denies dizziness, Denies headache(s), Denies loss of vision, Denies memory loss, Denies numbness and Denies tingling Psych Denies anxiety, Denies behavioral changes, Denies depression, Denies memory loss and Denies panic attacks Andrae/Lymph Denies easy bleeding and Denies easy bruising Aller/Immun Denies wheezing Physical exam (Primary Care) Vital Signs: Last Vital Signs Temp 98.2 F 07/12/24 11:44 Pulse 88 07/12/24 11:44 BP 110/70 07/12/24 11:44 Pulse Ox 99 07/12/24 11:44 Oxygen Delivery Method Room Air 07/12/24 11:44 BMI result Body Mass Index 28.1 Tobacco/Smoking Status: Tobacco use Status Tobacco use date assessed 10/23/23 07/12/24 11:41 Patient Tobacco Use Status Current everyday Tobacco 07/12/24 11:41 Tobacco use type Cigarette 07/12/24 11:41 e-Cigarette/Vaping Use Never Used 07/12/24 11:41 Are you ready to quit: Yes Tobacco cessation counseling provided: Yes Items discussed: Nicotine replacement Relapse Prevention: discussed the importance of a supportive environment, discussed negative mood or depression after quitting, weight gain after smoking is common and discussed dietary, exercise and/or lifestyle changes Number of minutes spent counselin CPT code: 87645 - 4-10 Minutes PHQ-9: PHQ-9 Score PHQ-9: Total score 10 07/12/24 12:10 Depression Screening Interpretation: Positive Depression Screening Follow-up: Existing condition and Community Mental Health Worker F/U Thrive Assessment: Date of Thrive Assessment Date Thrive assessed 07/12/24 07/12/24 11:41 Currently or been in a relationship where the following occur: No concerns reported and I choose not to answer Const General: healthy appearing, no acute distress, alert and awake Nutritional Appearance: well nourished Orientation/consciousness: oriented to person, oriented to place and oriented to time HENMT Ears: TM's normal bilaterally General nose exam: Normal nasal mucous membranes and turbinates present Eyes Conjunctivae: conjunctivae normal Sclerae: sclerae normal Pupils: Equal, round and reactive pupils present Neck Neck: Yes no lymphadenopathy and Yes no JVD Thyroid: Thyroid normal Carotids: no bruits Resp Effort & Inspection: normal respiratory effort and not tachypneic Auscultation: no crackles, no rales, no rhonchi and no wheezes Cardio Rate: regular rate Rhythm: regular rhythm Heart sounds: no murmurs and normal S1 and S2 GI Palpation (GI): Soft to palpation, nontender, no hepatomegaly and no splenomegaly Auscultation: normal bowel sounds Skin General skin exam: no rashes or lesions noted and dry skin Neuro General: oriented to person, oriented to place and oriented to time Cranial nerves: Yes Equal, round and reactive pupils present Speech: No Abnormal speech present Gait exam (Neuro): Normal gait present Motor exam (neuro): no tremor noted Extrem Right upper extremity: full ROM Left upper extremity: full ROM Right lower extremity: full ROM; no edema Left lower extremity: full ROM; no edema Psych Mental Status: mental status grossly normal Speech and movement: Normal speech and movement present Affect: normal affect Attitude: cooperative Thought process: Normal thought process present Coding Level of Care Code Est Pt Level 4 (21257) Diagnoses IBD (inflammatory bowel disease) K52.9 Cystitis N30.90 Bleeding hemorrhoid K64.9 Tobacco dependence F17.200 Additional Codes JAKI-7 Assessment Billing - JAKI-7 Assessment Tool: JAKI-7 Assessment 49568 ([id number]) PHQ-9 - 68853 - PHQ-9 Billing: Yes ([id number]) Vital Signs *Quality* - CPT code: 93803 - 4-10 Minutes ([id number]) Assessment & Plan Assessment & Plan (1) IBD (inflammatory bowel disease): Code(s): K52.9 - Noninfective gastroenteritis and colitis, unspecified Category: Medical Plan: Patient has been told knee at Crohn's disease in the past. He had a extensive workup at [facility] recently and will try to get records. He reports getting a colonoscopy and was told he had hemorrhoids though no signs of active inflammation. He does report rectal pain and bleeding quite often. Will continue antacid medication and p.r.n. use of Tylenol 3 for his pain. Has upcoming appointment with ed manager in July 2024 (2) Cystitis: Code(s): N30.90 - Cystitis, unspecified without hematuria Category: Medical Plan: Patient continues to follow [facility] urologist, underwent cystoscopy recently was started on alfuzosin trial. (3) Bleeding hemorrhoid: Code(s): K64.9 - Unspecified hemorrhoids Category: Medical Plan: As above (4) Tobacco dependence: Code(s): F17.200 - Nicotine dependence, unspecified, uncomplicated Category: Medical Plan: Patient does understand he needs to quit smoking. He is willing to start nicotine replacement to help him quit smoking. Orders: Orders Prostate Specific Antigen Scr Today K64.9 - Unspecified hemorrhoids, Z12.5 - Encounter for screening for malignant neoplasm of prostate Complete Blood Count no Diff Today K64.9 - Unspecified hemorrhoids Comprehensive Met. Panel Today K64.9 - Unspecified hemorrhoids Referrals Counseling Referral F41.1 - Generalized anxiety disorder Medications: New mirtazapine 15 mg PO BEDTIME 30 tabs 1RF 30 days F41.1 - Generalized anxiety disorder nicotine 1 patch transdermal DAILY 14 ea 0RF 14 days F17.200 - Nicotine dependence, unspecified, uncomplicated acetaminophen-codeine 300-30 mg 1 tab PO Q8H PRN 12 tabs 0RF pain 4 days K52.9 - Noninfective gastroenteritis and colitis, unspecified Refilled albuterol sulfate 90 mcg/actuation (Ventolin HFA) 2 puffs inhalation Q4-6H PRN 8.5 grams 3RF shortness of breath or wheezing 30 days R06.2 - Wheezing fexofenadine (Kim Allergy) 180 mg PO DAILY 90 tabs 1RF 90 days J30.89 - Other allergic rhinitis, R05 - Cough
[2024-07-12 11:44] VITALS: BP 110/70; PULSE 88; TEMP 36.8; O2SAT 99; BMI 28.1
--- OUTSIDE RECORDS SUMMARY | 2024-07-12 13:24 | XMS_ITS | Clinical Summary ---
Author Organization [facility] Address [address] [place] [address] Phone Care Team Providers Care Sales Enablement Consultant Name Role Phone Physician, No Pcp Primary Care Provider Unavaila ble Allergies Active Allergy Reactions Criticality Noted Date Comments Diphenhydramine Hcl Hives 06/06/2024 [place] Oil Hives 06/06/2024 Medications omeprazole (PriLOSEC) [address] capsule Take 1 capsule (20 mg total) by mouth 1 (one) time each day. Do not crush or chew. 30 each 06/07/2024 07/08/19 25 Encounters Date Type Department Care Team Description 06/06/2024 7:58 PM EDT - 06/07/2024 1:24 AM EDT Emergency [facility] Emergency [address] [place] [address] Acute gastritis without hemorrhage, unspecified gastritis type (Primary Dx) Discharge Disposition: Home or Self Care from Last 3 Months Surgical History Surgery Date Site/Laterality Comments APPENDECTOMY CHOLECYSTECTOMY HERNIA REPAIR Medical History Medical History Date Comments Crohn's colitis ([facility] V24, CMS/[facility] V28) Social History Tobacco Use Types Packs/Day [...] Dowd MD on 06/06/2024 22:39:51 Cornelius [facility] [place] PROCEDURES Final Result * (ABNORMAL) Urinalysis with reflex microscopic and culture (06/06/2024 4:55 PM EDT) Specific [place] Urine 1.034(H) 1.003 - 1.030 LAB URINALYSIS [...] - AUTOMATED METHOD 06/06/2024 6:11 PM EDT [facility] Blood, Urine Negative Negative LAB URINALYSIS - AUTOMATED METHOD 06/06/2024 6:11 PM EDT [facility] RBC, Urine 0 0 - 4 /HPF 06/06/2024 6:11 PM EDT [facility] WBC, Urine 5(H) 0 - 4 /HPF 06/06/2024 6:11 PM EDT [facility] Squamous Epithelial, Urine >100(H) 0 - 60 /LPF 06/06/2024 6:11 PM EDT [facility] Crystals, Urine Light Calcium Oxalate crystals. /LPF 06/06/2024 6:11 PM EDT [facility] Bacteria, Urine Moderate(A) Negative /HPF 06/06/2024 6:11 PM EDT [facility] Hyaline Casts, Urine 0 0 - 3 /LPF 06/06/2024 6:11 PM [facility] Mucus, Urine Large None /HPF 06/06/2024 6:11 PM EDT [facility] Urine Urine specimen obtained by clean catch procedure / Unknown Non-blood Collection / Unknown 06/06/2024 4:55 PM EDT 06/06/2024 5:01 PM EDT us Tasia Frances DO LAB URINE ORDERABLES Matilda l Result [facility] [address] [place] [address], * Hernandez urine culture tube (06/06/2024 4:55 PM EDT) Extra Tube Hold for add-ons. 06/06/2024 7:01 PM EDT [facility] Comment:Auto resulted. Urine Urine specimen obtained by clean catch procedure / Unknown Non-blood Collection / Unknown 06/06/2024 4:55 PM EDT 06/06/2024 5:01 PM EDT Tasia Frances LAB URINE ORDERABLES Matilda l Result Performing Organization Address City/[facility]/ZIP Co de Phone Number [facility] [address] [place] [address], [place] [phone] * Culture urine (06/06/2024 4:55 PM EDT) Pathologist [facility] Culture, Urine No growth 06/07/2024 1:29 PM EDT [facility] Urine Urine specimen obtained by clean catch procedure / Unknown Non-blood Collection / Unknown 06/06/2024 4:55 PM EDT 06/06/2024 6:11 PM EDT [facility] Eric Frances LAB MICROBIOLOGY - GENERA L ORDERABLES Final Result Performing Organization Address [facility]/ZIP Co de Phone Number [facility] [address] [place] [address], [place] [phone] * (ABNORMAL) CBC auto differential (06/06/2024 4:52 PM EDT) WBC 13.9(H) 4.8 - 10.8 K/[facility] LAB HEMETOLOGY METHOD 06/06/2024 5:07 PM EDT [facility] RBC 5.40 4.50 - 5.50 M/[facility] LAB HEMETOLOGY METHOD 06/06/2024 5:07 PM EDT [facility] Hemoglobin 17.5 13.5 - 17.5 g/dL LAB HEMETOLOGY METHOD 06/06/2024 5:07 PM EDT [facility] Hematocrit 49.9 42.0 - 54.0 [...] LAB HEMETOLOGY METHOD 06/06/2024 5:07 PM EDT [facility] Immature Granulocytes Relative 0.6 % LAB HEMETOLOGY METHOD 06/06/2024 5:07 PM EDT [facility] Neutrophils Absolute 9.78(H) 1.50 - 7.00 K/mcL LAB HEMETOLOGY METHOD 06/06/2024 5:07 PM EDT [facility] Lymphocytes Absolute 2.74 1.00 - 5.00 K/mcL LAB HEMETOLOGY METHOD 06/06/2024 5:07 PM EDT [facility] Monocytes Absolute 1.14(H) 0.20 - 1.00 K/mcL LAB HEMETOLOGY METHOD 06/06/2024 5:07 PM EDT [facility] Eosinophils Absolute 0.10 0.00 - 0.50 K/mcL LAB HEMETOLOGY METHOD 06/06/2024 5:07 PM EDT [facility] Basophils Absolute 0.04 0.00 - 0.20 K/mcL LAB HEMETOLOGY METHOD 06/06/2024 5:07 PM EDT [facility] Immature Granulocytes Absolute 0.09(H) 0.00 - 0.03 K/mcL LAB HEMETOLOGY METHOD 06/06/2024 5:07 PM EDT [facility] Blood Venous blood specimen / Unknown Venipuncture / Unknown 06/06/2024 4:52 PM EDT 06/06/2024 5:02 PM EDT us Tasia Frances DO LAB BLOOD ORDERABLES Matilda l Result [facility] [address] [place] [address], * Lipase (06/06/2024 4:52 PM EDT) Lipase 40 13 - 75 unit/L LAB CHEMISTRY METHOD 06/06/2024 5:23 PM EDT [facility] Blood Venous blood specimen / Unknown Venipuncture / Unknown 06/06/2024 4:52 PM EDT 06/06/2024 5:02 PM EDT Tasia Frances DO LAB BLOOD ORDERABLES Matilda l Result [facility] [address] [place] [address], [place] [phone] * (ABNORMAL) Comprehensive metabolic panel (06/06/2024 4:52 [...] LAB CHEMISTRY METHOD 06/06/2024 5:29 PM EDT [facility] Calcium 9.7 8.5 - 10.5 mg/dL LAB CHEMISTRY METHOD 06/06/2024 5:29 PM [facility] AST (SGOT) 23 10 - 42 unit/L LAB CHEMISTRY METHOD 06/06/2024 5:29 PM T [facility] ALT (SGPT) 23 10 - 60 unit/L LAB CHEMISTRY METHOD 06/06/2024 5:29 PM [facility] Alkaline Phosphatase 75 42 - 121 unit/L LAB CHEMISTRY METHOD 06/06/2024 5:29 PM [facility] Total Protein 8.0 6.0 - 8.0 g/dL LAB CHEMISTRY METHOD 06/06/2024 5:29 PM EDT [facility] Albumin 4.3 3.2 - 5.0 g/dL LAB CHEMISTRY METHOD 06/06/2024 5:29 PM [facility] Total Bilirubin 0.7 0.0 - 1.4 mg/dL LAB CHEMISTRY METHOD 06/06/2024 5:29 PM [facility] Blood Venous blood specimen / Unknown Venipuncture / Unknown 06/06/2024 4:52 PM EDT 06/06/2024 5:02 PM EDT us Tasia Frances DO LAB BLOOD ORDERABLES Matilda l Result [facility] [address] [place] [address], from Last 3 Months Insurance [facility] Care Teams Sales Enablement Consultant Relationship Specialty Start Date End Date Physician, No Pcp PCP - General 06/06/24
== END 2024-07-12 12:31 | disposition home or self-care (01) ==
LOC: HO.HMCH 11:22
PROVIDERS: PCP Physician Assistant; Visit Provider Physician Assistant
DX: K52.9 Noninfective gastroenteritis and colitis, unspecified (principal); N30.90 Cystitis, unspecified without hematuria; K64.9 Unspecified hemorrhoids; F17.200 Nicotine dependence, unspecified, uncomplicated

== ENCOUNTER → 2024-07-12 11:22 | Outpatient (BNVA) | payer OTHER, SELFPAY | PROVIDERS: PCP Physician Assistant; Visit Provider Physician Assistant | DX: J44.9 Chronic obstructive pulmonary disease, unspecified (principal); J30.89 Other allergic rhinitis; K21.9 Gastro-esophageal reflux disease without esophagitis; E55.9 Vitamin D deficiency, unspecified; F41.9 Anxiety disorder, unspecified; K52.9 Noninfective gastroenteritis and colitis, unspecified; N30.90 Cystitis, unspecified without hematuria; K64.9 Unspecified hemorrhoids; F17.210 Nicotine dependence, cigarettes, uncomplicated | CPT/HCPCS: 96127; 99212 ==

== ENCOUNTER 2024-08-11 14:29 | Outpatient (AMB) | payer OTHER, SELFPAY ==
--- OUTSIDE RECORDS SUMMARY | 2024-08-11 14:33 | XMS_ITS | Clinical Summary ---
Author Organization [facility] Address [address] [place] [address] Phone Care Team Providers Care Pvc Monitor Name Role Phone Physician, No Pcp Primary Care Provider Unavaila ble Allergies Active Allergy Reactions Criticality Noted Date Comments Diphenhydramine Hcl Hives 06/06/2024 [place] Oil Hives 06/06/2024 Encounters Date Type Department Care Team Description 06/06/2024 7:58 PM EDT - 06/07/2024 1:24 AM EDT [facility] Emergency [address] [place] [address] Acute gastritis without hemorrhage, unspecified gastritis type (Primary Dx) Discharge Disposition: Home or Self Care from Last 3 Months Surgical History Surgery Date Site/Laterality Comments APPENDECTOMY CHOLECYSTECTOMY HERNIA REPAIR Medical History Medical History Date Comments Crohn's colitis ([facility] V24, [facility] V28) Social History Tobacco Use Types [...] Dowd MD on 06/06/2024 22:39:51 Cornelius [facility] CT PROCEDURES Final Result * (ABNORMAL) Urinalysis with reflex microscopic and culture (06/06/2024 4:55 PM EDT) Specific [place] Urine 1.034(H) 1.003 - 1.030 LAB URINALYSIS - AUTOMATED METHOD 06/06/2024 6:11 PM [facility] pH, Urine 5.5 5.0 - 8.0 pH LAB URINALYSIS - AUTOMATED METHOD 06/06/2024 6:11 PM [facility] Leukocytes, Urine Trace(A) Negative LAB URINALYSIS - AUTOMATED METHOD 06/06/2024 6:11 PM [facility] Nitrite, Urine Negative Negative LAB URINALYSIS - AUTOMATED METHOD 06/06/2024 6:11 PM [facility] Protein, Urine Trace <=Trace mg/dL LAB URINALYSIS - AUTOMATED METHOD 06/06/2024 6:11 PM [facility] Glucose, Urine Negative Negative mg/dL LAB URINALYSIS - AUTOMATED METHOD 06/06/2024 6:11 PM [facility] Ketones, Urine Trace(A) Negative mg/dL LAB URINALYSIS - AUTOMATED METHOD 06/06/2024 6:11 PM [facility] Urobilinogen , Urine 1.0 0.2 - 1.0 mg/dL LAB URINALYSIS - AUTOMATED METHOD 06/06/2024 6:11 PM [facility] Bilirubin, Urine Negative Negative LAB URINALYSIS - AUTOMATED METHOD 06/06/2024 6:11 PM [facility] Blood, Urine Negative Negative LAB URINALYSIS - AUTOMATED METHOD 06/06/2024 6:11 PM [facility] RBC, Urine 0 0 - 4 /HPF 06/06/2024 6:11 PM EDT [facility] WBC, Urine 5(H) 0 - 4 /HPF 06/06/2024 6:11 PM EDT [facility] Squamous Epithelial, Urine >100(H) 0 - 60 /LPF 06/06/2024 6:11 PM EDT [facility] Crystals, Urine Light Calcium Oxalate crystals. /LPF 06/06/2024 6:11 PM EDT [facility] Bacteria, Urine Moderate(A) Negative /HPF 06/06/2024 6:11 PM EDT [facility] Hyaline Casts, Urine 0 0 - 3 /LPF 06/06/2024 6:11 PM EDT [facility] Mucus, Urine Large None /HPF 06/06/2024 6:11 PM EDT [facility] Urine Urine specimen obtained by clean catch procedure / Unknown Non-blood Collection / Unknown 06/06/2024 4:55 PM EDT 06/06/2024 5:01 PM EDT us Tasia Frances DO LAB URINE ORDERABLES Matilda l Result [facility] [address] [place] [address], [place] [phone] * Hernandez urine culture tube (06/06/2024 4:55 PM EDT) Extra Tube Hold for add-ons. 06/06/2024 7:01 PM EDT [facility] Comment:Auto resulted. Urine Urine specimen obtained by clean catch procedure / Unknown Non-blood Collection / Unknown 06/06/2024 4:55 PM EDT 06/06/2024 5:01 PM EDT us Tasia Frances LAB URINE ORDERABLES Matilda l Result Performing Organization Address City/[facility]/ZIP Co de Phone Number [facility] [address] [place] [address], * Culture urine (06/06/2024 4:55 PM EDT) Pathologist [facility] Culture, Urine No growth 06/07/2024 1:29 PM EDT [facility] Urine Urine specimen obtained by clean catch procedure / Unknown Non-blood Collection / Unknown 06/06/2024 4:55 PM EDT 06/06/2024 6:11 PM EDT Tasia Frances DO LAB MICROBIOLOGY - GENERA L ORDERABLES Final Result Performing Organization Address [facility]/ZIP Co de Phone Number [facility] [address] [place] [address], * (ABNORMAL) CBC auto differential (06/06/2024 4:52 PM EDT) [facility] WBC 13.9(H) 4.8 - 10.8 K/mcL LAB HEMETOLOGY METHOD 06/06/2024 5:07 PM EDT [facility] RBC 5.40 4.50 - 5.50 M/[facility] LAB HEMETOLOGY METHOD 06/06/2024 5:07 PM EDT [facility] Hemoglobin 17.5 13.5 - 17.5 g/dL LAB HEMETOLOGY METHOD 06/06/2024 5:07 PM EDT [facility] Hematocrit 49.9 42.0 - 54.0 % LAB HEMETOLOGY METHOD 06/06/2024 5:07 PM EDT [facility] MCV 91.9 79.0 - 98.0 FL LAB HEMETOLOGY METHOD 06/06/2024 5:07 PM EDT [facility] MCH 32.2(H) 27.0 - 32.0 pcg LAB HEMETOLOGY METHOD 06/06/2024 5:07 PM [facility] MCHC 35.1 32.0 - 37.0 g/dL LAB HEMETOLOGY METHOD 06/06/2024 5:07 PM [facility] RDW 12.7 11.0 - 15.0 % LAB HEMETOLOGY METHOD 06/06/2024 5:07 PM [facility] Platelets 331 130 - 400 K/mcL LAB HEMETOLOGY METHOD 06/06/2024 5:07 PM [facility] MPV 10.2 7.0 - 11.0 FL LAB HEMETOLOGY METHOD 06/06/2024 5:07 PM [facility] NRBC 0.0 <1.0 % LAB HEMETOLOGY METHOD 06/06/2024 5:07 PM [facility] NRBC Absolute 0.00 <0.10 K/mcL LAB HEMETOLOGY METHOD 06/06/2024 5:07 PM [facility] Neutrophils Relative 70.5 % LAB HEMETOLOGY METHOD 06/06/2024 5:07 PM [facility] Lymphocytes Relative 19.7 % LAB HEMETOLOGY METHOD 06/06/2024 5:07 PM [facility] Monocytes Relative 8.2 % LAB HEMETOLOGY METHOD 06/06/2024 5:07 PM [facility] Eosinophils Relative 0.7 % LAB HEMETOLOGY METHOD 06/06/2024 5:07 PM [facility] Basophils Relative 0.3 % LAB HEMETOLOGY METHOD 06/06/2024 5:07 PM [facility] Immature Granulocytes Relative 0.6 % LAB HEMETOLOGY METHOD 06/06/2024 5:07 PM [facility] Neutrophils Absolute 9.78(H) 1.50 - 7.00 K/mcL LAB HEMETOLOGY METHOD 06/06/2024 5:07 PM EDT [facility] Lymphocytes Absolute 2.74 1.00 - 5.00 K/mcL LAB HEMETOLOGY METHOD 06/06/2024 5:07 PM EDT [facility] Monocytes Absolute 1.14(H) 0.20 - 1.00 K/mcL LAB HEMETOLOGY METHOD 06/06/2024 5:07 PM EDT [facility] Eosinophils Absolute 0.10 0.00 - 0.50 K/[facility] LAB HEMETOLOGY METHOD 06/06/2024 5:07 PM EDT [facility] Basophils Absolute 0.04 0.00 - 0.20 K/[facility] LAB HEMETOLOGY METHOD 06/06/2024 5:07 PM EDT [facility] Immature Granulocytes Absolute 0.09(H) 0.00 - 0.03 K/[facility] HEMETOLOGY METHOD 06/06/2024 5:07 PM EDT [facility] Blood Venous blood specimen / Unknown Venipuncture / Unknown 06/06/2024 4:52 PM EDT 06/06/2024 5:02 PM EDT us Tasia Frances DO LAB BLOOD ORDERABLES Matilda l Result [facility] [address] [place] [address], * Lipase (06/06/2024 4:52 PM EDT) Lipase 40 13 - 75 unit/L LAB CHEMISTRY METHOD 06/06/2024 5:23 PM EDT [facility] Blood Venous blood specimen / Unknown Venipuncture / Unknown 06/06/2024 4:52 PM EDT 06/06/2024 5:02 PM EDT us Ting Ho Alex Frances DO LAB BLOOD ORDERABLES Matilda l Result [facility] [address] [place] [address], * (ABNORMAL) Comprehensive metabolic panel (06/06/2024 4:52 PM EDT) Sodium 137 133 - 145 mmol/L LAB CHEMISTRY METHOD 06/06/2024 5:29 PM EDT [facility] Potassium 4.6 3.5 - 5.5 mmol/L LAB CHEMISTRY METHOD 06/06/2024 5:29 PM [facility] Chloride 104 96 - 110 mmol/L LAB CHEMISTRY METHOD 06/06/2024 5:29 PM [facility] CO2 28 21 - 32 mmol/L LAB CHEMISTRY METHOD [facility]/06[facility]24 [facility] Anion Gap 5 3 - 11 LAB CHEMISTRY METHOD 06/06/2024 5:29 PM [facility] Glucose 106(H) 70 - 100 mg/dL LAB CHEMISTRY METHOD 06/06/2024 5:29 PM [facility] BUN 9 5 - 25 mg/dL LAB CHEMISTRY METHOD 06/06/2024 5:29 PM [facility] Creatinine 1.05 0.70 - 1.30 mg/dL LAB CHEMISTRY METHOD 06/06[facility]2024 5:[facility] eGFR 89 >=60 mL/min/1. 73m2 LAB CHEMISTRY METHOD 06/06/2024 5:29 PM [facility] Comment:Calculation based on the??Chronic Kidney Disease Epidemiology Collaboration (CKD-EPI) equation refit??without adjustment for race. BUN/Creatinine Ratio 8.6 LAB CHEMISTRY METHOD 06/06/2024 5:29 PM [facility] Calcium 9.7 8.5 - 10.5 mg/dL LAB CHEMISTRY METHOD 06/06/2024 5:29 PM EDT [facility] AST (SGOT) 23 10 - 42 unit/L LAB CHEMISTRY METHOD 06/06/2024 5:29 PM EDT [facility] ALT (SGPT) 23 10 - 60 unit/L LAB CHEMISTRY METHOD 06/06/2024 5:29 PM EDT [facility] Alkaline Phosphatase 75 42 - 121 unit/L LAB CHEMISTRY METHOD 06/06/2024 5:29 PM EDT [facility] Total Protein 8.0 6.0 - 8.0 g/dL LAB CHEMISTRY METHOD 06/06/2024 5:29 PM EDT [facility] Albumin 4.3 3.2 - 5.0 g/dL LAB CHEMISTRY METHOD 06/06/2024 5:29 PM EDT [facility] Total Bilirubin 0.7 0.0 - 1.4 mg/dL LAB CHEMISTRY METHOD 06/06/2024 5:29 PM EDT [facility] Blood Venous blood specimen / Unknown Venipuncture / Unknown 06/06/2024 4:52 PM EDT 06/06/2024 5:02 PM EDT Tasia Frances DO LAB BLOOD ORDERABLES Matilda l Result [facility] [address] [place] [address], from Last 3 Months Insurance [facility] [employer] Care Teams Pvc Monitor Relationship Specialty Start Date End Date Physician, No Pcp PCP - General 06/06/24
--- NOTE | 2024-08-11 14:35 | MHC.OFFVIS ---
Intake Visit Reasons: 6m follow up Intake Note: Patient is present for 6M F/U Urology Medication:ALFUZOSIN Antibiotic Allergy:NONE Blood Thinner:NONE Small Battery Plate Assembler Required: No Allergies fish oil Allergy (Severe, Verified 08/11/24 14:37) Hives diphenhydramine [From Benadryl] Allergy (Verified 08/11/24 14:37) Anaphylaxis trazodone Adverse Reaction (Intermediate, Verified 08/11/24 14:37) erection SEAFOOD Allergy (Severe, Uncoded 08/11/24 14:37) HIVES,SWELLING THROAT HPI Comments Details: Juan C is a pleasant 47-year-old male. He is a patient of Dr. Good. 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 This lesion is considered to represent a benign reactive fibrous proliferation in response to a previous infection or trauma Cystitis Seen on imaging Persistent microscopic hematuria PFSH Medical History GERD (gastroesophageal reflux disease) Smoker Surgical History Hx of endoscopy History of colonoscopy Hx of cholecystectomy H/O knee surgery History of appendectomy History of hand surgery History of laparoscopic cholecystectomy (~11/2019) Family History Mother Hepatitis C Hypertension Diabetes Father Hepatitis C Hypertension Cancer Paternal Grandfather History of prostate cancer Hypertension Sister Diabetes Maternal Aunt Brain cancer Paternal Uncle History of prostate cancer Social History Housing: House Are you a primary manager medicare marketing to a significant other at home: No Do you presently have visiting nurse or other home services: No Alcohol intake: never Patient Tobacco Use Status: Current everyday Tobacco user Tobacco use type: Cigarette Cigarettes Per Day: 6 e-Cigarette/Vaping Use: Never Used Substance Use Type: Marijuana service: No Current occupational status: unemployed 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 Cognitive needs: No Hearing needs: No Vision needs: No Review of Systems Const Denies chills and Denies fever(s) Card Reports no additional complaints and Denies syncope Resp Denies cough GI Denies abdominal pain and Denies heartburn Reports as per HPI and Denies change in libido Neuro Denies syncope Psych Denies change in libido Endo Denies change in libido Physical Exam Const General: cooperative, healthy appearing, comfortable and no acute distress Orientation/consciousness: patient oriented x3 HEENT Face and sinus: Yes normal facial exam Mouth: moist mucous membranes Neck Neck: Yes normal visual inspection, Yes full ROM and Yes trachea midline Chest Chest palpation & inspection: normal inspection of the chest Resp Effort & Inspection: normal respiratory effort, able to speak in complete sentences and no respiratory distress GI Inspection: Yes normal to inspection Back/Spine/Pelvis Cervical Spine: normal cervical lordosis Thoracic/Lumbar Spine: thoracic and lumbar spine normal to inspection Skin General skin exam: no rashes or lesions noted Neuro General: patient oriented x3, gait normal, tone normal and moves all extremities Extrem General: Yes normal to inspection and Yes capillary refill normal Assessment & Plan Assessment & Plan (1) Testicular pain: Code(s): N50.819 - Testicular pain, unspecified Category: Medical Qualifiers: Laterality: left Qualified Code(s): N50.812 - Left testicular pain (2) Epididymitis: Code(s): N45.1 - Epididymitis Category: Medical (3) Bladder outlet obstruction: Code(s): N32.0 - Bladder-neck obstruction Category: Medical Plan Six-month follow-up PSA office Orders: Orders Prostate Specific Antigen 6 Months R33.9 - Retention of urine, unspecified Medications: Refilled alfuzosin ER Take before bedtime 10 mg PO BEDTIME 90 days 90 tabs 1RF N30.90 - Cystitis, unspecified without hematuria, R39.12 - Poor urinary stream alfuzosin ER Take before bedtime 10 mg PO BEDTIME 90 days 90 tabs 1RF N30.90 - Cystitis, unspecified without hematuria, R39.12 - Poor urinary stream Discontinued naproxen Discontinued Reason: Patient Completed Course 500 mg PO BID 7 days PRN 14 tabs 0RF pain clotrimazole-betamethasone 1-0.05 % Discontinued Reason: Patient Completed Course 1 appl topical BID 30 days 45 grams 0RF L30.9 - Dermatitis, unspecified Patient Instructions: This note is constructed using voice recognition software. While every effort has been made to ensure accuracy airplane pilot errors may have been included. Imaging studies, laboratory and physical exam results were discussed and reviewed in detail. No major barriers to patient understanding were identified. An opportunity to ask questions regarding the treatment plan was provided. All questions were answered. The patient expressed understanding and agreement with the above treatment plan. The patient is aware they should contact our office by phone for worsening of their current condition or the appearance of new urologic symptoms. Compliance is encouraged with any medications and followup testing that is ordered. It is a privilege to participate in the urologic care of your patient. If you have any questions or concerns regarding treatment for the above conditions, or other urologic issues, please do not hesitate to contact me. The office telephone contact is [phone]. Sincerely, Dr Yuniel Rosario MD, [facility] - Urology Compassionate Specialist Care for the Genitourinary System Coding Level of Care Code Est Pt Level 3 (96802) Diagnoses Pain in left testicle N50.812 Laterality: left Epididymitis N45.1 Bladder outlet obstruction N32.0
== END 2024-08-11 15:35 | disposition home or self-care (01) ==
LOC: HO.HUSH 14:29
PROVIDERS: PCP Physician Assistant; Visit Provider Urology
DX: N50.812 Left testicular pain (principal); N45.1 Epididymitis; N32.0 Bladder-neck obstruction
CPT/HCPCS: 99213

== ENCOUNTER → 2024-08-11 14:29 | Outpatient (BNVA) | payer OTHER, SELFPAY | PROVIDERS: PCP Physician Assistant; Visit Provider Urology | DX: N50.812 Left testicular pain (principal); N45.1 Epididymitis; N32.0 Bladder-neck obstruction; R33.9 Retention of urine, unspecified; N30.90 Cystitis, unspecified without hematuria; R39.12 Poor urinary stream; L30.9 Dermatitis, unspecified | CPT/HCPCS: 99212 ==

== ENCOUNTER 2024-08-19 13:14 | Outpatient (AMB) | payer OTHER, SELFPAY ==
--- NOTE | 2024-08-19 13:18 | MHC.OFFVIS ---
Vital Signs 08/19/24 13:22 Height 5 ft 7.5 in Weight 176 lb 5.917 oz BMI 27.2 BP 125/80 Blood Pressure Location Lt brachial Position Sitting Pulse 78 Intake Visit Reasons: RUQ pains, Nausea Intake Note: Juan C presents in the office as a new patient for RUQ pains and Nausea CC: States he constantly has diarrhea that is very brown. RUQ pains and nausea. Supervisor Extruding Department Required: No Allergies fish oil Allergy (Severe, Verified 08/19/24 13:23) Hives diphenhydramine [From Benadryl] Allergy (Verified 08/19/24 13:23) Anaphylaxis trazodone Adverse Reaction (Intermediate, Verified 08/19/24 13:23) erection SEAFOOD Allergy (Severe, Uncoded 08/19/24 13:23) HIVES,SWELLING THROAT HPI HPI RUQ pains, Nausea: Details: 44-year-old man with hx of appendectomy who I am seeing for f/u RECAP- seen initally 06/2018 for i/p assessment for abdo pain Patient had 1 d of nausea, vomiting, abdominal pain with loose stools for few days as well as sweats ( checked glucose and was low, he took orange juice and improved) Pain was burning in nature, feels like a ball in abdomen, and can feel hard to breath. apeptite is poor, and weight fluctuates. Denies sick contacts, or recent ingestion of badly cooked food. He had been on omeprazole for 20 years or so Of note he had been getting simialr attacks for several years, every 2 mon ths or so. He was smoking THC 1-2 times/week for many years since age of 14. TESTS: IMAGING: GES 11/2018--normal, 7% at 4 hrs mesenteric duplex: Mildly elevated velocity in the proximal superior mesenteric artery with low resistance waveform in the fasting state (which is abnormal; and a normal low resistance waveform in the postprandial state. u/s 02/2019--fatty liver, no gallstones or sludge CT abdo 03/2019--nml, no masses u/s 09/2019--tiny gallstone vs bile salt--referred for surgery Endoscopies: EGd/colonoscopy 07/2018- no ulcers etc, esophagitis, gastritis and duodenitis on bx, hemorrhodis noted EGD 10/2019-- duodenitis hemorrhoid banding by me helped with his rectal bleeding VCE--non specific areas of erythema INTERIM: He was in senior care for last few years been having similar LUQ and epigastric areas as well as RLQ pain can be worse with food usu about 20 mins later not taking opiates at this time --just THC nausea and vomiting every morning nichols his stomach stool is abnormal blood in stool weight has been going down appetite is poor he had some tests last month at [facility] incl EGD and colo? and CT scan LABS: [facility] --HGB 17, nml CMP incl LFT EXAM: GENERAL: The patient is well developed and nontoxic. VITAL SIGNS:see workflow HEENT: Nonicteric sclerae, PERRLA, EOMI. Oropharynx clear. Moist mucous membranes. Conjunctivae appear well perfused. No thyroid mass. CHEST: Chest wall is nontender. HEART: Regular rate and rhythm without murmurs. LUNGS: Clear to auscultation bilaterally. ABDOMEN: Soft, positive bowel sounds, tender epigastrium, no organomegaly.no flank tenderness SKIN: No rash, no excessive bruising, petechiae, or purpura. NEUROLOGIC: Cranial nerves II-XII intact without motor/sensory deficit. Psych: normal affect A?P: 1/ Abdominal pain- post prandial ddx: PUD, duodenitis, biliary etiology, gastroparesis, functional, IBD, vascular PLAN: 1/ [facility] notes 2/ maybe consider CTe vs CTA 3/ labs incl RAST, celiac, hep serologies, fecal lactoferrin 4/ may need repeat eGD or colo 5/ H pylori test, stop pepcid for 3 d then can go on PPI, can start carafate meantime PFSH Medical History GERD (gastroesophageal reflux disease) Smoker Surgical History Hx of endoscopy History of colonoscopy Hx of cholecystectomy H/O knee surgery History of appendectomy History of hand surgery History of laparoscopic cholecystectomy (~11/2019) Family History Mother Hepatitis C Hypertension Diabetes Father Hepatitis C Hypertension Cancer Paternal Grandfather History of prostate cancer Hypertension Sister Diabetes Maternal Aunt Brain cancer Paternal Uncle History of prostate cancer Social History (Reviewed 08/19/24 @ 13:22 by LORENA Queen Housing: House Are you a primary home child care provider to a significant other at home: No Do you presently have visiting nurse or other home services: No Alcohol intake: never Patient Tobacco Use Status: Current everyday Tobacco user Tobacco use type: Cigarette Cigarettes Per Day: 6 e-Cigarette/Vaping Use: Never Used Substance Use Type: Marijuana service: No Current occupational status: unemployed 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 Panel Today K52.9 - Noninfective gastroenteritis and colitis, unspecified, K75.81 - Nonalcoholic steatohepatitis (JULIAN) H Pylori Breath Test Today K52.9 - Noninfective gastroenteritis and colitis, unspecified Rast Allergen Today K52.9 - Noninfective gastroenteritis and colitis, unspecified, Z91.018 - Allergy to other foods Vitamin B12 and Folate Today K52.9 - Noninfective gastroenteritis and colitis, unspecified Complete Blood Count Auto Diff Today K52.9 - Noninfective gastroenteritis and colitis, unspecified C Reactive Protein Today K52.9 - Noninfective gastroenteritis and colitis, unspecified Hepatitis A,B,C Profile Today K52.9 - Noninfective gastroenteritis and colitis, unspecified Erythrocyte Sedimentation Rate Today K52.9 - Noninfective gastroenteritis and colitis, unspecified Fecal Fat Qualitative Today K52.9 - Noninfective gastroenteritis and colitis, unspecified Ferritin Today K52.9 - Noninfective gastroenteritis and colitis, unspecified Creatine Kinase Total Today K52.9 - Noninfective gastroenteritis and colitis, unspecified Medications: New sucralfate (Carafate) swish in mouth and swallow; use after food/drink 10 mL PO QID 1,000 mL 1RF esomeprazole magnesium do not start till after breath test 40 mg PO DAILY 30 caps 1RF Coding Level of Care Code Est Pt Level 4 (46250) Diagnoses IBD (inflammatory bowel disease) K52.9
--- OUTSIDE RECORDS SUMMARY | 2024-08-19 13:19 | XMS_ITS | Clinical Summary ---
Author Organization [facility] Address [address] [place] [address] Phone Care Team Providers Care Quality Worker Name Role Phone Physician, No Pcp Primary Care Provider Unavaila ble Allergies Active Allergy Reactions Criticality Noted Date Comments Diphenhydramine Hcl Hives 06/06/2024 [place] Oil Hives 06/06/2024 Encounters Date Type Department Care Team Description 06/06/2024 7:58 PM EDT - 06/07/2024 1:24 AM EDT Emergency [facility] Emergency [address] [place] [address] Acute gastritis without hemorrhage, unspecified gastritis type (Primary Dx) Discharge Disposition: Home or Self Care from Last 3 Months Surgical History Surgery Date Site/Laterality Comments APPENDECTOMY CHOLECYSTECTOMY HERNIA REPAIR Medical History Medical History Date Comments Crohn's colitis ([facility] V24, [facility] V28) Social History Tobacco Use [...] Dowd MD on 06/06/2024 22:39:51 Cornelius TAPIA [facility] CT PROCEDURES Final Result * (ABNORMAL) Urinalysis with reflex microscopic and culture (06/06/2024 4:55 PM EDT) Specific [place] Urine 1.034(H) 1.003 - 1.030 LAB URINALYSIS - AUTOMATED METHOD 06/06/2024 6:11 PM [facility] pH, Urine 5.5 5.0 - 8.0 pH LAB URINALYSIS - AUTOMATED METHOD 06/06/2024 6:11 PM [facility] Leukocytes, Urine Trace(A) Negative LAB URINALYSIS - AUTOMATED METHOD 06/06/2024 6:11 PM [facility] Nitrite, Urine Negative Negative LAB URINALYSIS - AUTOMATED METHOD 06/06/2024 6:11 PM [facility] Protein, Urine Trace <=Trace mg/dL LAB URINALYSIS - AUTOMATED METHOD 06/06/2024 6:11 PM [facility] Glucose, Urine Negative Negative mg/dL LAB URINALYSIS - AUTOMATED METHOD 06/06/2024 6:11 PM [facility] Ketones, Urine Trace(A) Negative mg/dL LAB URINALYSIS - AUTOMATED METHOD 06/06/2024 6:11 PM [facility] Urobilinogen , Urine 1.0 0.2 - 1.0 mg/dL LAB URINALYSIS - AUTOMATED METHOD 06/06/2024 6:11 PM [facility] Bilirubin, Urine Negative Negative LAB URINALYSIS - AUTOMATED METHOD 06/06/2024 6:11 PM [facility] Blood, Urine Negative Negative LAB URINALYSIS - AUTOMATED METHOD 06/06/2024 6:11 PM [facility] RBC, Urine 0 0 - 4 /HPF 06/06/2024 6:11 PM EDT [facility] WBC, Urine 5(H) 0 - 4 /HPF 06/06/2024 6:11 PM EDT [facility] Squamous Epithelial, Urine >100(H) 0 - 60 /LPF 06/06/2024 6:11 PM EDT [facility] Crystals, Urine Light Calcium Oxalate crystals. /LPF 06/06/2024 6:11 PM EDT [facility] Bacteria, Urine Moderate(A) Negative /HPF 06/06/2024 6:11 PM EDT [facility] Hyaline Casts, Urine 0 0 - 3 /LPF 06/06/2024 6:11 PM EDT [facility] Mucus, Urine Large None /HPF 06/06/2024 6:11 PM EDT [facility] Urine Urine specimen obtained by clean catch procedure / Unknown Non-blood Collection / Unknown 06/06/2024 4:55 PM EDT 06/06/2024 5:01 PM EDT us Tasia Frances DO LAB URINE ORDERABLES Matilda l Result [facility] [address] [place] [address], [place] [phone] * Hernandez urine culture tube (06/06/2024 4:55 PM EDT) Extra Tube Hold for add-ons. 06/06/2024 7:01 PM EDT [facility] Comment:Auto resulted. Urine Urine specimen obtained by clean catch procedure / Unknown Non-blood Collection / Unknown 06/06/2024 4:55 PM EDT 06/06/2024 5:01 PM EDT us Tasia Frances LAB URINE ORDERABLES Matilda l Result Performing Organization Address City/[facility]/ZIP Co de Phone Number [facility] [address] [place] [address], * Culture urine (06/06/2024 4:55 PM EDT) Pathologist [facility] Culture, Urine No growth 06/07/2024 1:29 PM EDT [facility] Urine Urine specimen obtained by clean catch procedure / Unknown Non-blood Collection / Unknown 06/06/2024 4:55 PM EDT 06/06/2024 6:11 PM EDT Tasia Frances DO LAB MICROBIOLOGY - GENERA L ORDERABLES Final Result Performing Organization Address [facility]/ZIP Co de Phone Number [facility] [address] [place] [address], * (ABNORMAL) CBC auto differential (06/06/2024 4:52 PM EDT) [facility] WBC 13.9(H) 4.8 - 10.8 K/mcL LAB HEMETOLOGY METHOD 06/06/2024 5:07 PM EDT [facility] RBC 5.40 4.50 - 5.50 M/[facility] LAB HEMETOLOGY METHOD 06/06/2024 5:07 PM EDT [facility] Hemoglobin 17.5 13.5 - 17.5 g/dL LAB HEMETOLOGY METHOD 06/06/2024 5:07 PM EDT [facility] Hematocrit 49.9 42.0 - 54.0 % LAB HEMETOLOGY METHOD 06/06/2024 5:07 PM EDT [facility] MCV 91.9 79.0 - 98.0 FL LAB HEMETOLOGY METHOD 06/06/2024 5:07 PM EDT [facility] MCH 32.2(H) 27.0 - 32.0 pcg LAB HEMETOLOGY METHOD 06/06/2024 5:07 PM [facility] MCHC 35.1 32.0 - 37.0 g/dL LAB HEMETOLOGY METHOD 06/06/2024 5:07 PM [facility] RDW 12.7 11.0 - 15.0 % LAB HEMETOLOGY METHOD 06/06/2024 5:07 PM [facility] Platelets 331 130 - 400 K/mcL LAB HEMETOLOGY METHOD 06/06/2024 5:07 PM [facility] MPV 10.2 7.0 - 11.0 FL LAB HEMETOLOGY METHOD 06/06/2024 5:07 PM [facility] NRBC 0.0 <1.0 % LAB HEMETOLOGY METHOD 06/06/2024 5:07 PM [facility] NRBC Absolute 0.00 <0.10 K/mcL LAB HEMETOLOGY METHOD 06/06/2024 5:07 PM [facility] Neutrophils Relative 70.5 % LAB HEMETOLOGY METHOD 06/06/2024 5:07 PM [facility] Lymphocytes Relative 19.7 % LAB HEMETOLOGY METHOD 06/06/2024 5:07 PM [facility] Monocytes Relative 8.2 % LAB HEMETOLOGY METHOD 06/06/2024 5:07 PM [facility] Eosinophils Relative 0.7 % LAB HEMETOLOGY METHOD 06/06/2024 5:07 PM [facility] Basophils Relative 0.3 % LAB HEMETOLOGY METHOD 06/06/2024 5:07 PM [facility] Immature Granulocytes Relative 0.6 % LAB HEMETOLOGY METHOD 06/06/2024 5:07 PM [facility] Neutrophils Absolute 9.78(H) 1.50 - 7.00 K/mcL LAB HEMETOLOGY METHOD 06/06/2024 5:07 PM EDT [facility] Lymphocytes Absolute 2.74 1.00 - 5.00 K/mcL LAB HEMETOLOGY METHOD 06/06/2024 5:07 PM EDT [facility] Monocytes Absolute 1.14(H) 0.20 - 1.00 K/mcL LAB HEMETOLOGY METHOD 06/06/2024 5:07 PM EDT [facility] Eosinophils Absolute 0.10 0.00 - 0.50 K/[facility] LAB HEMETOLOGY METHOD 06/06/2024 5:07 PM EDT [facility] Basophils Absolute 0.04 0.00 - 0.20 K/[facility] LAB HEMETOLOGY METHOD 06/06/2024 5:07 PM EDT [facility] Immature Granulocytes Absolute 0.09(H) 0.00 - 0.03 K/[facility] LAB HEMETOLOGY METHOD 06/06/2024 5:07 PM EDT [facility] Blood Venous blood specimen / Unknown Venipuncture / Unknown 06/06/2024 4:52 PM EDT 06/06/2024 5:02 PM EDT us Tasia Frances DO LAB BLOOD ORDERABLES Matilda l Result [facility] [address] [place] [address], * Lipase (06/06/2024 4:52 PM EDT) Lipase 40 13 - 75 unit/L LAB CHEMISTRY METHOD 06/06/2024 5:23 PM EDT [facility] Blood Venous blood specimen / Unknown Venipuncture / Unknown 06/06/2024 4:52 PM EDT 06/06/2024 5:02 PM EDT us Ting Ho Alex Frances DO LAB BLOOD ORDERABLES Matilda l Result [facility] [address] [place] [address], * (ABNORMAL) Comprehensive metabolic panel (06/06/2024 4:52 PM EDT) Sodium 137 133 - 145 mmol/L LAB CHEMISTRY METHOD 06/06/2024 5:29 PM EDT [facility] Potassium 4.6 3.5 - 5.5 mmol/L LAB CHEMISTRY METHOD 06/06/2024 5:29 PM [facility] Chloride 104 96 - 110 mmol/L LAB CHEMISTRY METHOD 06/06/2024 5:29 PM [facility] CO2 28 21 - 32 mmol/L LAB CHEMISTRY METHOD [facility]24 [facility] Anion Gap 5 3 - 11 LAB CHEMISTRY METHOD 06/06/2024 5:29 PM [facility] Glucose 106(H) 70 - 100 mg/dL LAB CHEMISTRY METHOD 06/06/2024 5:29 PM [facility] BUN 9 5 - 25 mg/dL LAB CHEMISTRY METHOD 06/06/2024 5:29 PM [facility] Creatinine 1.05 0.70 - 1.30 mg/dL LAB CHEMISTRY METHOD 06/06/2024 5:[facility] eGFR 89 >=60 mL/min/1. 73m2 LAB CHEMISTRY METHOD 06/06/2024 5:29 PM [facility] Comment:Calculation based on the??Chronic Kidney Disease Epidemiology Collaboration (CKD-EPI) equation refit??without adjustment for race. BUN/Creatinine Ratio 8.6 LAB CHEMISTRY METHOD 06/06/2024 5:29 PM [facility] Calcium 9.7 8.5 - 10.5 mg/dL LAB CHEMISTRY METHOD 06/06/2024 5:29 PM EDT [facility] AST (SGOT) 23 10 - 42 unit/L LAB CHEMISTRY METHOD 06/06/2024 5:29 PM EDT [facility] ALT (SGPT) 23 10 - 60 unit/L LAB CHEMISTRY METHOD 06/06/2024 5:29 PM EDT [facility] Alkaline Phosphatase 75 42 - 121 unit/L LAB CHEMISTRY METHOD 06/06/2024 5:29 PM EDT [facility] Total Protein 8.0 6.0 - 8.0 g/dL LAB CHEMISTRY METHOD 06/06/2024 5:29 PM EDT [facility] Albumin 4.3 3.2 - 5.0 g/dL LAB CHEMISTRY METHOD 06/06/2024 5:29 PM EDT [facility] Total Bilirubin 0.7 0.0 - 1.4 mg/dL LAB CHEMISTRY METHOD 06/06/2024 5:29 PM EDT [facility] Blood Venous blood specimen / Unknown Venipuncture / Unknown 06/06/2024 4:52 PM EDT 06/06/2024 5:02 PM EDT Tasia Frances DO LAB BLOOD ORDERABLES Matilda l Result [facility] [address] [place] [address], from Last 3 Months Insurance [facility] [employer] [employer] Care Teams Quality Worker Relationship Specialty Start Date End Date Physician, No Pcp PCP - General 06/06/24
[2024-08-19 13:22] VITALS: BP 125/80; PULSE 78; BMI 27.2
== END 2024-08-19 14:35 | disposition home or self-care (01) ==
LOC: HO.HGI 13:15
PROVIDERS: PCP Physician Assistant; Visit Provider Internal Medicine Gastroenterology
DX: K52.9 Noninfective gastroenteritis and colitis, unspecified (principal)
CPT/HCPCS: 99214

== ENCOUNTER → 2024-08-19 13:14 | Outpatient (BNVA) | payer OTHER, SELFPAY | PROVIDERS: PCP Physician Assistant; Visit Provider Internal Medicine Gastroenterology | DX: K52.9 Noninfective gastroenteritis and colitis, unspecified (principal) | CPT/HCPCS: 99212 ==

== ENCOUNTER 2024-08-24 13:11 | Outpatient (REF) | payer OTHER, SELFPAY ==
--- OUTSIDE RECORDS SUMMARY | 2024-08-24 13:16 | XMS_ITS | Clinical Summary ---
Author Organization [facility] Address [address] [place] [address] Phone Care Team Providers Care Funeral Arrangement Director Name Role Phone Physician, No Pcp Primary Care Provider Unavaila ble Allergies Active Allergy Reactions Criticality Noted Date Comments Diphenhydramine Hcl Hives 06/06/2024 [place] Oil Hives 06/06/2024 Encounters Date Type Department Care Team Description 06/06/2024 7:58 PM EDT - 06/07/2024 1:[address] [facility] Emergency [address] [place] [address] Acute gastritis without hemorrhage, unspecified gastritis type (Primary Dx) Discharge Disposition: Home or Self Care from Last 3 Months Surgical History Surgery Date Site/Laterality Comments APPENDECTOMY CHOLECYSTECTOMY HERNIA REPAIR Medical History Medical History Date Comments Crohn's colitis ([facility] V24, [facility] V28) Social History Tobacco Use Types Packs/Day [...] Dowd MD on 06/06/2024 22:39:51 Cornelius TAPIA [facility] CT PROCEDURES Final Result * (ABNORMAL) Urinalysis with reflex microscopic and culture (06/06/2024 4:55 PM EDT) Specific [place] Urine 1.034(H) 1.003 - 1.030 LAB URINALYSIS - AUTOMATED METHOD 06/06/2024 6:11 PM [facility] pH, Urine 5.5 5.0 - 8.0 pH LAB URINALYSIS - AUTOMATED METHOD 06/06/2024 6:11 PM [facility] Leukocytes, Urine Trace(A) Negative LAB URINALYSIS - AUTOMATED METHOD 06/06/2024 6:11 PM [facility] Nitrite, Urine Negative Negative LAB URINALYSIS - AUTOMATED METHOD 06/06/2024 6:11 PM [facility] Protein, Urine Trace <=Trace mg/dL LAB URINALYSIS - AUTOMATED METHOD 06/06/2024 6:11 PM [facility] Glucose, Urine Negative Negative mg/dL LAB URINALYSIS - AUTOMATED METHOD 06/06/2024 6:11 PM [facility] Ketones, Urine Trace(A) Negative mg/dL LAB URINALYSIS - AUTOMATED METHOD 06/06/2024 6:11 PM [facility] Urobilinogen , Urine 1.0 0.2 - 1.0 mg/dL LAB URINALYSIS - AUTOMATED METHOD 06/06/2024 6:11 PM [facility] Bilirubin, Urine Negative Negative LAB URINALYSIS - AUTOMATED METHOD 06/06/2024 6:11 PM [facility] Blood, Urine Negative Negative LAB URINALYSIS - AUTOMATED METHOD 06/06/2024 6:11 PM [facility] RBC, Urine 0 0 - 4 /HPF 06/06/2024 6:11 PM EDT [facility] WBC, Urine 5(H) 0 - 4 /HPF 06/06/2024 6:11 PM EDT [facility] Squamous Epithelial, Urine >100(H) 0 - 60 /LPF 06/06/2024 6:11 PM EDT [facility] Crystals, Urine Light Calcium Oxalate crystals. /LPF 06/06/2024 6:11 PM EDT [facility] Bacteria, Urine Moderate(A) Negative /HPF 06/06/2024 6:11 PM EDT [facility] Hyaline Casts, Urine 0 0 - 3 /LPF 06/06/2024 6:11 PM EDT [facility] Mucus, Urine Large None /HPF 06/06/2024 6:11 PM EDT [facility] Urine Urine specimen obtained by clean catch procedure / Unknown Non-blood Collection / Unknown 06/06/2024 4:55 PM EDT 06/06/2024 5:01 PM EDT us Tasia Frances DO LAB URINE ORDERABLES Matilda l Result [facility] [address] [place] [address], [place] [phone] * Hernandez urine culture tube (06/06/2024 4:55 PM EDT) Extra Tube Hold for add-ons. 06/06/2024 7:01 PM EDT [facility] Comment:Auto resulted. Urine Urine specimen obtained by clean catch procedure / Unknown Non-blood Collection / Unknown 06/06/2024 4:55 PM EDT 06/06/2024 5:01 PM EDT us Tasia Frances LAB URINE ORDERABLES Matilda l Result Performing Organization Address City/[facility]/ZIP Co de Phone Number [facility] [address] [place] [address], * Culture urine (06/06/2024 4:55 PM EDT) Pathologist [facility] Culture, Urine No growth 06/07/2024 1:29 PM EDT [facility] Urine Urine specimen obtained by clean catch procedure / Unknown Non-blood Collection / Unknown 06/06/2024 4:55 PM EDT 06/06/2024 6:11 PM EDT Tasia Frances DO LAB MICROBIOLOGY - GENERA L ORDERABLES Final Result Performing Organization Address [facility]/ZIP Co de Phone Number [facility] [address] [place] [address], * (ABNORMAL) CBC auto differential (06/06/2024 4:52 PM EDT) [facility] WBC 13.9(H) 4.8 - 10.8 K/mcL LAB HEMETOLOGY METHOD 06/06/2024 5:07 PM EDT [facility] RBC 5.40 4.50 - 5.50 M/[facility] LAB HEMETOLOGY METHOD 06/06/2024 5:07 PM EDT [facility] Hemoglobin 17.5 13.5 - 17.5 g/dL LAB HEMETOLOGY METHOD 06/06/2024 5:07 PM EDT [facility] Hematocrit 49.9 42.0 - 54.0 % LAB HEMETOLOGY METHOD 06/06/2024 5:07 PM EDT [facility] MCV 91.9 79.0 - 98.0 FL LAB HEMETOLOGY METHOD 06/06/2024 5:07 PM EDT [facility] MCH 32.2(H) 27.0 - 32.0 pcg LAB HEMETOLOGY METHOD 06/06/2024 5:07 PM [facility] MCHC 35.1 32.0 - 37.0 g/dL LAB HEMETOLOGY METHOD 06/06/2024 5:07 PM [facility] RDW 12.7 11.0 - 15.0 % LAB HEMETOLOGY METHOD 06/06/2024 5:07 PM [facility] Platelets 331 130 - 400 K/mcL LAB HEMETOLOGY METHOD 06/06/2024 5:07 PM [facility] MPV 10.2 7.0 - 11.0 FL LAB HEMETOLOGY METHOD 06/06/2024 5:07 PM [facility] NRBC 0.0 <1.0 % LAB HEMETOLOGY METHOD 06/06/2024 5:07 PM [facility] NRBC Absolute 0.00 <0.10 K/mcL LAB HEMETOLOGY METHOD 06/06/2024 5:07 PM [facility] Neutrophils Relative 70.5 % LAB HEMETOLOGY METHOD 06/06/2024 5:07 PM [facility] Lymphocytes Relative 19.7 % LAB HEMETOLOGY METHOD 06/06/2024 5:07 PM [facility] Monocytes Relative 8.2 % LAB HEMETOLOGY METHOD 06/06/2024 5:07 PM [facility] Eosinophils Relative 0.7 % LAB HEMETOLOGY METHOD 06/06/2024 5:07 PM [facility] Basophils Relative 0.3 % LAB HEMETOLOGY METHOD 06/06/2024 5:07 PM [facility] Immature Granulocytes Relative 0.6 % LAB HEMETOLOGY METHOD 06/06/2024 5:07 PM [facility] Neutrophils Absolute 9.78(H) 1.50 - 7.00 K/mcL LAB HEMETOLOGY METHOD 06/06/2024 5:07 PM EDT [facility] Lymphocytes Absolute 2.74 1.00 - 5.00 K/mcL LAB HEMETOLOGY METHOD 06/06/2024 5:07 PM EDT [facility] Monocytes Absolute 1.14(H) 0.20 - 1.00 K/mcL LAB HEMETOLOGY METHOD 06/06/2024 5:07 PM EDT [facility] Eosinophils Absolute 0.10 0.00 - 0.50 K/[facility] LAB HEMETOLOGY METHOD 06/06/2024 5:07 PM EDT [facility] Basophils Absolute 0.04 0.00 - 0.20 K/[facility] LAB HEMETOLOGY METHOD 06/06/2024 5:07 PM EDT [facility] Immature Granulocytes Absolute 0.09(H) 0.00 - 0.03 K/[facility] LAB HEMETOLOGY METHOD 06/06/2024 5:07 PM EDT [facility] Blood Venous blood specimen / Unknown Venipuncture / Unknown 06/06/2024 4:52 PM EDT 06/06/2024 5:02 PM EDT us Tasia Frances DO LAB BLOOD ORDERABLES Matilda l Result [facility] [address] [place] [address], * Lipase (06/06/2024 4:52 PM EDT) Lipase 40 13 - 75 unit/L LAB CHEMISTRY METHOD 06/06/2024 5:23 PM EDT [facility] Blood Venous blood specimen / Unknown Venipuncture / Unknown 06/06/2024 4:52 PM EDT 06/06/2024 5:02 PM EDT us Ting Ho Alex Frances DO LAB BLOOD ORDERABLES Matilda l Result [facility] [address] [place] [address], * (ABNORMAL) Comprehensive metabolic panel (06/06/2024 4:52 PM EDT) Sodium 137 133 - 145 mmol/L LAB CHEMISTRY METHOD 06/06/2024 5:29 PM EDT [facility] Potassium 4.6 3.5 - 5.5 mmol/L LAB CHEMISTRY METHOD 06/06/2024 5:29 PM [facility] Chloride 104 96 - 110 mmol/L LAB CHEMISTRY METHOD 06/06/2024 5:29 PM [facility] CO2 28 21 - 32 mmol/L LAB CHEMISTRY METHOD 06/06[facility]2024 [facility] Anion Gap 5 3 - 11 LAB CHEMISTRY METHOD 06/06/2024 5:29 PM [facility] Glucose 106(H) 70 - 100 mg/dL LAB CHEMISTRY METHOD 06/06/2024 5:29 PM [facility] BUN 9 5 - 25 mg/dL LAB CHEMISTRY METHOD 06/06/2024 5:29 PM [facility] Creatinine 1.05 0.70 - 1.30 mg/dL LAB CHEMISTRY METHOD 06/06/2024 5:[facility] eGFR 89 >=60 mL/min/1. 73m2 LAB CHEMISTRY METHOD 06/06/2024 5:29 PM [facility] Comment:Calculation based on the??Chronic Kidney Disease Epidemiology Collaboration (CKD-EPI) equation refit??without adjustment for race. BUN/Creatinine Ratio 8.6 LAB CHEMISTRY METHOD 06/06/2024 5:29 PM [facility] Calcium 9.7 8.5 - 10.5 mg/dL LAB CHEMISTRY METHOD 06/06/2024 5:29 PM EDT [facility] AST (SGOT) 23 10 - 42 unit/L LAB CHEMISTRY METHOD 06/06/2024 5:29 PM EDT [facility] ALT (SGPT) 23 10 - 60 unit/L LAB CHEMISTRY METHOD 06/06/2024 5:29 PM EDT [facility] Alkaline Phosphatase 75 42 - 121 unit/L LAB CHEMISTRY METHOD 06/06/2024 5:29 PM EDT [facility] Total Protein 8.0 6.0 - 8.0 g/dL LAB CHEMISTRY METHOD 06/06/2024 5:29 PM EDT [facility] Albumin 4.3 3.2 - 5.0 g/dL LAB CHEMISTRY METHOD 06/06/2024 5:29 PM EDT [facility] Total Bilirubin 0.7 0.0 - 1.4 mg/dL LAB CHEMISTRY METHOD 06/06/2024 5:29 PM EDT [facility] Blood Venous blood specimen / Unknown Venipuncture / Unknown 06/06/2024 4:52 PM EDT 06/06/2024 5:02 PM EDT Tasia Frances DO LAB BLOOD ORDERABLES Matilda l Result [facility] [address] [place] [address], from Last [address] [facility] Care Teams Funeral Arrangement Director Relationship Specialty Start Date End Date Physician, No Pcp PCP - General 06/06/24
[2024-08-24 13:43] LABS: MANUAL DIFF FLAG NO
[2024-08-24 14:46] LABS: Basophils Percent Auto 0.3 % (0-2); Eosinophils Absolute Auto 0.1 X10*3/uL (0.0-0.4); Eosinophils Percent Auto 0.8 % (0-4); Hematocrit 46.7 % (42.0-52.0); Hemoglobin 16.5 g/dl (14.0-18.0); Imm Gran Abs Auto 0.05 X10*3/uL (0.00-0.03); Imm Gran Pct Auto 0.4 % (0.0-0.4); Lymphocytes Absolute Auto 2.2 X10*3/uL (1.2-4.9); Lymphocytes Percent Auto 19.4 % (20-40); Mean Corpuscular HGB Conc 35.3 g/dl (31.0-36.0); Mean Corpuscular Hemoglobin 32.2 pg (27.0-33.0); Mean Platelet Volume 10.5 fL (9.4-12.4); Monocytes Absolute Auto 0.7 X10*3/uL (0.1-1.2); Neutrophils Absolute Auto 8.2 x10*3/uL (2.0-8.3); Neutrophils Percent Auto 73.1 % (45-73); Platelet Count 277 X10*3/uL (160-400); Red Blood Count 5.13 X10*6/uL (4.60-5.80); Red Cell Distribution Width 12.5 % (11.0-16.0); White Blood Count 11.2 X10*3/uL (4.8-10.8)
[2024-08-24 15:31] LABS: Erythrocyte Sedimentation Rate 2 MM/HR (0-15)
[2024-08-24 15:44] LABS: Ferritin 56 ng/mL (20-250)
[2024-08-24 15:57] LABS: Folate 12.1 ng/mL (> or = 4.0); Prostate Specific Antigen Scr 1.08 ng/mL (<0.05-4.0); Vitamin B12 444 pg/mL (200-900)
[2024-08-24 16:16] LABS: Alanine Aminotransferase 32 U/L (0-40); Albumin Level 4.3 g/dL (3.5-5.0); Alkaline Phosphatase 63 U/L (39-117); Anion Gap 11 (12-20); Aspartate Amino Transferase 24 U/L (5-37); Bilirubin Total 0.4 mg/dL (0.0-1.0); Blood Urea Nitrogen 12 mg/dL (9-16); C Reactive Protein < 0.10 mg/dL (< or = 0.50); Calcium 9.1 mg/dL (8.4-10.2); Carbon Dioxide 24 mmol/L (22-29); Chloride 107 mmol/L (96-108); Cholesterol 119 mg/dL (<200); Estimated Glomerular Filt Rate > 60; Glucose Fasting 162 mg/dL (60-99); Glucose Random 162 mg/dL (60-115); HDL Cholesterol 32 mg/dL (>40); LDL Cholesterol Calculated 57 mg/dL (<100); Potassium 3.8 mmol/L (3.3-5.1); Sodium 138 mmol/L (135-145); Triglycerides 152 mg/dL (<150)
[2024-08-25 05:59] LABS: Class Almond 0; Class Brazil Nut 0; Class Cashew 0; Class Codfish 0; Class Cow's Milk 0/1; Class Egg white 0; Class Hazelnut 3; Class Macadamia Nut 0; Class Peanut 0/1; Class Salmon 0; Class Scallop 0; Class Sesame Seed 0; Class Shrimp 2; Class Soybean 0; Class Tuna 0; Class Walnut 0; Class Wheat 0/1; F001-IgE Egg White <0.10 kU/L; F003-IgE Codfish <0.10 kU/L; F004-IgE Wheat 0.16 kU/L; F010-IgE Sesame Seed <0.10 kU/L; F013-IgE Peanut 0.15 kU/L; F014-IgE Soybean <0.10 kU/L; F017-IgE Hazelnut (Filbert) 4.85 kU/L; F018-IgE Brazil Nut <0.10 kU/L; F020-IgE Almond <0.10 kU/L; F024-IgE Shrimp 0.75 kU/L; F040-IgE Tuna <0.10 kU/L; F041 IgE Salmon <0.10 kU/L; F202-IgE Cashew Nut <0.10 kU/L; F256-IgE Walnut <0.10 kU/L; F338-IgE Scallop <0.10 kU/L; F345-IgE Macadmia Nut <0.10 kU/L
[2024-08-25 09:12] LABS: HBS Num1 22.26 mIU/mL (0-7.99); HBc Num1 0.05 S/CO (0.00-0.79); HBsAGNum1 0.36 S/CO (0.00-0.99); Hepatitis A Antibody IgM 0.26 Index (0-0.79); Hepatitis B Core Antibody Nonreactive (Nonreactive); Hepatitis B Surface Antigen Negative (Negative); ~HepC Num1 0.11 S/CO (0.00-0.79); ~Hepatitis A Antibody IgM Nonreactive (Nonreactive); ~Hepatitis B Surface Antibody REACTIVE (Nonreactive); ~Hepatitis C Antibody Nonreactive (Nonreactive)
[2024-08-26 15:24] LABS: H Pylori Breath Test Negative (Negative)
== END 2024-08-24 13:12 | disposition home or self-care (01) ==
LOC: HO.LAB 13:11
PROVIDERS: Absent Provider Internal Medicine Gastroenterology; PCP Physician Assistant; Visit Provider Physician Assistant
DX: K52.9 Noninfective gastroenteritis and colitis, unspecified (principal); K21.9 Gastro-esophageal reflux disease without esophagitis; K64.9 Unspecified hemorrhoids; E78.00 Pure hypercholesterolemia, unspecified; Z91.018 Allergy to other foods
CPT/HCPCS: 36415; 80053; 80061; 82550; 82607; 82728; 82746; 83013; 84153; 85025; 85027; 85652; 86003; 86140; 86704; 86706; 86709; 86803; 87340; 99211

== ENCOUNTER 2024-08-24 14:51 | Outpatient (AMB) | payer OTHER, SELFPAY ==
--- NOTE | 2024-08-24 15:06 | AM.OFFVISNUR ---
Intake Visit Reasons: H Pylori Allergies fish oil Allergy (Severe, Verified 08/19/24 13:23) Hives diphenhydramine [From Benadryl] Allergy (Verified 08/19/24 13:23) Anaphylaxis trazodone Adverse Reaction (Intermediate, Verified 08/19/24 13:23) erection SEAFOOD Allergy (Severe, Uncoded 08/19/24 13:23) HIVES,SWELLING THROAT Nursing Note Patient presents for collection of H Pylori breath test. Patient has been fasting for 1 hour (nothing to eat, drink, no chewing gum or smoking) has not taken any antacid medication for at least 2 weeks and has no allergies to artificial sweeteners.?? Assessment & Plan Assessment & Plan (1) GERD (gastroesophageal reflux disease): Code(s): K21.9 - Gastro-esophageal reflux disease without esophagitis Category: Medical Plan Patient presents for collection of H Pylori breath test. Patient has been fasting for 1 hour (nothing to eat, drink, no chewing gum or smoking) has not taken any antacid medication for at least 2 weeks and has no allergies to artificial sweeteners.???This test checks for an overgrowth of bacteria in your stomach. We all have bacteria but some may have more than others. It is treatable. if the test comes back negative there is nothing else to do. If the test result is positive we will treat you with 2 antibiotics and a medication to decrease the acid in your stomach (PPI) for 2 weeks. Two weeks after you have completed the treatment we will retest you to make sure the overgrowth has resolved. Patient Instructions: Process for specimen collection and reason for testing was explained to the patient. Specimen collection. Patient instructed to take a deep breath and then exhale into the blue bag, filling it up as much as possible. Patient instructed to drink a mixture of water and the artificial sweetener with a straw. A 15 minute wait period was observed. Patient instructed to take a deep breath and then exhale into the pink bag, filling it up as much as possible Coding Level of Care Code Established Pt Est Pt Level 1 (53100) Patient Type Established Medical Decision Making Straight Forward Diagnoses GERD (gastroesophageal reflux disease) K21.9
== END 2024-08-24 15:07 | disposition home or self-care (01) ==
LOC: HO.HGI 14:52
PROVIDERS: PCP Physician Assistant; Visit Provider Internal Medicine Gastroenterology
DX: K21.9 Gastro-esophageal reflux disease without esophagitis (principal)

== ENCOUNTER 2024-08-25 17:22 | Outpatient (REF) | payer OTHER, SELFPAY ==
[2024-08-30 01:54] LABS: Fecal Fat Qualitative Normal (Normal)
== END 2024-08-25 17:23 | disposition home or self-care (01) ==
LOC: HO.LNP 17:22
PROVIDERS: Visit Provider Internal Medicine Gastroenterology
DX: K52.9 Noninfective gastroenteritis and colitis, unspecified (principal)
CPT/HCPCS: 82705

== ENCOUNTER 2024-08-27 11:42 | Outpatient (REF) | payer OTHER, SELFPAY ==
[2024-08-27 12:17] LABS: Hematocrit 48.4 % (42.0-52.0); Hemoglobin 16.6 g/dl (14.0-18.0); Mean Corpuscular HGB Conc 34.3 g/dl (31.0-36.0); Mean Corpuscular Hemoglobin 31.4 pg (27.0-33.0); Mean Corpuscular Volume 91.5 fL (80.0-98.0); Mean Platelet Volume 10.2 fL (9.4-12.4); Platelet Count 309 X10*3/uL (160-400); Red Blood Count 5.29 X10*6/uL (4.60-5.80); Red Cell Distribution Width 12.6 % (11.0-16.0); White Blood Count 18.3 X10*3/uL (4.8-10.8)
[2024-08-27 12:23] LABS: Estimated Average Glucose 114 mg/dL; Hemoglobin A1c % 5.6 % (<6.0)
--- OUTSIDE RECORDS SUMMARY | 2024-08-27 12:35 | XMS_ITS | Clinical Summary ---
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 Furniture Refinisher Name Role Phone Physician, No Pcp Primary Care Provider Unavaila ble Allergies Active Allergy Reactions Criticality Noted Date Comments Diphenhydramine Hcl Hives 06/06/2024 [place] Oil Hives 06/06/2024 Encounters Date Type Department Care Team Description 06/06/2024 7:58 PM EDT - 06/07/2024 1:24 AM EDT Emergency [facility] Emergency [address] [place] [address] Acute gastritis without hemorrhage, unspecified gastritis type (Primary Dx) Discharge Disposition: Home or Self Care from Last 3 Months Surgical History Surgery Date Site/Laterality Comments APPENDECTOMY CHOLECYSTECTOMY HERNIA REPAIR Medical History Medical History Date Comments Crohn's colitis ([facility] V24, [facility] V28) Social History Tobacco Use [...] Dowd MD on 06/06/2024 22:39:51 Cornelius TAPIA [facility] CT PROCEDURES Final Result * (ABNORMAL) Urinalysis with reflex microscopic and culture (06/06/2024 4:55 PM EDT) Specific [place] Urine 1.034(H) 1.003 - 1.030 LAB URINALYSIS - AUTOMATED METHOD 06/06/2024 6:11 PM [facility] pH, Urine 5.5 5.0 - 8.0 pH LAB URINALYSIS - AUTOMATED METHOD 06/06/2024 6:11 PM [facility] Leukocytes, Urine Trace(A) Negative LAB URINALYSIS - AUTOMATED METHOD 06/06/2024 6:11 PM [facility] Nitrite, Urine Negative Negative LAB URINALYSIS - AUTOMATED METHOD 06/06/2024 6:11 PM [facility] Protein, Urine Trace <=Trace mg/dL LAB URINALYSIS - AUTOMATED METHOD 06/06/2024 6:11 PM [facility] Glucose, Urine Negative Negative mg/dL LAB URINALYSIS - AUTOMATED METHOD 06/06/2024 6:11 PM [facility] Ketones, Urine Trace(A) Negative mg/dL LAB URINALYSIS - AUTOMATED METHOD 06/06/2024 6:11 PM [facility] Urobilinogen , Urine 1.0 0.2 - 1.0 mg/dL LAB URINALYSIS - AUTOMATED METHOD 06/06/2024 6:11 PM [facility] Bilirubin, Urine Negative Negative LAB URINALYSIS - AUTOMATED METHOD 06/06/2024 6:11 PM [facility] Blood, Urine Negative Negative LAB URINALYSIS - AUTOMATED METHOD 06/06/2024 6:11 PM [facility] RBC, Urine 0 0 [...] - 3 /LPF 06/06/2024 6:11 PM EDT [facility] Mucus, Urine Large None /HPF 06/06/2024 6:11 PM EDT [facility] Urine Urine specimen obtained by clean catch procedure / Unknown Non-blood Collection / Unknown 06/06/2024 4:55 PM EDT 06/06/2024 5:01 PM EDT us Tasia Frances DO LAB URINE ORDERABLES Matilda l Result [facility] [address] [place] [address], [place] [phone] * Hernandez urine culture tube (06/06/2024 4:55 PM EDT) Extra Tube Hold for add-ons. 06/06/2024 7:01 PM EDT [facility] Comment:Auto resulted. Urine Urine specimen obtained by clean catch procedure / Unknown Non-blood Collection / Unknown 06/06/2024 4:55 PM EDT 06/06/2024 5:01 PM EDT us Tasia Frances LAB URINE ORDERABLES Matilda l Result Performing Organization Address City/[facility]/ZIP Co de Phone Number [facility] [address] [place] [address], * Culture urine (06/06/2024 4:55 PM EDT) Pathologist [facility] Culture, Urine No growth 06/07/2024 1:29 PM EDT [facility] Urine Urine specimen obtained by clean catch procedure / Unknown Non-blood Collection / Unknown 06/06/2024 4:55 PM EDT 06/06/2024 6:11 PM EDT Tasia Frances DO LAB MICROBIOLOGY - GENERA L ORDERABLES Final Result Performing Organization Address [facility]/ZIP Co de Phone Number [facility] [address] [place] [address], * (ABNORMAL) CBC auto differential (06/06/2024 4:52 PM EDT) [facility] WBC 13.9(H) 4.8 - 10.8 K/mcL LAB HEMETOLOGY METHOD 06/06/2024 5:07 PM EDT [facility] RBC 5.40 4.50 - 5.50 M/[facility] LAB HEMETOLOGY METHOD 06/06/2024 5:07 PM EDT [facility] Hemoglobin 17.5 13.5 - 17.5 g/dL LAB HEMETOLOGY METHOD 06/06/2024 5:07 PM EDT [facility] Hematocrit 49.9 42.0 - 54.0 % LAB HEMETOLOGY METHOD 06/06/2024 5:07 PM EDT [facility] MCV 91.9 79.0 - 98.0 FL LAB HEMETOLOGY METHOD 06/06/2024 5:07 PM EDT [facility] MCH 32.2(H) 27.0 - 32.0 pcg LAB HEMETOLOGY METHOD 06/06/2024 5:07 PM [facility] MCHC 35.1 32.0 - 37.0 g/dL LAB HEMETOLOGY METHOD 06/06/2024 5:07 PM [facility] RDW 12.7 11.0 - 15.0 % LAB HEMETOLOGY METHOD 06/06/2024 5:07 PM [facility] Platelets 331 130 - 400 K/mcL LAB HEMETOLOGY METHOD 06/06/2024 5:07 PM [facility] MPV 10.2 7.0 - 11.0 FL LAB HEMETOLOGY METHOD 06/06/2024 5:07 PM [facility] NRBC 0.0 <1.0 % LAB HEMETOLOGY METHOD 06/06/2024 5:07 PM [facility] NRBC Absolute 0.00 <0.10 K/mcL LAB HEMETOLOGY METHOD 06/06/2024 5:07 PM [facility] Neutrophils Relative 70.5 % LAB HEMETOLOGY METHOD 06/06/2024 5:07 PM [facility] Lymphocytes Relative 19.7 % LAB HEMETOLOGY METHOD 06/06/2024 5:07 PM [facility] Monocytes Relative 8.2 % LAB HEMETOLOGY METHOD 06/06/2024 5:07 PM [facility] Eosinophils Relative 0.7 % LAB HEMETOLOGY METHOD 06/06/2024 5:07 PM [facility] Basophils Relative 0.3 % LAB HEMETOLOGY METHOD 06/06/2024 5:07 PM [facility] Immature Granulocytes Relative 0.6 % LAB HEMETOLOGY METHOD 06/06/2024 5:07 PM [facility] Neutrophils Absolute 9.78(H) 1.50 - 7.00 K/mcL LAB HEMETOLOGY METHOD 06/06/2024 5:07 PM EDT [facility] Lymphocytes Absolute 2.74 1.00 - 5.00 K/mcL LAB HEMETOLOGY METHOD 06/06/2024 5:07 PM EDT [facility] Monocytes Absolute 1.14(H) 0.20 - 1.00 K/mcL LAB HEMETOLOGY METHOD 06/06/2024 5:07 PM EDT [facility] Eosinophils Absolute 0.10 0.00 - 0.50 K/[facility] LAB HEMETOLOGY METHOD 06/06/2024 5:07 PM EDT [facility] Basophils Absolute 0.04 0.00 - 0.20 K/[facility] LAB HEMETOLOGY METHOD 06/06/2024 5:07 PM EDT [facility] Immature Granulocytes Absolute 0.09(H) 0.00 - 0.03 K/[facility] LAB HEMETOLOGY METHOD 06/06/2024 5:07 PM EDT [facility] Blood Venous blood specimen / Unknown Venipuncture / Unknown 06/06/2024 4:52 PM EDT 06/06/2024 5:02 PM EDT us Tasia Frances DO LAB BLOOD ORDERABLES Matilda l Result [facility] [address] [place] [address], * Lipase (06/06/2024 4:52 PM EDT) Lipase 40 13 - 75 unit/L LAB CHEMISTRY METHOD 06/06/2024 5:23 PM EDT [facility] Blood Venous blood specimen / Unknown Venipuncture / Unknown 06/06/2024 4:52 PM EDT 06/06/2024 5:02 PM EDT us Ting Ho Alex Frances DO LAB BLOOD ORDERABLES Matilda l Result [facility] [address] [place] [address], * (ABNORMAL) Comprehensive metabolic panel (06/06/2024 4:52 PM EDT) Sodium 137 133 - 145 mmol/L LAB CHEMISTRY METHOD 06/06/2024 5:29 PM EDT [facility] Potassium 4.6 3.5 - 5.5 mmol/L LAB CHEMISTRY METHOD 06/06/2024 5:29 PM [facility] Chloride 104 96 - 110 mmol/L LAB CHEMISTRY METHOD 06/06/2024 5:29 PM [facility] CO2 28 21 - 32 mmol/L LAB [facility]STR[facility] Anion Gap 5 3 - 11 LAB CHEMISTRY METHOD 06/06/2024 5:29 PM [facility] Glucose 106(H) 70 - 100 mg/dL LAB CHEMISTRY METHOD 06/06/2024 5:29 PM [facility] BUN 9 5 - 25 mg/dL LAB CHEMISTRY METHOD 06/06/2024 5:29 PM [facility] Creatinine 1.05 0.70 - 1.30 mg/dL LAB CHEMISTRY METHOD [facility]/06[facility]24 [facility] eGFR 89 >=60 mL/min/1. 73m2 LAB CHEMISTRY METHOD 06/06/2024 5:29 PM [facility] Comment:Calculation based on the??Chronic Kidney Disease Epidemiology Collaboration (CKD-EPI) equation refit??without adjustment for race. BUN/Creatinine Ratio 8.6 LAB CHEMISTRY METHOD 06/06/2024 5:29 PM [facility] Calcium 9.7 8.5 - 10.5 mg/dL LAB CHEMISTRY METHOD 06/06/2024 5:29 PM EDT [facility] AST (SGOT) 23 10 - 42 unit/L LAB CHEMISTRY METHOD 06/06/2024 5:29 PM EDT [facility] ALT (SGPT) 23 10 - 60 unit/L LAB CHEMISTRY METHOD 06/06/2024 5:29 PM EDT [facility] Alkaline Phosphatase 75 42 - 121 unit/L LAB CHEMISTRY METHOD 06/06/2024 5:29 PM EDT [facility] Total Protein 8.0 6.0 - 8.0 g/dL LAB CHEMISTRY METHOD 06/06/2024 5:29 PM EDT [facility] Albumin 4.3 3.2 - 5.0 g/dL LAB CHEMISTRY METHOD 06/06/2024 5:29 PM EDT [facility] Total Bilirubin 0.7 0.0 - 1.4 mg/dL LAB CHEMISTRY METHOD 06/06/2024 5:29 PM EDT [facility] Blood Venous blood specimen / Unknown Venipuncture / Unknown 06/06/2024 4:52 PM EDT 06/06/2024 5:02 PM EDT Tasia Frances DO LAB BLOOD ORDERABLES Matilda l Result [facility] [address] [place] [address], from Last 3 Months Insurance [facility] Care Teams Furniture Refinisher Relationship Specialty Start Date End Date Physician, No Pcp PCP - General 06/06/24
[2024-08-27 13:25] LABS: Prostate Specific Antigen Scr 1.12 ng/mL (<0.05-4.0)
== END 2024-08-27 11:43 | disposition home or self-care (01) ==
LOC: HO.LAB 11:42
PROVIDERS: PCP Physician Assistant; Visit Provider Physician Assistant
DX: K64.9 Unspecified hemorrhoids (principal); Z12.5 Encounter for screening for malignant neoplasm of prostate; K21.9 Gastro-esophageal reflux disease without esophagitis; R73.01 Impaired fasting glucose
CPT/HCPCS: 36415; 83036; 84153; 85027

== ENCOUNTER → 2024-10-12 15:44 | Outpatient (BNV) | payer OTHER, SELFPAY | PROVIDERS: PCP Physician Assistant; Referring Provider Physician Assistant; Visit Provider Internal Medicine | DX: D72.828 Other elevated white blood cell count (principal) | CPT/HCPCS: 99204 ==

== ENCOUNTER 2024-11-16 10:44 | Emergency (ER) | payer OTHER, SELFPAY ==
--- NOTE | ~2024-11-16 | US_ITS ---
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 Spectral Doppler analysis of the arterial and venous flow were performed in the testes bilaterally. FINDINGS: RIGHT: Right testicle measures 4.7 x 2.7 x 3.0 cm, volume 20 mL. No focal testicular parenchymal lesions are visualized. Spectral Doppler analysis of the arterial and venous flow is documented in the right testis. Right epididymal head is normal in size. No right hydrocele or varicocele is seen. Right epididymal Doppler flow is documented. LEFT: Left testicle measures 4.8 x 2.3 x 2.7 cm, volume 15 mL. On the prior examination, there is a wedge-shaped area of hypoechogenicity measuring 13 x 15 mm. On the current study, there is a concentric hypoattenuating and in the same region that is 3 x 18 mm with minimal blood flow on color Doppler. Spectral Doppler analysis of the arterial and venous flow is present in the remaining portion of the left testis. Left epididymal head and a portion of the body is surgically absent. The tail region is present with increased blood flow. No left hydrocele or varicocele is seen. US/US scrotum doppler IMPRESSION: Normal evolution of a focal infarct in the central and lower region of the left testicle with persistent minimal flow in that region. Epididymis has been surgically resected. A portion of the epididymal tail appears to remain which demonstrates increased blood flow raising question of epididymitis. Electronically signed by: Alok Nur MD 11/16/2024 12:24 PM EDT
--- NOTE | ~2024-11-16 | US_ITS ---
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 Spectral Doppler analysis of the arterial and venous flow were performed in the testes bilaterally. FINDINGS: RIGHT: Right testicle measures 4.7 x 2.7 x 3.0 cm, volume 20 mL. No focal testicular parenchymal lesions are visualized. Spectral Doppler analysis of the arterial and venous flow is documented in the right testis. Right epididymal head is normal in size. No right hydrocele or varicocele is seen. Right epididymal Doppler flow is documented. LEFT: Left testicle measures 4.8 x 2.3 x 2.7 cm, volume 15 mL. On the prior examination, there is a wedge-shaped area of hypoechogenicity measuring 13 x 15 mm. On the current study, there is a concentric hypoattenuating and in the same region that is 3 x 18 mm with minimal blood flow on color Doppler. Spectral Doppler analysis of the arterial and venous flow is present in the remaining portion of the left testis. Left epididymal head and a portion of the body is surgically absent. The tail region is present with increased blood flow. No left hydrocele or varicocele is seen. US/US scrotum IMPRESSION: Normal evolution of a focal infarct in the central and lower region of the left testicle with persistent minimal flow in that region. Epididymis has been surgically resected. A portion of the epididymal tail appears to remain which demonstrates increased blood flow raising question of epididymitis. Electronically signed by: Alok Nur MD 11/16/2024 12:24 PM EDT
--- NOTE | ~2024-11-16 | CT_ITS ---
EXAMINATION: CT ABDOMEN AND PELVIS WITH CONTRAST CLINICAL INFORMATION: Left lower abdominal pain. COMPARISON: None available. TECHNIQUE: Multidetector volumetric images were obtained from the superior aspect of the liver through the pubic symphysis following administration 85 mL of Omnipaque 350 intravenous contrast. Sagittal and coronal reformatted images were obtained on the technologist's workstation. Oral contrast: No This CT examination was performed using dose optimization techniques as appropriate, variously including the following: *Automated exposure control *Adjustment of mA and/or kV according to patient size (this includes techniques or standardized protocols for targeted exams where dose is matched to indication/reason for exam; i.e. extremities or head) *Use of iterative reconstruction technique FINDINGS: LUNG BASES: 7 mm right lower lobe nodule, unchanged from numerous prior exams dating back to 2017. This is benign. Lung bases otherwise clear. LIVER, GALLBLADDER, AND BILIARY TREE: The liver is normal in size, shape, and demonstrates diffuse fatty infiltration. No focal hepatic lesion or biliary ductal dilatation is present. The gallbladder is surgically absent. PANCREAS: Unremarkable. SPLEEN: Unremarkable. ADRENAL GLANDS: Unremarkable. KIDNEYS AND URETERS: The kidneys are normal in size, shape, and attenuation. No hydronephrosis, hydroureter, or calculi seen. No perinephric stranding. BLADDER: Unremarkable. GASTROINTESTINAL TRACT: The stomach is decompressed. The duodenum appears normal. The small bowel is normal in caliber and course. There is no wall thickening, obstruction, or inflammation. There is no CT evidence of acute appendicitis. The colon is largely decompressed, mildly limiting evaluation for wall thickening. There may be mild wall thickening and a mild colitis is not excluded. There no significant rectal wall thickening noted. ABDOMINAL WALL: No significant hernia is appreciated. LYMPH NODES: There is no abnormal lymphadenopathy. VASCULAR: Unremarkable. PELVIC VISCERA: The prostate and seminal vesicles are unremarkable. OSSEOUS STRUCTURES: There is no suspicious lytic or blastic bone lesion. Spinal degenerative changes, mild, most significant at L5-S1. Mild hip joint degenerative changes. CT/CT abdomen pelvis w IV con IMPRESSION: 1. No acute findings in the abdomen or pelvis. 2. Diffuse fatty infiltration of liver. 3. Cholecystectomy. 4. The majority of the colon is decompressed, limiting evaluation for wall thickening. There may be mild diffuse wall thickening present. A mild colitis is a possibility. Correlate for signs and symptoms. Electronically signed by: Cornelius Engel MD 11/16/2024 04:31 PM EDT
[2024-11-16 10:45] VITALS: BP 124/66; PULSE 67; RESP 18; TEMP 36.6; O2SAT 98; BMI 28.2
--- NOTE | 2024-11-16 11:08 | ED.MALEGU ---
HPI - Male Genitourinary General Chief complaint: Urogenital-Male Stated complaint: Abd pain Time Seen by Provider: 11/16/24 13:20 Source: patient, RN notes reviewed and old records reviewed Mode of arrival: ambulatory Limitations: no limitations History of Present Illness ED Provider: Sherwin VALENTE Narrative: 48-year-old male with past medical history significant for Crohn's disease, chronic testicular pain, epididymitis, anxiety, PTSD, hyperlipidemia presents for evaluation of left testicular pain. Patient reports that his pain started about 2-1/2 weeks ago after lifting heavy furniture. His pain had been getting gradually worse. He does not have any known history of inguinal hernias. His pain is worse with movement and is 10/10. In December of 2023 he had the head was epididymitis removed due to chronic testicular pain and chronic epididymitis. The patient reports that he has had intermittent pains in the area ever since. He reports he has not been sexually active in 3 years Denies any urethral discharge He had has some nausea and vomiting today due to the pain. He reports he had blood in his stool yesterday but had normal bowel movement today He reports in his last colonoscopy was a few months ago at [facility] Related Data Previous Rx's ?Medication ?Instructions ?Recorded acetaminophen 300 mg-codeine 30 mg 1 tab PO Q8H PRN pain 4 days #12 07/12/24 tablet tabs fexofenadine 180 mg tablet 180 mg PO DAILY 90 days #90 tabs 07/12/24 (Kim Allergy) nicotine 21 mg/24 hr daily 1 patch transdermal DAILY 14 days 07/12/24 transdermal patch #14 ea famotidine 40 mg tablet 40 mg PO BEDTIME 90 days #90 tabs 07/25/24 alfuzosin 10 mg tablet,extended 10 mg PO BEDTIME 90 days #90 tabs 08/11/24 release 24 hr mirtazapine 15 mg tablet 15 mg PO BEDTIME 30 days #30 tabs 09/13/24 esomeprazole magnesium 40 mg 40 mg PO DAILY #90 caps 09/20/24 capsule,delayed release sucralfate 100 mg/mL oral 10 ml PO QID #1,000 mL 10/07/24 suspension fluticasone propionate 50 2 spray intranasal DAILY #32 mL 10/28/24 mcg/actuation nasal spray,suspension albuterol sulfate 90 mcg/actuation 2 puff inhalation Q4-6H PRN 11/13/24 aerosol inhaler (Ventolin HFA) shortness of breath or wheezing 30 days #8.5 grams levofloxacin 750 mg tablet 750 mg PO Q24H #5 tabs 11/16/24 oxycodone 5 mg tablet 5 mg PO QID PRN severe pain (scale 11/16/24 score 7-10) #14 tabs Allergies Allergy/AdvReac Type Severity Reaction Status Date / Time fish oil Allergy Severe Hives Verified 11/16/24 10:47 diphenhydramine (From Allergy Anaphylaxis Verified 11/16/24 10:47 Benadryl) trazodone AdvReac Intermediate erection Verified 11/16/24 10:47 SEAFOOD Allergy Severe HIVES,SWELLING Uncoded 11/16/24 10:47 THROAT Review of Systems Constitutional: Constitutional: Denies body ache(s), Denies chills and Denies fever(s) ENT: Denies vertigo and Denies dizziness Cardiovascular: Cardiovascular: Denies chest pain and Denies dyspnea on exertion Respiratory: Respiratory: Denies cough and Denies dyspnea on exertion Gastrointestinal: Gastrointestinal: Denies abdominal pain, Denies nausea and Denies vomiting Genitourinary: Genitourinary: Reports genital pain, Denies dysuria, Denies penile discharge, Denies scrotal swelling, Reports testicular mass, Reports testicular pain and Denies urinary frequency Musculoskeletal: Musculoskeletal: Denies back pain Integumentary/Breasts: Skin/Breast: Denies rash Neurologic: Denies vertigo and Denies dizziness Psychiatric: Psychiatric: Denies anxiety PMF Past Medical History Medical History GERD (gastroesophageal reflux disease) Smoker Surgical History Hx of endoscopy History of colonoscopy Hx of cholecystectomy H/O knee surgery History of appendectomy History of hand surgery History of laparoscopic cholecystectomy (~11/2019) Family History Family History Mother Hepatitis C Hypertension Diabetes Father Hepatitis C Hypertension Cancer Paternal Grandfather History of prostate cancer Hypertension Sister Diabetes Maternal Aunt Brain cancer Paternal Uncle History of prostate cancer Social History Social History Household Members: Children Housing: House Are you a primary healthcare architect to a significant other at home: No Do you presently have visiting nurse or other home services: No Alcohol intake: never Patient Tobacco Use Status: Current everyday Tobacco user Tobacco use type: Cigarette e-Cigarette/Vaping Use: Never Used Use of substances other than those prescribed or required for medical reasons: No Substance Use Type: Marijuana Advance Directives: Yes Advance Directives Information Provided: Yes Advance Directives on File: No Do you have a plan to hurt others: No Plan service: No Current occupational status: unemployed 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 Cognitive needs: No Hearing needs: No Vision needs: No Physical Exam Vital Signs: Vital Signs: Last Vital Signs Temp 98.1 F 11/16/24 17:04 Pulse 59 11/16/24 17:04 Resp 16 11/16/24 17:04 BP 112/65 11/16/24 17:04 Pulse Ox 98 11/16/24 17:04 O2 Del Method Room Air 11/16/24 17:04 BMI result Body Mass Index 28.2 Const: General: healthy appearing, comfortable, no acute distress, alert and awake Nutritional Appearance: well nourished Orientation/consciousness: patient oriented x3 HEENT: Head: Yes normocephalic and Yes atraumatic Eyes: Eyelids: Yes eyelids normal Conjunctivae: conjunctivae normal Sclerae: sclerae normal Corneas: corneas normal Pupils: Equal, round and reactive pupils present EOM: EOMs intact bilaterally Neck: Neck: Yes full ROM Resp: Effort & Inspection: normal respiratory effort, able to speak in complete sentences and not labored GI: Other: No obvious palpable inguinal hernia on exam Inspection: No distended Palpation (GI): Soft to palpation, not firm, nontender, no guarding and not rigid : Penis: normal penis Meatus: meatus normal and no meatla discharge Testes: abnormal, abnormal epididymides and testicular tenderness (Left posterior) Skin: General skin exam: elasticity normal Neuro: General: patient oriented x3 Cranial nerves: Yes Equal, round and reactive pupils present and Yes Bilaterally intact EOM present Cognition (Neuro): normal cognition Course Course Course Narrative: This is a Rapid Medical Examination (RME) performed by Cherelle Abreu PA-C in triage. Full HPI, ROS, assessment and treatment plan per primary provider in the Main ED. Hx: 48 yo M here for eval of abd pain and L testicular pain x2 wks. assoc N/V, melena x2. reports bright red blood in stool yesterday. no thinners. Plan: labs, US, OBS Reevaluation(s) Reevaluation #1: I again discussed with Dr. Rosario after the CT result which does not show any acute abnormalities to explain the patient's pain. Dr. Rosario recommends discharge with Levaquin to cover epididymitis. We will discharge the patient with oral oxycodone for pain. The patient is requesting an orchiectomy and Dr. Rosario will discuss this with the patient as an outpatient. Rectal examination ultimately deferred by patient as his blood counts are stable, he has known Crohn's disease and he will follow up with GI Time: 17:24 Medications Administered Discontinued Medications Generic Name Dose Route Start Last Admin Trade Name Freq PRN Reason Stop Dose Admin Hydromorphone HCl 1 mg 11/16/24 16:44 11/16/24 17:03 Hydromorphone Hcl 1 Mg/Ml Syringe IVPUSH 11/16/24 16:45 1 mg ONCE ONE Administration Protocol Morphine Sulfate 4 mg 11/16/24 14:09 11/16/24 14:16 Morphine Sulfate 4 Mg/Ml Cartridge IVPUSH 11/16/24 14:10 4 mg ONCE ONE Administration Protocol Ondansetron HCl 4 mg 11/16/24 14:09 11/16/24 14:16 Ondansetron Hcl 4 Mg/2 Ml Vial IVPUSH 11/16/24 14:10 4 mg ONCE ONE Administration Medical Decision Making Medical Decision Making [facility] Narrative: 48-year-old male presents for evaluation of left lower abdominal and testicular pain. His pain started 2 weeks ago after heavy lifting but he has known obvious inguinal hernia on exam. Denies any difficulty urinating. He does have some reported bloody stool and a history of Crohn's, he could have a Crohn's flare but this should not cause testicular pain. Testicular ultrasound was ordered which shows evolving area of focal infarct in the sent her in the region of the left testicle with persistent minimal flow in the region. Epididymitis has been surgically removed but a portion of the epididymal tail remains it appears to demonstrate increased blood flow raising concern for epididymitis. However clinically the patient has not had sexual intercourse for several years. Therefore acute epididymitis is not favored to be as likely. These findings may be related to chronic changes. Given his level discomfort I ordered a CT scan of the abdomen pelvis with IV contrast and I also consulted with Urology, Dr. Rosario who performed the patient's surgery. Currently awaiting CT results. Differential Diagnosis Differential Diagnoses: The differential diagnosis associated with the presentation includes Chronic testicular pain Chronic epididymitis Testicular torsion less likely Inguinal hernia Incarcerated hernia Diverticulitis Crohn's flare Consult Healthcare Provider Management of the patient was discussed with: Gasket Winder Lab Data MDM Lab Attestation statement: I reviewed the patient's lab results. Mild leukocytosis to 15.4 with a left shift. No significant anemia. Normal platelet count. No significant electrolyte abnormalities warranting intervention. Renal function within normal limits. 11/16/24 11:01 11/16/24 11:01 Labs: Lab Results 11/16/24 11/16/24 Range/Units 11:01 14:00 WBC 15.4 H (4.8-10.8) X10*3/uL RBC 4.98 (4.60-5.80) X10*6/uL Hgb 16.1 (14.0-18.0) g/dl Hct 45.6 (42.0-52.0) % MCV 91.6 (80.0-98.0) fL MCH 32.3 (27.0-33.0) pg MCHC 35.3 (31.0-36.0) g/dl RDW 12.5 (11.0-16.0) % Plt Count 290 (160-400) X10*3/uL MPV 9.9 (9.4-12.4) fL Immature Gran % (Auto) 0.4 (0.0-0.4) % Neut % (Auto) 79.7 H (45-73) % Lymph % (Auto) 13.2 L (20-40) % Stearns % (Auto) 6.2 (2-11) % Eos % (Auto) 0.3 (0-4) % Baso % (Auto) 0.2 (0-2) % Lymph # (Auto) 2.0 (1.2-4.9) X10*3/uL Stearns # (Auto) 1.0 (0.1-1.2) X10*3/uL Eos # (Auto) 0.0 (0.0-0.4) X10*3/uL Baso # (Auto) 0.0 (0.0-0.2) X10*3/uL Abs Immat Gran (auto) 0.06 H (0.00-0.03) X10*3/uL Absolute Neuts (auto) 12.3 H (2.0-8.3) x10*3/uL Absolute Nucleated RBC 0.000 (0.0-0.012) X10*3/uL Nucleated RBC % (auto) 0.0 (0.0-0.2) /100WBC Sodium 142 (135-145) mmol/L Potassium 4.0 (3.3-5.1) mmol/L Chloride 106 (96-108) mmol/L Carbon Dioxide 30 H (22-29) mmol/L Anion Gap 10 L (12-20) BUN 10 (9-16) mg/dL Creatinine 0.95 (0.5-1.4) mg/dL Estim Creat Clear Calc 99.3 Estimated GFR > 60 Random Glucose 111 (60-115) mg/dL Calcium 9.1 (8.4-10.2) mg/dL Total Bilirubin 0.7 (0.0-1.0) mg/dL Direct Bilirubin 0.2 (0.0-0.5) mg/dL AST 29 (5-37) U/L ALT 23 (0-40) U/L Alkaline Phosphatase 65 (39-117) U/L Total Protein 7.2 (6.5-8.0) g/dL Albumin 4.5 (3.5-5.0) g/dL Lipase 23 (8-78) U/L Ur N gonorrhoeae DNA (PCR) NOT DETECTED (Not Detect.) Ur Chlamydia DNA (PCR) NOT DETECTED (Not Detect.) Radiology Impression Discussion of test interpretation with radiology: I have reviewed the radiologist's reading. Radiologist Impression: FINDINGS: RIGHT: Right testicle measures 4.7 x 2.7 x 3.0 cm, volume 20 mL. No focal testicular parenchymal lesions are visualized. Spectral Doppler analysis of the arterial and venous flow is documented in the right testis. Right epididymal head is normal in size. No right hydrocele or varicocele is seen. Right epididymal Doppler flow is documented. LEFT: Left testicle measures 4.8 x 2.3 x 2.7 cm, volume 15 mL. On the prior examination, there is a wedge-shaped area of hypoechogenicity measuring 13 x 15 mm. On the current study, there is a concentric hypoattenuating and in the same region that is 3 x 18 mm with minimal blood flow on color Doppler. Spectral Doppler analysis of the arterial and venous flow is present in the remaining portion of the left testis. Left epididymal head and a portion of the body is surgically absent. The tail region is present with increased blood flow. No left hydrocele or varicocele is seen. US/US scrotum doppler IMPRESSION: Normal evolution of a focal infarct in the central and lower region of the left testicle with persistent minimal flow in that region. Epididymis has been surgically resected. A portion of the epididymal tail appears to remain which demonstrates increased blood flow raising question of epididymitis. Electronically signed by: Alok Nur MD 11/16/2024 12:24 PM EDT RP Discharge Plan Discharge Clinical Impression: Chronic epididymitis Patient Disposition: Home, Self-Care Instructions: Epididymitis (ED) Additional Instructions: You may take oxycodone as needed for severe breakthrough pain. This may make you drowsy, do not drink alcohol or drive after taking it. Take Levaquin daily for the next 5 days. You may also use ibuprofen and Tylenol for discomfort. Follow up with Dr. Rosario, urology as planned [facility] will be contacting you within 2 business?days after being discharged from the Emergency?Department.? During this?phone call, they will inform you when your follow up appointment will be scheduled. If you have not received a call from [facility] after 2 business?days, please call the?office at [phone]. Prescriptions: New levofloxacin 750 mg tablet 750 mg PO Q24H Qty: 5 0RF oxycodone 5 mg tablet 5 mg PO QID PRN (Reason: severe pain (scale score 7-10)) Qty: 14 0RF Rx Instructions: Partial Fill upon patient request. No Action famotidine 40 mg tablet 40 mg PO BEDTIME 90 Days Qty: 90 1RF mirtazapine 15 mg tablet 15 mg PO BEDTIME 30 Days Qty: 30 3RF esomeprazole magnesium 40 mg capsule,delayed release(DR/EC) 40 mg PO DAILY Qty: 90 1RF Rx Instructions: do not start till after breath test sucralfate 100 mg/mL suspension 10 ml PO QID Qty: 1000 1RF fluticasone propionate 50 mcg/actuation spray,suspension 2 spray intranasal DAILY Qty: 32 0RF albuterol sulfate [Ventolin HFA] 90 mcg/actuation HFA aerosol inhaler 2 puff inhalation Q4-6H PRN (Reason: shortness of breath or wheezing) 30 Days Qty: 8.5 3RF fexofenadine [Kim Allergy] 180 mg tablet 180 mg PO DAILY 90 Days Qty: 90 1RF acetaminophen-codeine 300-30 mg tablet 1 tab PO Q8H PRN (Reason: pain) 4 Days Qty: 12 0RF nicotine 21 mg/24 hr patch 24 hour 1 patch transdermal DAILY 14 Days Qty: 14 0RF alfuzosin 10 mg tablet extended release 24 hr 10 mg PO BEDTIME 90 Days Qty: 90 1RF Rx Instructions: Take before bedtime Referrals: Yuniel Rosario MD [Physician, Urology] Referral Note: chronic epididymitis Print Language: Sudanese
[2024-11-16 11:10] LABS: MANUAL DIFF FLAG NO
[2024-11-16 11:13] LABS: Hematocrit 45.6 % (42.0-52.0); Hemoglobin 16.1 g/dl (14.0-18.0); Imm Gran Abs Auto 0.06 X10*3/uL (0.00-0.03); Imm Gran Pct Auto 0.4 % (0.0-0.4); Lymphocytes Absolute Auto 2.0 X10*3/uL (1.2-4.9); Mean Corpuscular HGB Conc 35.3 g/dl (31.0-36.0); Mean Corpuscular Hemoglobin 32.3 pg (27.0-33.0); Mean Corpuscular Volume 91.6 fL (80.0-98.0); NRBC Abs Auto 0.000 X10*3/uL (0.0-0.012); NRBC Pct Auto 0.0 /100WBC (0.0-0.2); Platelet Count 290 X10*3/uL (160-400); Red Blood Count 4.98 X10*6/uL (4.60-5.80); White Blood Count 15.4 X10*3/uL (4.8-10.8)
[2024-11-16 11:43] LABS: Alanine Aminotransferase 23 U/L (0-40); Albumin Level 4.5 g/dL (3.5-5.0); Alkaline Phosphatase 65 U/L (39-117); Anion Gap 10 (12-20); Aspartate Amino Transferase 29 U/L (5-37); Blood Urea Nitrogen 10 mg/dL (9-16); Calcium 9.1 mg/dL (8.4-10.2); Carbon Dioxide 30 mmol/L (22-29); Chloride 106 mmol/L (96-108); Creatinine Clr Calc Pharmacy 99.3; Estimated Glomerular Filt Rate > 60; Lipase 23 U/L (8-78); Potassium 4.0 mmol/L (3.3-5.1); Sodium 142 mmol/L (135-145); Total Protein 7.2 g/dL (6.5-8.0)
--- OUTSIDE RECORDS SUMMARY | 2024-11-16 12:38 | XMS_ITS | Clinical Summary ---
Author Organization [facility] Address [address] [place] [address] Phone Care Team Providers Care Risk Management Director Name Role Phone Yonatan Good Primary Care Provider + Allergies Active Allergy Reactions Criticality Noted Date Comments Diphenhydramine Hcl Hives 06/06/2024 Phs Other Free Text-See Phs Viewer 1 05/20/2010 BENADRYL-RASH Shellfish Containing Products 2024 [place] Medications albuterol 90 mcg/actuation inhaler Inhale 2 puffs into the lungs every 6 (six) hours as needed for wheezing. Active ondansetron (ZOFRAN-ODT) 4 MG disintegrating tablet Take 1 tablet (4 mg total) by mouth every 8 (eight) hours as needed for nausea. 10 tablet 1 Active ondansetron (ZOFRAN-ODT) 4 MG disintegrating tablet (To-Go) Take 1-2 tablet(s) by mouth every 8 hours as needed for nausea/vomi ting 6 tablet 5 Active sucralfate (CARAFATE) 100 mg/mL suspension Take 10 mL (1 g total) by mouth 3 (three) times a day with meals. 414 mL 5 Active Social History Tobacco Use Types Packs/Day Years Used Date Smoking Tobacco: Smoker, Current Status Unknown Education Answer Date Recorded Are you interested in more education? Not on dmitri e 08/11/2022 Are you concerned about learning? Not on file 08/11/2022 No 08/11/2022 No 08/11/2022 Digital Access Answer Date Recorded No 08/25/2022 No 08/25/2022 No 08/25/2022 Reliable internet access at home? Not on file 08/25/2022 Device with a working camera? Not on file Intimate Partner Violence Answer Date R ecorded Are you denied basic needs s uch as food, clothing, or medical care? No 06/08/2024 In the past 12 months have y ou been in a relationship with a person who hurts, threatens, or tries to control you? No 06/08/2024 Are you denied basic needs s uch as food, clothing, or medical care? No 06/08/2024 In the past 12 months have y ou been in a relationship with a person who hurts, threatens, or tries to control you? No 06/08/2024 Sex and Gender Information Value Date Recorded Sex Assigned at Not on file Legal Sex Male 5:30 PM EST Gender Identity Choose not to disclose 10:41 PM EDT Sexual Orientation Not on file Last Filed Vital Signs Vital Sign Reading Time Taken Comments Blood Pressure 101/71 06/09/2024 1:59 AM EDT Pulse 60 06/09/2024 1:59 AM EDT Temperature 36.6 C (97.9 F) 06/09/2024 1:59 AM EDT Respiratory Rate 16 06/09/2024 1:59 AM EDT Oxygen Saturation 100% 06/09/2024 1:59 AM EDT Inhaled Oxygen Concentration - - Weight 83 kg (183 lb) 06/08/2024 9:53 PM EDT Height 170.2 cm (5' 7 ) 06/08/2024 9:53 PM EDT Body Mass Index 28.66 06/08/2024 9:53 PM EDT Plan of Treatment Health Maintenance Due Date Last Done Comments LIPID PANEL 1977 DEPRESSION SCREENING 1989 SMOKING Hx and SMOKELESS TOBACCO SCREENING 1990 HEPATITIS C SCREENING 12/10/1995 PNEUMOCOCCAL VACCINES (0-49 years) (2 of 2 - PCV) 10/25/2016 10/26/2015 COLOGUARD 2022 COLONOSCOPY 2022 COLORECTAL CANCER SCREENING 2022 FIT TEST 2022 FOBT 2022 SIGMOIDOSCOPY 2022 VIRTUAL COLONOSCOPY 2022 COVID-19 VACCINE (1 - 2024-2 5 season) 2023 Adult Td,Tdap Booster 09/14/2025 09/15/2015 , 11/18/2011 SCREENING FOR DIABETES 06/09/2027 06/08/2024 HIV ONE-TIME SCREENING (18-6 5 YEARS) Completed 09/21/2008 HEPATITIS A VACCINES Aged Out No long er eligible based on patient's age to complete this topic HIB VACCINES Aged Out No longer eligi ble based on patient's age to complete this topic MENINGOCOCCAL VACCINES (ACWY) Aged Out No longer eligible based on patient's age to complete this topic MENINGOCOCCAL VACCINES (B) Aged Out N o longer eligible based on patient's age to complete this topic Medical Devices Not on file Insurance [address] [place] [address] [place] [address] [address] [place] [address] [address] [place] [address] [address] [place] [address] [place] [address] [place] [address] [place] [address] [address] [place] [phone] [place] [address] [address] [place] [phone] [place] [address] ACO Care Teams Risk Management Director Relationship Specialty Start Date End Date Yonatan Good PA [facility] [place] [address] PCP - General 10/14/20 Additional Source Comments The information contained in this document represents components of the legal health record. It is not the complete legal health record.[facility]
--- OUTSIDE RECORDS SUMMARY | 2024-11-16 12:38 | XMS_ITS | Clinical Summary ---
Author Organization [facility] Address [address] [place] [address] Phone Care Team Providers Care Paint Crew Supervisor Name Role Phone Physician, No Pcp Primary Care Provider Unavaila ble Allergies Active Allergy Reactions Criticality Noted Date Comments Diphenhydramine Hcl Hives 06/06/2024 [place] Oil Hives 06/06/2024 Surgical History Surgery Date Site/Laterality Comments APPENDECTOMY CHOLECYSTECTOMY HERNIA REPAIR Medical History Medical History Date Comments Crohn's colitis ([facility] V24, [facility] V28) Social History Tobacco Use Types [...] 66 06/07/2024 12:14 AM EDT Temperature 37.1 C (98.8 F) 06/07/2024 12:14 AM EDT Respiratory Rate 16 06/07/2024 12:14 AM EDT [...] 1996 COVID-19 Vaccine (2023-2 5 season) 2023 Depression Screening 03/31/2024 Cholesterol Screening (Lipid Panel) 06/06/2024 Colorectal Cancer Screening: Colonoscopy 06/06/2024 HIV Screening 06/06/2024 Hepatitis C Screening 06/06/2024 Social Influencers of Health Screening 06/06/2024 Influenza Vaccine (#1) 2024 DTaP,Tdap,and Td Vaccines (3 - Td or Tdap) 09/14/2025 09/15/2015, 11/18/2011 Pneumococcal Vaccine: Pediatrics (0 to 5 Years) and At-Risk Patients (6 to 49 Years) Aged Out 10/26/2015 No longer eligible [...] on patient's age to complete this topic Insurance [facility] [employer] Care Teams Paint Crew Supervisor Relationship Specialty Start Date End Date Physician, No Pcp PCP - General 06/06/24
[2024-11-16 13:45] VITALS: BP 117/75; PULSE 58; RESP 18; TEMP 36.7; O2SAT 97
[2024-11-16 15:34] LABS: CT PCR Urine NOT DETECTED (Not Detect.); NG PCR Urine NOT DETECTED (Not Detect.)
[2024-11-16 17:04] VITALS: BP 112/65; PULSE 59; RESP 16; TEMP 36.7; O2SAT 98
[2024-11-16 17:14] LABS: Appearance Urine Clear; Glucose Urine UA Negative (Negative); PH 7.0 (5.0-9.0); Specific Gravity - Urine >= 1.030 (1.005-1.025)
[2024-11-16 18:01] VITALS: BP 109/59; PULSE 65; RESP 16; TEMP 36.7; O2SAT 98
== END 2024-11-16 18:02 | disposition home or self-care (01) ==
PROVIDERS: Physician Assistant Medical; Emergency Provider Emergency Medicine; PCP Physician Assistant
DX: N45.1 Epididymitis (principal); N50.82 Scrotal pain; R10.30 Lower abdominal pain, unspecified
CPT/HCPCS: 36415; 74177; 76870; 80048; 80076; 81003; 83690; 85025; 87491; 87591; 93975; 96374; 96375; 99284; J1171; J2270; J2405

== ENCOUNTER → 2024-11-16 11:09 | Outpatient (BNV) | payer OTHER, SELFPAY | PROVIDERS: PCP Physician Assistant; Visit Provider Radiology Diagnostic Radiology | DX: R10.32 Left lower quadrant pain (principal); N50.82 Scrotal pain | CPT/HCPCS: 74177 ==

== ENCOUNTER 2024-11-24 13:55 | Outpatient (AMB) | payer OTHER, SELFPAY ==
--- NOTE | 2024-11-24 14:09 | A.OFFVIS_ITS ---
Intake Visit Reasons: epidimyitis 2 wk Intake Note: Patient is present for ER follow up for chronic epididymitis Urology Medication:ALFUZOSIN Antibiotic Allergy:NONE Blood Thinner:NONE Customer Contact Specialist Required: No Accompanied by: Self / Same As Patient Allergies fish oil Allergy (Severe, Verified 11/16/24 10:47) Hives diphenhydramine (From Benadryl) Allergy (Verified 11/16/24 10:47) Anaphylaxis trazodone Adverse Reaction (Intermediate, Verified 11/16/24 10:47) erection SEAFOOD Allergy (Severe, Uncoded 11/16/24 10:47) HIVES,SWELLING THROAT HPI Comments Details: Juan C is a pleasant 47-year-old male. He is a patient of Dr. Good. He seen for the following urologic conditions - cystitis - left epididymitis Has recurrent scarring running all the way along the vasa from the inguinal canal down to the testicle Testicle is not painful however vasal structures are painful and the cord itself is markedly thickened Appears to be a continuation of his chronic inflammatory process Recommend left orchiectomy with removal of the cord structures Reassured him that he has bilateral testicles and his normal production of testosterone would remain as well as his ability to get erections Left epididymitis with scarring Persistent pain On exam scarring through the tail of the epididymis 01/21 left epididymectomy Pathology - fibrous nodule demonstrates dense collagen stroma with mild chronic inflammation 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 This lesion is considered to represent a benign reactive fibrous proliferation in response to a previous infection or trauma Cystitis Seen on imaging Persistent microscopic hematuria PFSH Medical History GERD (gastroesophageal reflux disease) Smoker Surgical History Hx of endoscopy History of colonoscopy Hx of cholecystectomy H/O knee surgery History of appendectomy History of hand surgery History of laparoscopic cholecystectomy (~11/2019) Family History Mother Hepatitis C Hypertension Diabetes Father Hepatitis C Hypertension Cancer Paternal Grandfather History of prostate cancer Hypertension Sister Diabetes Maternal Aunt Brain cancer Paternal Uncle History of prostate cancer Social History Household Members: Children Housing: House Are you a primary pulmonary care nurse to a significant other at home: No Do you presently have visiting nurse or other home services: No Alcohol intake: never Patient Tobacco Use Status: Current everyday Tobacco user Tobacco use type: Cigarette e-Cigarette/Vaping Use: Never Used Substance Use Type: Marijuana service: No Current occupational status: unemployed 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 Cognitive needs: No Hearing needs: No Vision needs: No Review of Systems Const Denies chills and Denies fever(s) Card Reports no additional complaints and Denies syncope Resp Denies cough GI Denies abdominal pain and Denies heartburn Reports as per HPI and Denies change in libido Neuro Denies syncope Psych Denies change in libido Endo Denies change in libido Physical Exam Const General: cooperative, healthy appearing, comfortable and no acute distress Orientation/consciousness: patient oriented x3 HEENT Face and sinus: Yes normal facial exam Mouth: moist mucous membranes Neck Neck: Yes normal visual inspection, Yes full ROM and Yes trachea midline Chest Chest palpation & inspection: normal inspection of the chest Resp Effort & Inspection: normal respiratory effort, able to speak in complete sentences and no respiratory distress GI Inspection: Yes normal to inspection Back/Spine/Pelvis Cervical Spine: normal cervical lordosis Thoracic/Lumbar Spine: thoracic and lumbar spine normal to inspection Skin General skin exam: no rashes or lesions noted Neuro General: patient oriented x3, gait normal, tone normal and moves all extremities Extrem General: Yes normal to inspection and Yes capillary refill normal Assessment & Plan Assessment & Plan (1) Epididymitis: Code(s): N45.1 - Epididymitis Category: Medical Plan Risks, benefits and alternatives to therapy were discussed. These include but are not limited to infection, bleeding, damage to local organs and tissues, need for further interventions. Anesthetic risks regarding cardiac arrhythmia, blood clots, and potential mortality were discussed. The patient understands the typical recovery time and the outpatient nature of the procedure. After consideration of these risks the patient gives full informed consent and they wish to move ahead with the procedure. - left orchiectomy Patient Instructions: This note is constructed using voice recognition software. While every effort has been made to ensure accuracy line patroller errors may have been included. Imaging studies, laboratory and physical exam results were discussed and reviewed in detail. No major barriers to patient understanding were identified. An opportunity to ask questions regarding the treatment plan was provided. All questions were answered. The patient expressed understanding and agreement with the above treatment plan. The patient is aware they should contact our office by phone for worsening of their current condition or the appearance of new urologic symptoms. Compliance is encouraged with any medications and followup testing that is ordered. It is a privilege to participate in the urologic care of your patient. If you have any questions or concerns regarding treatment for the above conditions, or other urologic issues, please do not hesitate to contact me. The office telephone contact is [phone]. Sincerely, Dr Yuniel Rosario MD, SUE [facility] - Urology Compassionate Specialist Care for the Genitourinary System Coding Level of Care Code Est Pt Level 4 (64685) Diagnoses Epididymitis N45.1
--- OUTSIDE RECORDS SUMMARY | 2024-11-24 14:47 | XMS_ITS | Clinical Summary ---
Author Organization [facility] Address [address] [place] [address] Phone Care Team Providers Care Ecommerce Analyst Name Role Phone Physician, No Pcp Primary Care Provider Unavaila ble Allergies Active Allergy Reactions Criticality Noted Date Comments Diphenhydramine Hcl Hives 06/06/2024 [place] Oil Hives 06/06/2024 Surgical History Surgery Date Site/Laterality Comments APPENDECTOMY CHOLECYSTECTOMY HERNIA REPAIR Medical History Medical History Date Comments Crohn's colitis ([facility] V24, [facility] V28) Social History Tobacco Use Types [...] patient's age to complete this topic Insurance [facility] [employer] Care Teams Ecommerce Analyst Relationship Specialty Start Date End Date Physician, No Pcp PCP - General 06/06/24
--- OUTSIDE RECORDS SUMMARY | 2024-11-24 14:48 | XMS_ITS | Clinical Summary ---
Author Organization [facility] Address [address] [place] [address] Phone Care Team Providers Care Car Supplier Name Role Phone Yonatan Good Primary Care Provider + Allergies Active Allergy Reactions Criticality Noted Date Comments Diphenhydramine Hcl Hives 06/06/2024 Phs Other Free Text-See Phs Viewer 1 05/20/2010 BENADRYL-RASH Shellfish Containing Products 2024 [place] Medications albuterol 90 mcg/actuation inhaler Inhale 2 [...] topic Medical Devices Not on file Insurance [address] [place] [address] [address] [place] [address] [address] [place] [address] [address] [place] [address] [place] [address] [address] [place] [address] [address] [place] [phone] [place] [address] [address] [place] [phone] [place] [address] [place] [address] Care Teams Car Supplier Relationship Specialty Start Date End Date Yonatan Good PA [facility] [place] [address] PCP - General 10/14/20 Additional Source Comments The information contained in this document represents components of the legal health record. It is not the complete legal health record.[facility]
== END 2024-11-24 14:33 | disposition home or self-care (01) ==
LOC: HO.HUSH 13:55
PROVIDERS: PCP Physician Assistant; Visit Provider Urology
DX: N45.1 Epididymitis (principal)
CPT/HCPCS: 99214

== ENCOUNTER → 2024-11-24 13:55 | Outpatient (BNVA) | payer OTHER, SELFPAY | PROVIDERS: PCP Physician Assistant; Visit Provider Urology | DX: N45.1 Epididymitis (principal) | CPT/HCPCS: 99212 ==

== ENCOUNTER 2025-01-07 15:16 | Outpatient (AMB) | payer OTHER, SELFPAY ==
--- NOTE | 2025-01-07 15:20 | MHC.OFFVIS ---
Intake Visit Reasons: 6M follow up/ PVR/UA Intake Note: patient presents today for: 6mo follow up urology medications: alfuzosin blood thinners: none Per Diem Physical Therapist Assistant Required: No Accompanied by: Self / Same As Patient Allergies diphenhydramine (From Benadryl) Allergy (Severe, Verified 02/10/25 11:29) Anaphylaxis fish oil Allergy (Severe, Verified 02/10/25 11:29) Hives trazodone Adverse Reaction (Intermediate, Verified 02/10/25 11:29) erection SEAFOOD Allergy (Severe, Uncoded 01/07/25 15:21) HIVES,SWELLING THROAT HPI Comments Details: Juan C is a pleasant 47-year-old male. He is a patient of Dr. Good. He seen for the following urologic conditions - cystitis - left epididymitis Has recurrent scarring running all the way along the vasa from the inguinal canal down to the testicle Testicle is not painful however vasal structures are painful and the cord itself is markedly thickened Appears to be a continuation of his chronic inflammatory process Recommend left orchiectomy with removal of the cord structures Reassured him that he has bilateral testicles and his normal production of testosterone would remain as well as his ability to get erections Left epididymitis with scarring Persistent pain On exam scarring through the tail of the epididymis 01/21 left epididymectomy Pathology - fibrous nodule demonstrates dense collagen stroma with mild chronic inflammation 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 This lesion is considered to represent a benign reactive fibrous proliferation in response to a previous infection or trauma Cystitis Seen on imaging Persistent microscopic hematuria PFSH Medical History GERD (gastroesophageal reflux disease) Smoker Surgical History History of epididymectomy (01/05/24) Hx of endoscopy History of colonoscopy Hx of cholecystectomy H/O knee surgery History of appendectomy History of hand surgery History of laparoscopic cholecystectomy (~11/2019) Family History Mother Hepatitis C Hypertension Diabetes Father Hepatitis C Hypertension Cancer Paternal Grandfather History of prostate cancer Hypertension Sister Diabetes Maternal Aunt Brain cancer Paternal Uncle History of prostate cancer Social History Household Members: Children Housing: House Are you a primary family day care worker to a significant other at home: No Do you presently have visiting nurse or other home services: No Alcohol intake: never Patient Tobacco Use Status: Current everyday Tobacco user Tobacco use type: Cigarette e-Cigarette/Vaping Use: Never Used Substance Use Type: Marijuana service: No Current occupational status: unemployed 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 Cognitive needs: No Hearing needs: No Vision needs: No Review of Systems Const Denies chills and Denies fever(s) Card Reports no additional complaints and Denies syncope Resp Denies cough GI Denies abdominal pain and Denies heartburn Reports as per HPI and Denies change in libido Neuro Denies syncope Psych Denies change in libido Endo Denies change in libido Physical Exam Const General: cooperative, healthy appearing, comfortable and no acute distress Orientation/consciousness: patient oriented x3 HEENT Face and sinus: Yes normal facial exam Mouth: moist mucous membranes Neck Neck: Yes normal visual inspection, Yes full ROM and Yes trachea midline Chest Chest palpation & inspection: normal inspection of the chest Resp Effort & Inspection: normal respiratory effort, able to speak in complete sentences and no respiratory distress GI Inspection: Yes normal to inspection Back/Spine/Pelvis Cervical Spine: normal cervical lordosis Thoracic/Lumbar Spine: thoracic and lumbar spine normal to inspection Skin General skin exam: no rashes or lesions noted Neuro General: patient oriented x3, gait normal, tone normal and moves all extremities Extrem General: Yes normal to inspection and Yes capillary refill normal Assessment & Plan Assessment & Plan (1) Testicular pain: Code(s): N50.819 - Testicular pain, unspecified Category: Medical Qualifiers: Laterality: left Qualified Code(s): N50.812 - Left testicular pain Plan Risks, benefits and alternatives to therapy were discussed. These include but are not limited to infection, bleeding, damage to local organs and tissues, need for further interventions. Anesthetic risks regarding cardiac arrhythmia, blood clots, and potential mortality were discussed. The patient understands the typical recovery time and the outpatient nature of the procedure. After consideration of these risks the patient gives full informed consent and they wish to move ahead with the procedure. - left orchiectomy simple Patient Instructions: This note is constructed using voice recognition software. While every effort has been made to ensure accuracy virologist errors may have been included. Imaging studies, laboratory and physical exam results were discussed and reviewed in detail. No major barriers to patient understanding were identified. An opportunity to ask questions regarding the treatment plan was provided. All questions were answered. The patient expressed understanding and agreement with the above treatment plan. The patient is aware they should contact our office by phone for worsening of their current condition or the appearance of new urologic symptoms. Compliance is encouraged with any medications and followup testing that is ordered. It is a privilege to participate in the urologic care of your patient. If you have any questions or concerns regarding treatment for the above conditions, or other urologic issues, please do not hesitate to contact me. The office telephone contact is [phone]. Sincerely, Dr Yuniel Rosaroi MD, [facility] - Urology Compassionate Specialist Care for the Genitourinary System Coding Level of Care Code Est Pt Level 4 (13728) Diagnoses Pain in left testicle N50.812 Laterality: left
== END 2025-01-07 15:51 | disposition home or self-care (01) ==
LOC: HO.HUSH 15:17
PROVIDERS: PCP Physician Assistant; Visit Provider Urology
DX: N50.812 Left testicular pain (principal)
CPT/HCPCS: 99214

== ENCOUNTER → 2025-01-07 15:16 | Outpatient (BNVA) | payer OTHER, SELFPAY | PROVIDERS: PCP Physician Assistant; Visit Provider Urology | DX: N50.812 Left testicular pain (principal); N30.90 Cystitis, unspecified without hematuria | CPT/HCPCS: 99212 ==

== ENCOUNTER 2025-01-31 11:07 | Day surgery (SDC) | payer OTHER, SELFPAY ==
--- OUTSIDE RECORDS SUMMARY | 2025-01-14 12:18 | XMS_ITS | Clinical Summary ---
Author Organization [facility] Address [email or web address] [place] [address] Phone Care Team Providers Care Leasing Manager Name Role Phone Yonatan Good Primary Care Provider + Allergies Active Allergy Reactions Criticality Noted Date Comments Diphenhydramine Hcl Hives 06/06/2024 Phs Other Free Text-See Phs Viewer 1 05/20/2010 BENADRYL-RASH Shellfish Containing Products 2024 [place] Medications albuterol 90 mcg/actuation inhaler Inhale 2 [...] FOBT 2022 SIGMOIDOSCOPY 2022 VIRTUAL COLONOSCOPY 2022 INFLUENZA VACCINE (#1) 2024 COVID-19 VACCINE (1 - 2024-2 6 season) 2024 Adult Td,Tdap Booster 09/14/2025 09/15/2015 , 11/18/2011 [...] topic Medical Devices Not on file Insurance [place]CO [place] [address] [place] [address] [address] [place] [id number] [place] [address] [address] [place] [address] [address] [place] [address] ACO Care Teams Leasing Manager Relationship Specialty Start Date End Date Yonatan Good PA [address] [place] [address] PCP - General 10/14/20 Additional Source Comments The information contained in this document represents components of the legal health record. It is not the complete legal health record.[facility]
--- OUTSIDE RECORDS SUMMARY | 2025-01-14 12:18 | XMS_ITS | Clinical Summary ---
Author Organization [facility] Address [address] [place] [address] Phone Care Team Providers Care Tanning Solution Maker Name Role Phone Physician, No Pcp Primary Care Provider Unavaila ble Allergies Active Allergy Reactions Criticality Noted Date Comments Diphenhydramine Hcl Hives 06/06/2024 [place] Oil Hives 06/06/2024 Surgical History Surgery Date Site/Laterality Comments APPENDECTOMY CHOLECYSTECTOMY HERNIA REPAIR Medical History Medical History Date Comments Crohn's colitis ([facility] V24, [facility] V28) Social History Tobacco Use Types [...] Health Maintenance Due Date Last Done Comments Colorectal Cancer Screening: Colonoscopy 1977 Hepatitis B Vaccines (1 of 3 - 19+ 3-dose series) 1996 Depression Screening 03/31/2024 Cholesterol Screening (Lipid Panel) 06/06/2024 HIV Screening 06/06/2024 Hepatitis C Screening 06/06/2024 Social Influencers of Health Screening 06/06/2024 COVID-19 Vaccine (1 - 2023-2 5 season) 2024 Influenza Vaccine (#1) 2024 DTaP,Tdap,and Td Vaccines (3 - Td or Tdap) 09/14/2025 09/15/2015, 11/18/2011 RSV Immunization Adult Patients (1 - 1-dose 75+ series) 2052 Pneumococcal Vaccine: Pediatrics (0 to 5 Years) [...] patient's age to complete this topic Insurance [facility] [employer] Care Teams Tanning Solution Maker Relationship Specialty Start Date End Date Physician, No Pcp PCP - General 06/06/24
--- NOTE | 2025-01-26 14:23 | HO.ANESPROP2 ---
Documented by User: Whit Hastings NP 01/26/25 14:23 HPI - Anesthesia Eval Consult details Narrative: 49yo M for Left Orchiectomy PMFSH Active Problems Active Problems: All Active Problems Leukocytosis (Chronic) Elevated fasting blood sugar (Acute) Bladder outlet obstruction (Acute) Tobacco dependence (Acute) Bleeding hemorrhoid (Acute) IBD (inflammatory bowel disease) (Acute) Annual physical exam (Acute) Shortness of breath (Acute) Cystitis (Acute) Nephrolithiasis (Acute) Nicotine dependence (Acute) Microscopic hematuria (Acute) Urinary retention (Acute) Epididymitis (Acute) Dermatitis (Acute) Testicular pain (Acute) JAKI (generalized anxiety disorder) (Acute) Obese (Acute) Left arm numbness (Acute) MDD (major depressive disorder), recurrent episode, moderate (Acute) Emphysema lung (Acute) Trigger finger, right middle finger (Acute) Insomnia (Acute) Adult general medical exam (Acute) Sinusitis (Acute) Pulmonary nodules (Acute) Locking finger joint (Acute) Screening for diabetes mellitus (Acute) Blood per rectum (Acute) Crohn's disease (Acute) Wheezing (Acute) Cough (Acute) Hypercholesteremia (Acute) Diarrhea (Acute) Screening for hypothyroidism (Acute) Screening for hypercholesterolemia (Acute) Allergic rhinitis (Acute) Gallstones (Acute) PTSD (post-traumatic stress disorder) (Acute) Renal colic (Acute) Hypertension (Acute) GERD (gastroesophageal reflux disease) (Acute) Low back pain (Acute) Anxiety (Acute) Past Medical History Medical History GERD (gastroesophageal reflux disease) Smoker Family History Family History Mother Hepatitis C Hypertension Diabetes Father Hepatitis C Hypertension Cancer Paternal Grandfather History of prostate cancer Hypertension Sister Diabetes Maternal Aunt Brain cancer Paternal Uncle History of prostate cancer Family history of problems with anesthesia: No Surgical History Surgical History History of epididymectomy (01/05/24) Hx of endoscopy History of colonoscopy Hx of cholecystectomy H/O knee surgery History of appendectomy History of hand surgery History of laparoscopic cholecystectomy (~11/2019) History of Problems with Anesthesia: No Social History Social History Household Members: Children Housing: House Are you a primary healthcare network pricing consultant to a significant other at home: No Do you presently have visiting nurse or other home services: No Alcohol intake: never Patient Tobacco Use Status: Current everyday Tobacco user Tobacco use type: Cigarette e-Cigarette/Vaping Use: Never Used Substance Use Type: Marijuana Have you been hit, kicked, punched, or otherwise hurt by someone within the past year? 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 Cognitive needs: No Hearing needs: No Vision needs: No Meds Allergies Allergy/AdvReac Type Severity Reaction Status Date / Time diphenhydramine (From Allergy Severe Anaphylaxis Verified 01/31/25 11:08 Benadryl) fish oil Allergy Severe Hives Verified 01/31/25 11:08 trazodone AdvReac Intermediate erection Verified 01/31/25 11:08 SEAFOOD Allergy Severe HIVES,SWELLING Uncoded 01/07/25 15:21 THROAT Assessment and Plan Assessment Anesthesia Assessment: Chart Reviewed Final Anesthetic Review Family History of Problems with Anesthesia: No History of Problems with Anesthesia: No Documented by User: Felipe Serna MD 01/31/25 12:47 PMF Past Medical History Medical History GERD (gastroesophageal reflux disease) Smoker Family History Family History Mother Hepatitis C Hypertension Diabetes Father Hepatitis C Hypertension Cancer Paternal Grandfather History of prostate cancer Hypertension Sister Diabetes Maternal Aunt Brain cancer Paternal Uncle History of prostate cancer Surgical History Surgical History History of epididymectomy (01/05/24) Hx of endoscopy History of colonoscopy Hx of cholecystectomy H/O knee surgery History of appendectomy History of hand surgery History of laparoscopic cholecystectomy (~11/2019) Social History Social History Household Members: Children Housing: House Are you a primary healthcare network pricing consultant to a significant other at home: No Do you presently have visiting nurse or other home services: No Alcohol intake: never Patient Tobacco Use Status: Current everyday Tobacco user Tobacco use type: Cigarette e-Cigarette/Vaping Use: Never Used Substance Use Type: Marijuana Have you been hit, kicked, punched, or otherwise hurt by someone within the past year? 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 Cognitive needs: No Hearing needs: No Vision needs: No Meds Allergies Allergy/AdvReac Type Severity Reaction Status Date / Time diphenhydramine (From Allergy Severe Anaphylaxis Verified 01/31/25 11:08 Benadryl) fish oil Allergy Severe Hives Verified 01/31/25 11:08 trazodone AdvReac Intermediate erection Verified 01/31/25 11:08 SEAFOOD Allergy Severe HIVES,SWELLING Uncoded 01/07/25 15:21 THROAT Exam Airway Mallampati Class: II TM Dist: >3cm Neck ROM: Full Denture: Upper Loose/Missing/Broken Teeth: No Heart: RRR Lungs: CTA Assessment and Plan Assessment Anesthesia Assessment: Anesthesia Plan Discussed and Chart Reviewed Final Anesthetic Review NPO: Yes ASA Class: II Final Preanesthetic Review: No Changes in Pt Med Stat, Meds/Allgs Chart Reviewed and Consent Obtained/Reviewed Patient Risk: Low Procedure Risk: Low Anesthetic Plan Anesthetic Plan: GA Disposition: Standard PACU
[2025-01-27 14:43] VITALS: BMI 27.2
[2025-01-31] VITALS (11 sets, daily range): BP systolic 101–129; BP diastolic 46–81; PULSE 52–75; RESP 10–21; TEMP 36.1–36.5; O2SAT 94–100; BMI 27.7
[2025-01-31] MEDS: Lactated Ringers 1,000 ML 100 ML IVCONT (11:57)
--- NOTE | 2025-01-31 13:07 | MHC.SHP ---
Pre-Procedural Eval Section A - 24 Hr Update-Section A only Date of Service: 01/31/25 The patient is an INPATIENT: No Changes since office visit: No Cold of Flu in the past 2 weeks, No New Medical Problems, No Changes in Medication and No Patient answered all questions The patient has been examined within 24 hours of the surgical procedure. The History & Physical has been completed within 30 days and I have reviewed it.: Yes Section B - Complete if H&P > 30 days Chief Complaint: Epididymitis Details of Present Illness: Left orchiectomy Relevant Family History (Specify if Yes): No Relevant Social History: None Present Medications: see Short Stay Collaborative assessment Medical History: No relevant PMH History of Previous Operations: Relevant previous surgery/procedure and date(s) Allergies: Allergies Allergy/AdvReac Type Severity Reaction Status Date / Time diphenhydramine (From Allergy Severe Anaphylaxis Verified 01/31/25 11:08 Benadryl) fish oil Allergy Severe Hives Verified 01/31/25 11:08 trazodone AdvReac Intermediate erection Verified 01/31/25 11:08 SEAFOOD Allergy Severe HIVES,SWELLING Uncoded 01/07/25 15:21 THROAT Review of Systems Sugical H&P ROS: Negative: Constitution, Cardiovascular, Respiratory, Neurological, Psychiatric, Hem-Onc, Allergic/Immunologic, Gastrointestinal, Genitourinary, Musculoskeletal, Integumentary, Endocrine and Eyes/Ears/Nose/Throat Exam Surgical H&P Exam: Normal: HEENT, Normal: Heart, Normal: Lungs, Normal: Extremities, Normal: Abdomen, Normal: Skin and Normal: Neurological Plan Diagnosis/Plan: Unchanged (Left simple orchiectomy) I have reviewed the history and physical and performed a pertinent physical examination on my patient. No changes have occurred unless specified. Time Spent With Patient Time: Total time managing care of this patient today ____ minutes.
--- NOTE | 2025-01-31 14:00 | W.PM.OPN ---
Operative Note Operative Note Date of Service: 01/31/25 Narrative: PreOperative Diagnosis: Persistent left testicular pain Post Operative Diagnosis: Persistent left testicular pain Procedure: Left simple orchiectomy Surgeon: Dr Yuniel Rosario Anesthesia: general Indications for procedure: Persistent left testicular pain. Conservative therapy has been attempted. Had previously undergone epididymectomy which controlled pain for approximately 12 months. He is seeking orchiectomy for pain control. Has been warned that this may not Delgado control pain. Procedure: After informed consent was verified the patient was brought to the operating room and placed in a supine position. Anesthesia was administered per protocol. The patient was prepped and draped in a sterile fashion. Safety pause time-out was performed. Antibiotics being given. Local anesthetic was infiltrated in a horizontal fashion in the left hemiscrotum. The incision was made with a 15 blade through the skin and subdermal layer. An attempt was made to dissect onto the tunica plane. Due to prior surgery there was significant adhesions and scarring of the tunica to the surrounding tissue and to the testicle itself. Testicle and its adventitia was delivered through the skin incision. The gubernacular attachments were divided using a LigaSure device to minimize postoperative bleeding. The LigaSure was then used to divide the testicle from its adhesions.. The cord was traced in a proximal fashion back into the groin and was palpable on the symphysis pubis. Cord was fully elevated and the vas deferens was dissected free from the vascular pedicle. Clamps were placed on the vas deferens and separately through the vascular pedicle. The cord structures were then divided using the LigaSure device. The empty scrotum was irrigated free. Meticulous hemostasis was obtained with careful cautery of skin edges and other planes. [place] was reapproximated using running 3-0 Vicryl. Skin was closed with interrupted 4-0 chromic sutures. He tolerated procedure well. Was extubated in the operating room and transferred in a stable condition to the recovery area. Pathology: Left testicle Drains: none
== END 2025-01-31 15:55 | disposition home or self-care (01) ==
PROVIDERS: PCP Physician Assistant; Visit Provider Urology
PROC: (CPT 54520; principal; 2025-01-31 13:20)
DX: N45.1 Epididymitis (principal); N50.812 Left testicular pain; R93.49 Abnormal radiologic findings on diagnostic imaging of other urinary organs; N02.9 Recurrent and persistent hematuria with unspecified morphologic changes; Z79.899 Other long term (current) drug therapy; Z88.5 Allergy status to narcotic agent; Z88.8 Allergy status to other drugs, medicaments and biological substances; Z90.49 Acquired absence of other specified parts of digestive tract; Z98.890 Other specified postprocedural states; Z56.0 Unemployment, unspecified
CPT/HCPCS: 54520; 88304; 88307; 88312; J0131; J0690; J1100; J1171; J1885; J2003; J2250; J2405; J2704; J2795; J3010

== ENCOUNTER → 2025-01-31 11:07 | Outpatient (BNV) | payer OTHER, SELFPAY | PROVIDERS: PCP Physician Assistant; Visit Provider Urology | DX: N50.812 Left testicular pain (principal) | CPT/HCPCS: 54520 ==

== ENCOUNTER 2025-02-04 12:22 | Emergency (ER) | payer OTHER, SELFPAY ==
--- NOTE | ~2025-02-04 | CT_ITS ---
EXAMINATION: CT ANGIOGRAM CHEST CLINICAL INFORMATION: Left neck and left chest pain. Recent surgery. Rule out PE. COMPARISON: No prior CTPA. CT chest 12/17/2022. TECHNIQUE: Multiple axial images were obtained through the chest after the administration of 65 mL of Omnipaque 350 intravenous contrast. Extensive vascular post-processing including two-dimensional and three-dimensional reformatted images were created and reviewed on an independent workstation. This CT examination was performed using dose optimization techniques as appropriate, variously including the following: *Automated exposure control *Adjustment of mA and/or kV according to patient size (this includes techniques or standardized protocols for targeted exams where dose is matched to indication/reason for exam; i.e. extremities or head) *Use of iterative reconstruction technique FINDINGS: VASCULAR: Study quality is diagnostic. There is no evidence of pulmonary arterial filling defect to suggest pulmonary embolus. Main pulmonary artery has a normal caliber. There is no evidence of right heart strain. There is no contrast reflux into the IVC. The aorta is nonaneurysmal, and normal in caliber and course. There is a normal branching pattern. There is no significant atheromatous change. The heart size is normal. There is no pericardial effusion. The great vessels appear patent. LUNGS: The lungs are clear without focal opacity or consolidation. A 7 mm right lower lobe pulmonary nodule is unchanged from prior exams and benign. (Series 9, image 77). No additional pulmonary nodules. There are no interstitial changes. Small airways appear normal. There is no pleural effusion or pneumothorax. MEDIASTINUM: Partially imaged thyroid is normal. There is no mediastinal mass or lymphadenopathy present. The central airways are patent. The esophagus is unremarkable. AXILLA/CHEST WALL: No adenopathy or mass. Normal appearance. IMAGED UPPER ABDOMINAL CONTENTS: There has been a prior cholecystectomy. Remainder of the imaged upper abdominal structures appear normal. OSSEOUS STRUCTURES: There is no lytic or blastic bone lesion. CT/CT angio chest PE protocol IMPRESSION: 1. There is no evidence of pulmonary embolus. There is no evidence of acute aortic syndrome or aneurysm. 2. There is no active pulmonary disease. The lungs are clear. 3. There is a 7 mm right lower lobe pulmonary nodule which has remained stable from 2019 and is benign. No suspicious nodules. Electronically signed by: Cornelius Engel MD 02/04/2025 04:55 PM [facility]
--- NOTE | ~2025-02-04 | CT_ITS ---
EXAMINATION: CT PELVIS WITH CONTRAST CLINICAL INFORMATION: Post left orchiectomy. Pain. Rule out abscess. COMPARISON: Previous scrotal ultrasounds most recent October [address] of the abdomen and pelvis most recent November 2019 TECHNIQUE: Helical scanning was performed with submillimeter collimation through the pelvis with the use of oral contrast and during bolus intravenous injection of 65 mL of Omnipaque 350 intravenous contrast. Sagittal and coronal multiplanar 2-D reconstructions were obtained. This CT examination was performed using dose optimization techniques as appropriate, variously including the following: *Automated exposure control *Adjustment of mA and/or kV according to patient size (this includes techniques or standardized protocols for targeted exams where dose is matched to indication/reason for exam; i.e. extremities or head) *Use of iterative reconstruction technique DLP 2 3 4 mgy/cm FINDINGS: Visualized small and large bowel is normal. Normal bladder. Normal size prostate gland. No ascites or adenopathy. Normal vascular structures. Minimal fat stranding in the left inguinal region. No fluid collection/abscess. [place] left inguinal lymphadenopathy, likely reactive. No enlarged lymph nodes. Mild degenerative disc disease at L5-S1. Stable subcentimeter sclerotic lesion in the left iliac bone from prior CT November 2019, therefore likely benign. Stable tiny sclerotic foci in both femoral heads. No suspicious bone lesion. CT/CT pelvis w IV con IMPRESSION: Minimal postsurgical changes in the left inguinal region post orchiectomy. [place] left inguinal lymphadenopathy, likely reactive. No fluid collection/abscess. Electronically signed by: Paula Henao MD 02/04/2025 04:57 PM [facility]
[2025-02-04 12:44] VITALS: BP 150/69; PULSE 75; RESP 18; TEMP 36.6; O2SAT 97; BMI 28.9
--- NOTE | 2025-02-04 12:45 | ED.MALEGU ---
HPI - Male Genitourinary General Chief complaint: Urogenital-Male Stated complaint: sore throat, neck pain Time Seen by Provider: 02/04/25 14:14 Source: patient Mode of arrival: ambulatory Limitations: no limitations History of Present Illness ED Provider: James Weber HPI Narrative: [age] year male status post left orchiotomy this past friday presents to the ED for left sided chest pain with left side neck pain. Patient also states left testicular pain since having surgery on friday. Patient denies any fever, chills, nausea, abdominal pain, coughing, or vomiting. patient states normal bowel movements. Related Data Previous Rx's ?Medication ?Instructions ?Recorded alfuzosin 10 mg tablet,extended 10 mg PO BEDTIME 90 days #90 tabs 08/11/24 release 24 hr esomeprazole magnesium 40 mg 40 mg PO DAILY #90 caps 09/20/24 capsule,delayed release albuterol sulfate 90 mcg/actuation 2 puff inhalation Q4-6H PRN 11/13/24 aerosol inhaler (Ventolin HFA) shortness of breath or wheezing 30 days #8.5 grams mirtazapine 15 mg tablet 15 mg PO BEDTIME 30 days #30 tabs 01/12/25 sucralfate 100 mg/mL oral 10 ml PO QID #1,000 mL 01/13/25 suspension fexofenadine 180 mg tablet 180 mg PO DAILY 90 days #90 tabs 01/23/25 (Kim Allergy) famotidine 40 mg tablet 40 mg PO BEDTIME 90 days #90 tabs 01/26/25 fluticasone propionate 50 2 spray intranasal DAILY #32 mL 01/26/25 mcg/actuation nasal spray,suspension oxycodone 5 mg tablet 5 mg PO Q6-8H PRN pain (scale 01/31/25 score 4-6) 7 days #24 tabs Allergies Allergy/AdvReac Type Severity Reaction Status Date / Time diphenhydramine (From Allergy Severe Anaphylaxis Verified 02/04/25 12:49 Benadryl) fish oil Allergy Severe Hives Verified 02/04/25 12:49 trazodone AdvReac Intermediate erection Verified 02/04/25 12:49 SEAFOOD Allergy Severe HIVES,SWELLING Uncoded 01/07/25 15:21 THROAT Review of Systems Review of Systems: Chest pain neck pain, left testicular pain Yes all other systems are reviewed and are negative [facility] Past Medical History Medical History GERD (gastroesophageal reflux disease) Smoker Surgical History History of epididymectomy (01/05/24) Hx of endoscopy History of colonoscopy Hx of cholecystectomy H/O knee surgery History of appendectomy History of hand surgery History of laparoscopic cholecystectomy (~11/2019) Family History Family History Mother Hepatitis C Hypertension Diabetes Father Hepatitis C Hypertension Cancer Paternal Grandfather History of prostate cancer Hypertension Sister Diabetes Maternal Aunt Brain cancer Paternal Uncle History of prostate cancer Social History Social History Household Members: Children Housing: House Are you a primary customer care representative to a significant other at home: No Do you presently have visiting nurse or other home services: No Alcohol intake: never Patient Tobacco Use Status: Current everyday Tobacco user Tobacco use type: Cigarette e-Cigarette/Vaping Use: Never Used Substance Use Type: Marijuana service: No Current occupational status: unemployed 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 Cognitive needs: No Hearing needs: No Vision needs: No Physical Exam Vital Signs: Vital Signs: Last Vital Signs Temp 97.8 F 02/04/25 18:36 Pulse 84 02/04/25 18:36 Resp 17 02/04/25 18:36 BP 124/74 02/04/25 18:36 Pulse Ox 96 02/04/25 18:36 O2 Del Method Room Air 02/04/25 18:36 BMI result Body Mass Index 28.9 Const: Orientation/consciousness: oriented to time and patient oriented x3 HEENT: Head: Yes normal to inspection, Yes No palpable skull fracture present, Yes normocephalic and Yes atraumatic Eyes: General: appearance normal, both eyes and all related structures Neck: Neck: Yes normal visual inspection, Yes full ROM, Yes no lymphadenopathy, Yes no meningeal signs, Yes trachea midline, Yes supple, No anterior neck swelling and No tender Chest: Other: positive for left chest wall tendernss Chest palpation & inspection: normal inspection of the chest and normal palpation of entire chest wall Resp: Effort & Inspection: normal respiratory effort and able to speak in complete sentences Auscultation: clear to auscultation bilaterally Cardio: Jugular venous distension: no JVD Heart sounds: S1 normal heart sound present and S2 normal heart sound present GI: Inspection: Yes normal to inspection Palpation (GI): Soft to palpation, not firm, nontender, no guarding and not rigid : Other: Left testicular area positive significant tender with sutures but negative for any erythema, pus discharge, bluish black discoloration, or foul odor. General: Yes no CVA tenderness Back/Spine/Pelvis: Back: no CVA tenderness and No back tenderness Skin: General skin exam: no rashes or lesions noted, elasticity normal and turgor normal Neuro: General: oriented to time, patient oriented x3, gait normal, tone normal, moves all extremities, Normal light touch and pain sensation, no meningeal signs, no focal motor deficits, CN's II-XI intact bilaterally and normal sensation to monofilament Extrem: General: Yes normal to inspection, Yes full ROM and Yes capillary refill normal Psych: Appearance: grossly normal, well kempt and not disheveled Course Course Course Narrative: This is an RME: Additional HPI, ROS, PE not included below will be deferred to primary provider. RME assessment and note performed by: Scarlet Montejo PA-C This is a 30-sakh-tpa-male, with a recent Left simple orchiectomy performed by Dr. Rosario, hx of Crohn's disease, who presents to the ER with complaints of left arm numbness/tingling, increased pain in surgical site s/p left simple orchiectomy. Endorsing chills, no fevers. No urianry symptoms. Plan: Labs, EKG, further ER eval needed Medications Administered Discontinued Medications Generic Name Dose Route Start Last Admin Trade Name Binh PRN Reason Stop Dose Admin Iohexol 100 ml 02/04/25 16:23 02/04/25 16:24 Iohexol 350 Mg/Ml 100 Ml Infus..Btl IV 02/04/25 16:24 65 ml ONCE ONE Administration Morphine Sulfate 4 mg 02/04/25 14:31 02/04/25 14:57 Morphine Sulfate 4 Mg/Ml Cartridge IVPUSH 02/04/25 14:32 4 mg ONCE ONE Administration Protocol Morphine Sulfate 4 mg 02/04/25 17:15 02/04/25 18:30 Morphine Sulfate 4 Mg/Ml Cartridge IVPUSH 02/04/25 17:16 4 mg ONCE ONE Administration Protocol Medical Decision Making Medical Decision Making MDM Narrative: 49-year-old male presents to the ED for left-sided chest pain and neck pain status post left orchiectomy. Patient also states left testicular pain where he had the testicle removal. patient denies any abdominal pain. Patient has significant left testicular tenderness. Labs white count [id number]. Patient states no abdominal pain. Chest CT rule out PE and pelvis CT scan to check left testicle for status post surgical infection abscess 6:00p: Chest CTA came back negative for PE or pneumonia. Pelvis CT scan negative for any testicular abscess from surgery. Patient does not have any abdominal tenderness. Patient informed to call Dr. Rosario for earlier appointment. Patient is educated on continue taking oxycodone. Patient explained worrisome signs and informed to return to the ED immediately. not suspecting appendicitis, diveritculitits, crohn's exacerbation/abscess, cholecystitis, small bowel obstruction, or any other life threatening etiology. Differential Diagnosis Differential Diagnoses: The differential diagnosis associated with the presentation includes Admission/Observation Consideration of admission/observation: Escalation of care including admission/observation considered Lab Data 02/04/25 12:58 02/04/25 12:58 Labs: Lab Results 02/04/25 02/04/25 02/04/25 Range/Units 12:58 15:00 17:24 WBC 15.3 H (4.8-10.8) X10*3/uL RBC 5.13 (4.60-5.80) X10*6/uL Hgb 16.0 (14.0-18.0) g/dl Hct 46.9 (42.0-52.0) % MCV 91.4 (80.0-98.0) fL MCH 31.2 (27.0-33.0) pg MCHC 34.1 (31.0-36.0) g/dl RDW 12.5 (11.0-16.0) % Plt Count 273 (160-400) X10*3/uL MPV 10.0 (9.4-12.4) fL Immature Gran % (Auto) 0.3 (0.0-0.4) % Neut % (Auto) 73.5 H (45-73) % Lymph % (Auto) 17.8 L (20-40) % [place] % (Auto) 7.1 (2-11) % Eos % (Auto) 1.0 (0-4) % Baso % (Auto) 0.3 (0-2) % Lymph # (Auto) 2.7 (1.2-4.9) X10*3/uL [place] # (Auto) 1.1 (0.1-1.2) X10*3/uL Eos # (Auto) 0.2 (0.0-0.4) X10*3/uL Baso # (Auto) 0.1 (0.0-0.2) X10*3/uL Abs Immat Gran (auto) 0.05 H (0.00-0.03) X10*3/uL Absolute Neuts (auto) 11.2 H (2.0-8.3) x10*3/uL Absolute Nucleated RBC 0.000 (0.0-0.012) X10*3/uL Nucleated RBC % (auto) 0.0 (0.0-0.2) /100WBC Sodium 142 (135-145) mmol/L Potassium 4.7 (3.3-5.1) mmol/L Chloride 106 (96-108) mmol/L Carbon Dioxide 28 (22-29) mmol/L Anion Gap 13 (12-20) BUN 12 (9-16) mg/dL Creatinine 0.89 (0.5-1.4) mg/dL Estim Creat Clear Calc 106.0 Estimated GFR > 60 Random Glucose 108 (60-115) mg/dL Calcium 9.4 (8.4-10.2) mg/dL Magnesium 2.1 (1.6-2.6) mg/dL Total Bilirubin 0.4 (0.0-1.0) mg/dL Direct Bilirubin 0.1 (0.0-0.5) mg/dL AST 21 (5-37) U/L ALT 21 (0-40) U/L Alkaline Phosphatase 67 (39-117) U/L Troponin I High Sens < 2.7 < 2.7 (<3.5-35.0) ng/L Total Protein 7.2 (6.5-8.0) g/dL Albumin 4.5 (3.5-5.0) g/dL Urine Color Yellow Urine Appearance Clear Urine pH 8.0 (5.0-9.0) Ur Specific [place] 1.015 (1.005-1.025) Urine Protein Negative (Neg-Trace) mg/dL Urine Glucose (UA) Negative (Negative) mg/dL Urine Ketones Negative (Negative) mg/dL Urine Blood Negative (Negative) Urine Nitrite Negative (Negative) Ur Leukocyte Esterase Negative (Negative) Independent Interpretation I performed an independent interpretation of an: CT Scan Radiology Impression Discussion of test interpretation with radiology: I have reviewed the radiologist's reading. Independent Historian Clinical information obtained from an independent historian. History obtained from or confirmed by: Other (patient) Prescription Management I considered prescription management with: Pain Medication Discharge Plan Discharge Clinical Impression: Chest pain, Pain in scrotum Patient Disposition: Home, Self-Care Instructions: Chest Pain (ED), Chest Wall Pain (ED), Scrotal Pain (ED) Additional Instructions: Recommend calling and following up with Urology for earlier appointment for re-evaluation. Also follow-up with your primary care provider and also coffee shop aide Continue taking oxycodone your prescribed for pain. Return to the ED immediately for any testicular pain, pus discharge, erythema, chest pain, shortness of breath, abdominal pain, fever, chills, or any other life-threatening etiology. Prescriptions: No Action esomeprazole magnesium 40 mg capsule,delayed release(DR/EC) 40 mg PO DAILY Qty: 90 1RF Rx Instructions: do not start till after breath test albuterol sulfate [Ventolin HFA] 90 mcg/actuation HFA aerosol inhaler 2 puff inhalation Q4-6H PRN (Reason: shortness of breath or wheezing) 30 Days Qty: 8.5 3RF mirtazapine 15 mg tablet 15 mg PO BEDTIME 30 Days Qty: 30 3RF sucralfate 100 mg/mL suspension 10 ml PO QID Qty: 1000 1RF fexofenadine [Kim Allergy] 180 mg tablet 180 mg PO DAILY 90 Days Qty: 90 1RF fluticasone propionate 50 mcg/actuation spray,suspension 2 spray intranasal DAILY Qty: 32 0RF famotidine 40 mg tablet 40 mg PO BEDTIME 90 Days Qty: 90 1RF oxycodone 5 mg tablet 5 mg PO Q6-8H PRN (Reason: pain (scale score 4-6)) 7 Days Qty: 24 0RF Rx Instructions: Partial Fill upon patient request. alfuzosin 10 mg tablet extended release 24 hr 10 mg PO BEDTIME 90 Days Qty: 90 1RF Rx Instructions: Take before bedtime Referrals: [facility] – [place] [facility] [Provider Group, Cardiology] - 3 days Referral Note: Chest pain Clinical Impression: Chest pain [facility] [place] [facility] [Provider Group, Urology] - 2 days Referral Note: Status post left orchiectomy. Left testicular pain Clinical Impression: Pain in scrotum; Chest pain Yonatan Good PA-C [Primary Care Provider, Internal Medicine] - 2 days Referral Note: Chest pain testicular pain Clinical Impression: Pain in scrotum; Chest pain Stand Alone Forms: Work/School Release Interventions: ED Discharge Assessment Last Done: 02/04/25 18:36 Discharge Date/Time: 02/04/25 18:45 Print Language: Mohawk
--- NOTE | 2025-02-04 12:47 | ECG_ITS ---
Test Reason : LEFT ARM PAIN Blood Pressure : */* mmHG Vent. Rate : 63 BPM Atrial Rate : 63 BPM P-R Int : 146 ms QRS Dur : 88 ms QT Int : 354 ms P-R-T Axes : 44 47 39 degrees QTcB Int : 362 ms Normal sinus rhythm Normal ECG When compared with ECG of 23-Sep-2023 12:00, No significant change was found Referred By: Scarlet Montejo Electronically Signed By: Sachin Mcrae
[2025-02-04 13:04] LABS: MANUAL DIFF FLAG NO
[2025-02-04 13:08] VITALS: BP 125/81; PULSE 65; RESP 18; TEMP 37.1; O2SAT 97
[2025-02-04 13:08] LABS: Hematocrit 46.9 % (42.0-52.0); Hemoglobin 16.0 g/dl (14.0-18.0); Imm Gran Abs Auto 0.05 X10*3/uL (0.00-0.03); Imm Gran Pct Auto 0.3 % (0.0-0.4); Lymphocytes Absolute Auto 2.7 X10*3/uL (1.2-4.9); Mean Corpuscular HGB Conc 34.1 g/dl (31.0-36.0); Mean Corpuscular Hemoglobin 31.2 pg (27.0-33.0); Mean Corpuscular Volume 91.4 fL (80.0-98.0); NRBC Abs Auto 0.000 X10*3/uL (0.0-0.012); NRBC Pct Auto 0.0 /100WBC (0.0-0.2); Platelet Count 273 X10*3/uL (160-400); Red Blood Count 5.13 X10*6/uL (4.60-5.80); White Blood Count 15.3 X10*3/uL (4.8-10.8)
[2025-02-04 13:21] LABS: Alanine Aminotransferase 21 U/L (0-40); Albumin Level 4.5 g/dL (3.5-5.0); Alkaline Phosphatase 67 U/L (39-117); Anion Gap 13 (12-20); Aspartate Amino Transferase 21 U/L (5-37); Blood Urea Nitrogen 12 mg/dL (9-16); Calcium 9.4 mg/dL (8.4-10.2); Carbon Dioxide 28 mmol/L (22-29); Chloride 106 mmol/L (96-108); Creatinine Clr Calc Pharmacy 106.0; Estimated Glomerular Filt Rate > 60; Magnesium 2.1 mg/dL (1.6-2.6); Potassium 4.7 mmol/L (3.3-5.1); Sodium 142 mmol/L (135-145); Total Protein 7.2 g/dL (6.5-8.0)
[2025-02-04 13:31] LABS: Troponin-I High Sensitivity < 2.7 ng/L (<3.5-35.0)
[2025-02-04 14:56] VITALS: BP 135/88; PULSE 59; RESP 17; TEMP 37.1; O2SAT 97
[2025-02-04 14:57] VITALS: RESP 17
[2025-02-04 15:10] LABS: Appearance Urine Clear; Glucose Urine UA Negative (Negative); PH 8.0 (5.0-9.0); Specific Gravity - Urine 1.015 (1.005-1.025)
--- OUTSIDE RECORDS SUMMARY | 2025-02-04 15:21 | XMS_ITS | Clinical Summary ---
Author Organization [facility] Address [address] [place] [address] Phone Care Team Providers Care General Farmworker Name Role Phone Physician, No Pcp Primary Care Provider Unavaila ble Allergies Active Allergy Reactions Criticality Noted Date Comments Diphenhydramine Hcl Hives 06/06/2024 [place] Oil Hives 06/06/2024 Surgical History Surgery Date Site/Laterality Comments APPENDECTOMY CHOLECYSTECTOMY HERNIA REPAIR Medical History Medical History Date Comments Crohn's colitis ([facility] V24, [facility] V28) Social History Tobacco Use Types Packs/Day [...] patient's age to complete this topic Insurance [facility] [employer] Care Teams General Farmworker Relationship Specialty Start Date End Date Physician, No Pcp PCP - General 06/06/24
--- OUTSIDE RECORDS SUMMARY | 2025-02-04 15:22 | XMS_ITS | Clinical Summary ---
Author Organization [facility] Address [address] [place] [address] Phone Care Team Providers Care General Matcher Name Role Phone Yonatan Good Primary Care Provider + Allergies Active Allergy Reactions Criticality Noted Date Comments Diphenhydramine Hcl Hives 06/06/2024 Phs Other Free Text-See Phs Viewer 1 05/20/2010 BENADRYL-RASH Shellfish Containing Products 2024 [place] Medications albuterol 90 mcg/actuation inhaler Inhale 2 [...] on file Insurance [employer] [place] [place] [address] [place] [address] [address] [place] [id number] [place] [address] [address] [place] [address] [address] [place] [address] ACO Care Teams General Matcher Relationship Specialty Start Date End Date Yonatan Good PA [address] [place] [address] PCP - General 10/14/20 Additional Source Comments The information contained in this document represents components of the legal health record. It is not the complete legal health record.[facility]
[2025-02-04] MEDS: iohexoL 350 MG/ML 100 ML INFUS..BTL IV (16:24)
[2025-02-04 18:14] LABS: Troponin-I High Sensitivity < 2.7 ng/L (<3.5-35.0)
[2025-02-04 18:36] VITALS: BP 124/74; PULSE 84; RESP 17; TEMP 36.6; O2SAT 96
== END 2025-02-04 18:45 | disposition home or self-care (01) ==
PROVIDERS: Physician Assistant; Physician Assistant Medical; Emergency Provider Emergency Medicine Emergency Medical Services; PCP Physician Assistant
DX: R07.89 Other chest pain (principal); N50.812 Left testicular pain; J02.9 Acute pharyngitis, unspecified; M54.2 Cervicalgia; M79.602 Pain in left arm; R10.23 Pelvic and perineal pain bilateral; F17.210 Nicotine dependence, cigarettes, uncomplicated; Z79.899 Other long term (current) drug therapy
CPT/HCPCS: 36415; 71275; 72193; 80048; 80076; 81003; 83735; 84484; 85025; 93005; 96374; 96376; 99284; 99285; J2270; Q9967

== ENCOUNTER → 2025-02-04 12:47 | Outpatient (BNV) | payer OTHER, SELFPAY | PROVIDERS: Emergency Provider Emergency Medicine Emergency Medical Services; PCP Physician Assistant; Visit Provider Internal Medicine Cardiovascular Disease | DX: M79.602 Pain in left arm (principal) | CPT/HCPCS: 93010 ==

== ENCOUNTER → 2025-02-04 15:18 | Outpatient (BNV) | payer OTHER, SELFPAY | PROVIDERS: Emergency Provider Emergency Medicine Emergency Medical Services; PCP Physician Assistant; Visit Provider Radiology Diagnostic Radiology | DX: R91.1 Solitary pulmonary nodule (principal); R59.0 Localized enlarged lymph nodes; Z90.79 Acquired absence of other genital organ(s) | CPT/HCPCS: 71275; 72193 ==

== ENCOUNTER 2025-02-10 11:24 | Emergency (ER) | payer OTHER, SELFPAY ==
--- NOTE | ~2025-02-10 | CT_ITS ---
EXAMINATION: CT NECK SOFT TISSUE WITH IV CONTRAST HISTORY: infection, swelling, r/o abscess TECHNIQUE: Helical axial images were obtained through the neck after IV contrast administration per department protocol. Sagittal and coronal reformatted images were also obtained and reviewed. This CT exam was performed with one or more of the following dose reduction techniques: automated exposure control, adjustment of the mA and/or kV according to patient size, use of iterative reconstruction technique. DLP: mGy-cm COMPARISON: Previous chest CTA January 2025 FINDINGS: Orbits: Unremarkable. Sinuses/Mastoid air cells: The visualized paranasal sinuses are clear. Brain: The visualized portion of the brain is unremarkable. Salivary glands: The bilateral parotid and submandibular glands are unremarkable. Nasopharynx/Oropharynx: Limited due to dental hardware artifact. There is poor dentition with missing teeth and dental caries. No dental abscess. The adenoids and lingual tonsils and uvula are prominent The parapharyngeal fat is preserved. The epiglottis is unremarkable. Lymph nodes: There is diffuse shotty cervical lymphadenopathy. No enlarged lymph nodes. Thyroid gland: The thyroid gland is unremarkable. Salivary glands are normal. Vessels: There is normal enhancement of the carotid and jugular vessels bilaterally. Larynx/Trachea: No laryngeal abnormality is identified. The airway is patent. There is increased soft tissue seen against the right lateral posterior tracheal wall. This is new from recent CTA February 04, 2025 and therefore likely represents patient's secretions. Lung Apices: The visualized lung apices are clear. Bones: The bones are intact. CT/CT soft tissue neck w IV con IMPRESSION: No fluid collections/abscess seen. Poor dentition with multiple missing teeth and dental caries. No dental abscess. Normal-appearing orbits. Diffuse shotty cervical lymphadenopathy and prominent adenoidal soft tissue. Electronically signed by: Paula Henao MD 02/10/2025 01:29 PM [facility] [place]
--- NOTE | ~2025-02-10 | US_ITS ---
EXAMINATION: US SCROTUM CLINICAL INFORMATION: Status post left orchiectomy with pain and swelling.. COMPARISON: None available. TECHNIQUE: A sonogram of the scrotum was performed assessing rosado-scale appearance and color Doppler flow. Spectral Doppler analysis of the arterial and venous flow were performed in the testes bilaterally. FINDINGS: RIGHT: Right testicle measures 4.8 x 2.2 x 2.6 cm, volume 19.7 mL. No focal testicular parenchymal lesions are visualized. Spectral Doppler analysis of the arterial and venous flow is normal in the right testis. Right epididymal head is normal in size. No right hydrocele or varicocele is seen. Right epididymal Doppler flow is normal. LEFT: Left testicle has been surgically removed. There is a complex cystic area with septations in the left scrotal sac measuring 2.1 x 1.5 x 2.6 cm slightly vascular. This may represent subacute or old hematoma. Slightly vascular hyperechoic area adjacent to this complex cystic lesion may represent new or progression hematoma. No active active extravasation seen however limited. In the left inguinal canal there is oval to round lesion with central echogenicity. The entire lesion measures 1.2 x 1.3 x 1.4 cm. It has increased central vascularity, ? lymph node US/US scrotum IMPRESSION: Some right testicle normal left testicle and epididymis. Absent right testicle with a complex cystic area with septations in the scrotal sac question subacute to hematoma. Small hypoechoic area adjacent to this complex cystic area within the left scrotum may represent slightly new or fresh hematoma, limited process is considered less likely. Patient is 8 days post right orchiectomy. Electronically signed by: Nico Gonzales MD 02/10/2025 02:18 PM [facility]
[2025-02-10 11:27] VITALS: BP 136/80; PULSE 90; RESP 18; TEMP 37.1; O2SAT 97; BMI 28.2
--- NOTE | 2025-02-10 11:31 | ED.GENADULT ---
HPI - General Adult General Chief complaint: General Medical Stated complaint: Eye Issues Irritation Time Seen by Provider: 02/10/25 12:12 Source: patient and family Mode of arrival: ambulatory Limitations: no limitations History of Present Illness ED Provider: DR. Polk HPI narrative: 49-year-old male s/p left orchectomy last week for testicular torsion return for evaluation of post surgical pain in the left groin area, patient also noticed to have left eye swelling and redness and discharge, patient has left upper dental pain and possible infection. No fever, no chills, no nausea, no vomiting. Left eye pain and swelling with discharge with left-sided neck swelling and feeling enlarged gland in the left side of the neck. No shortness of breath, no chest pain. Related Data Previous Rx's ?Medication ?Instructions ?Recorded alfuzosin 10 mg tablet,extended 10 mg PO BEDTIME 90 days #90 tabs 08/11/24 release 24 hr esomeprazole magnesium 40 mg 40 mg PO DAILY #90 caps 09/20/24 capsule,delayed release albuterol sulfate 90 mcg/actuation 2 puff inhalation Q4-6H PRN 11/13/24 aerosol inhaler (Ventolin HFA) shortness of breath or wheezing 30 days #8.5 grams mirtazapine 15 mg tablet 15 mg PO BEDTIME 30 days #30 tabs 01/12/25 sucralfate 100 mg/mL oral 10 ml PO QID #1,000 mL 01/13/25 suspension fexofenadine 180 mg tablet 180 mg PO DAILY 90 days #90 tabs 01/23/25 (Kim Allergy) famotidine 40 mg tablet 40 mg PO BEDTIME 90 days #90 tabs 01/26/25 fluticasone propionate 50 2 spray intranasal DAILY #32 mL 01/26/25 mcg/actuation nasal spray,suspension amoxicillin 875 mg-potassium 1 tab PO BID #14 tabs 02/10/25 clavulanate 125 mg tablet erythromycin 5 mg/gram (0.5 %) eye 0.5 inch ophthalmic (eye) QID #3.5 02/10/25 ointment grams oxycodone 5 mg tablet 5 mg PO Q6-8H PRN pain (scale 02/11/25 score 4-6) 7 days #30 tabs Allergies Allergy/AdvReac Type Severity Reaction Status Date / Time diphenhydramine (From Allergy Severe Anaphylaxis Verified 02/10/25 11:29 Benadryl) fish oil Allergy Severe Hives Verified 02/10/25 11:29 trazodone AdvReac Intermediate erection Verified 02/10/25 11:29 SEAFOOD Allergy Severe HIVES,SWELLING Uncoded 01/07/25 15:21 THROAT Review of Systems Review of Systems: All other systems are reviewed and are negative Constitutional: Reports as per HPI and Reports no additional constitutional complaints Eyes: Reports as per HPI and Reports no additional eye complaints Reports system reviewed and no additional complaints, except as documented Cardiovascular: Reports as per HPI and Reports no additional cardiovascular complaints Respiratory: Reports as per HPI and Reports no additional respiratory complaints Gastrointestinal: Reports as per HPI and Reports no additional gastrointestinal complaints Genitourinary: Reports no additional female genitourinary complaints Musculoskeletal: Reports no additional musculoskeletal complaints Skin/Breast: Reports system reviewed and no additional complaints, except as docu Psychiatric: Reports no additional psychiatric complaints Endocrine: Reports no additional endocrine complaints Hematologic/Lymphatic: Reports no additional hematologic/lymphatic complaints Allergic/Immunologic: Reports no additional allergic/immunologic complaints Reports system reviewed and no additional complaints, except as documented and Reports Abnormal speech present [facility] Past Medical History Medical History GERD (gastroesophageal reflux disease) Smoker Surgical History History of epididymectomy (01/05/24) Hx of endoscopy History of colonoscopy Hx of cholecystectomy H/O knee surgery History of appendectomy History of hand surgery History of laparoscopic cholecystectomy (~11/2019) Family History Family History Mother Hepatitis C Hypertension Diabetes Father Hepatitis C Hypertension Cancer Paternal Grandfather History of prostate cancer Hypertension Sister Diabetes Maternal Aunt Brain cancer Paternal Uncle History of prostate cancer Social History Social History Household Members: Children Housing: House Are you a primary career placement specialist to a significant other at home: No Do you presently have visiting nurse or other home services: No Alcohol intake: never Patient Tobacco Use Status: Current everyday Tobacco user Tobacco use type: Cigarette e-Cigarette/Vaping Use: Never Used Substance Use Type: Marijuana service: No Current occupational status: unemployed 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 Blood pressure elevated. Heart rate normal. Respiratory rate normal. Temperature normal. Oxygen saturation normal. Appearance: Alert. Oriented X3. No acute distress. Head: Normal external exam. Normocephalic. Atraumatic. No Parisi signs noted. No raccoon eyes noted Eyes: General: appearance normal, both eyes and all related structures Visual Saunders: normal visual saunders by confrontation Alignment and Position: alignment normal and position normal Periorbital: periorbital findings normal Eyelids: swelling upper and lower eyelid left side. Conjunctivae: Conjunctival injection Sclerae: scleral injection. Corneas: corneas normal Pupils: Equal, round and reactive pupils present and Pupil accommodation reflex normal EOM: EOM abnormal (Limited abduction of right eye) and No Nystagmus present Direct Ophthalmoscopy: normal light reflex, no photophobia, no papilledema and fundi normal bilaterally ENT: TM's Normal. Pharynx normal. Uvula midline. Moist mucous membranes. No trismus noted. No drooling noted. No muffled voice noted. Neck: Normal inspection. Neck supple. FROM. No adenopathy. Thyroid Normal. No meningeal signs. No neck mass noted. CVS: Normal heart rate and rhythm. Heart sound normal. No murmurs noted. Pulses normal throughout. Respiratory: No respiratory distress. Painless inspiration. Breath sounds normal. No wheezes/rales/rhonchi noted. Chest nontender. No accessory muscle usage noted or decreased air movement noted. Abdomen: Soft and nontender. Bowel sounds normal in all 4 quadrants. No distention noted. No organomegaly noted. No visible injury noted. Back: No CVA tenderness. Full range of motion noted. Skin: Skin warm and dry. Normal skin color. Normal skin turgor. No rashes/lesions/lacerations noted. Extremities: No lower extremity edema. Extremities exhibit normal range of motion. Extremities nontender. Neuro: Oriented X 3. Cranial nerve exam: II-XII are grossly intact No motor deficit. No sensory deficit. Reflexes normal. Course Course Course Narrative: RME: 49 yold male s/p testicular swelling presents to the ED for left eye redness and bulging with left neck swelling and chest pain. phyiscal exam positive for left eye conjuctiva redness and swelling. left preauricular lymphonode present on palpation. left neck carodtid tenderness. labs EKG ordereed Reevaluation(s) Reevaluation #1: 49-year-old male s/p left orchiectomy presented with postoperative pain ultrasound is showing postoperative hematoma to the left testicle patient has an appointment tomorrow with Dr. Roasrio for postoperative evaluation. Dental infection will start on Augmentin causing left maxillary sinusitis and periorbital cellulitis will start the patient on Augmentin and erythromycin ointment. Time: 16:10 Medications Administered Discontinued Medications Generic Name Dose Route Start Last Admin Trade Name Freq PRN Reason Stop Dose Admin Piperacillin Sod/Tazobactam 50 mls @ 100 mls/hr 02/10/25 12:27 02/10/25 13:17 Sod 3.375 gm/ Sodium Chloride IV 02/10/25 12:56 Infused ONCE ONE Infusion Sodium Chloride 1,000 mls @ 999 mls/hr 02/10/25 12:31 02/10/25 13:49 Ns IV 02/10/25 13:31 Infused .Q1H1M ONE Infusion Iohexol 100 ml 02/10/25 13:06 02/10/25 13:06 Iohexol 350 Mg/Ml 100 Ml Infus..Btl IV 02/10/25 13:07 60 ml ONCE ONE Administration Ketorolac Tromethamine 15 mg 02/10/25 14:18 02/10/25 14:27 Ketorolac Tromethamine 15 Mg/Ml Vial IVPUSH 02/10/25 14:19 15 mg ONCE ONE Administration Morphine Sulfate 1 mg 02/10/25 14:18 02/10/25 14:28 Morphine Sulfate 4 Mg/Ml Cartridge IVPUSH 02/10/25 14:19 1 mg ONCE ONE Administration Protocol Tetracaine HCl 3 drop 02/10/25 12:14 02/10/25 12:59 Tetracaine Hcl/Pf 0.5% Oph Jada 4 Ml Drops EYE-BOTH 02/10/25 12:15 3 drop ONCE ONE Administration Medical Decision Making Differential Diagnosis Differential Diagnoses: The differential diagnosis associated with the presentation includes ( Postoperative infection of left scrotum, dental abscess, dental infection, gingivitis, left maxillary sinusitis, left periorbital cellulitis.) Admission/Observation Consideration of admission/observation: Escalation of care including admission/observation considered Lab Data MDM Lab Attestation statement: I reviewed the patient's lab results. 02/10/25 11:39 02/10/25 11:39 Labs: Lab Results 02/10/25 02/10/25 Range/Units 11:39 14:10 WBC 11.4 H (4.8-10.8) X10*3/uL RBC 5.35 (4.60-5.80) X10*6/uL Hgb 16.9 (14.0-18.0) g/dl Hct 48.8 (42.0-52.0) % MCV 91.2 (80.0-98.0) fL MCH 31.6 (27.0-33.0) pg MCHC 34.6 (31.0-36.0) g/dl RDW 12.5 (11.0-16.0) % Plt Count 286 (160-400) X10*3/uL MPV 9.9 (9.4-12.4) fL Immature Gran % (Auto) 0.5 H (0.0-0.4) % Neut % (Auto) 65.6 (45-73) % Lymph % (Auto) 17.9 L (20-40) % Gentry % (Auto) 14.9 H (2-11) % Eos % (Auto) 0.8 (0-4) % Baso % (Auto) 0.3 (0-2) % Lymph # (Auto) 2.0 (1.2-4.9) X10*3/uL Gentry # (Auto) 1.7 H (0.1-1.2) X10*3/uL Eos # (Auto) 0.1 (0.0-0.4) X10*3/uL Baso # (Auto) 0.0 (0.0-0.2) X10*3/uL Abs Immat Gran (auto) 0.06 H (0.00-0.03) X10*3/uL Absolute Neuts (auto) 7.5 (2.0-8.3) x10*3/uL Absolute Nucleated RBC 0.000 (0.0-0.012) X10*3/uL Nucleated RBC % (auto) 0.0 (0.0-0.2) /100WBC Smear Tech's Comments VERIFIED Sodium 140 (135-145) mmol/L Potassium 4.1 (3.3-5.1) mmol/L Chloride 106 (96-108) mmol/L Carbon Dioxide 26 (22-29) mmol/L Anion Gap 12 (12-20) BUN 8 L (9-16) mg/dL Creatinine 0.92 (0.5-1.4) mg/dL Estim Creat Clear Calc 101.5 Estimated GFR > 60 Random Glucose 84 (60-115) mg/dL Lactic Acid 0.6 (0.5-2.0) mmol/L Calcium 9.5 (8.4-10.2) mg/dL Total Bilirubin 0.5 (0.0-1.0) mg/dL AST 33 (5-37) U/L ALT 29 (0-40) U/L Alkaline Phosphatase 78 (39-117) U/L Troponin I High Sens < 2.7 (<3.5-35.0) ng/L Total Protein 7.7 (6.5-8.0) g/dL Albumin 4.6 (3.5-5.0) g/dL Independent Interpretation I performed an independent interpretation of an: Ultrasound ( Scrotal:Some right testicle normal left testicle and epididymis. Absent right testicle with a complex cystic area with septations in the scrotal sac question subacute to hematoma. Small hypoechoic area adjacent to this complex cystic area within the left scrotum may represent slightly new or) and CT Scan ( Soft tissue neck/ facial:No fluid collections/abscess seen. Poor dentition with multiple missing teeth and dental caries. No dental abscess. Normal-appearing orbits. Diffuse shotty cervical lymphadenopathy and prominent adenoidal soft tissue. ) Radiology Impression Discussion of test interpretation with radiology: I have reviewed the radiologist's reading. Discharge Plan Discharge Clinical Impression: Dental infection, Periorbital cellulitis of left eye Patient Disposition: Home, Self-Care Instructions: Periorbital Cellulitis (ED) Additional Instructions: return to the emergency department of the eye infection is not getting better with the antibiotic as prescribed. Prescriptions: New amoxicillin-pot clavulanate 875-125 mg tablet 1 tab PO BID Qty: 14 0RF erythromycin 5 mg/gram (0.5 %) ointment 0.5 inch ophthalmic (eye) QID Qty: 3.5 0RF Rx Instructions: Half-inch ribbon of antibiotic under the left eyelid. No Action esomeprazole magnesium 40 mg capsule,delayed release(DR/EC) 40 mg PO DAILY Qty: 90 1RF Rx Instructions: do not start till after breath test albuterol sulfate [Ventolin HFA] 90 mcg/actuation HFA aerosol inhaler 2 puff inhalation Q4-6H PRN (Reason: shortness of breath or wheezing) 30 Days Qty: 8.5 3RF mirtazapine 15 mg tablet 15 mg PO BEDTIME 30 Days Qty: 30 3RF sucralfate 100 mg/mL suspension 10 ml PO QID Qty: 1000 1RF fexofenadine [Kim Allergy] 180 mg tablet 180 mg PO DAILY 90 Days Qty: 90 1RF fluticasone propionate 50 mcg/actuation spray,suspension 2 spray intranasal DAILY Qty: 32 0RF famotidine 40 mg tablet 40 mg PO BEDTIME 90 Days Qty: 90 1RF alfuzosin 10 mg tablet extended release 24 hr 10 mg PO BEDTIME 90 Days Qty: 90 1RF Rx Instructions: Take before bedtime oxycodone 5 mg tablet 5 mg PO Q6-8H PRN (Reason: pain (scale score 4-6)) 7 Days Qty: 30 0RF Rx Instructions: Partial Fill upon patient request. Referrals: Yuniel Rosario MD [Physician, Urology] Interventions: ED Discharge Assessment Last Done: 02/10/25 17:17 Discharge Date/Time: 02/10/25 17:18 Print Language: Dutch
--- NOTE | 2025-02-10 11:32 | ECG_ITS ---
Test Reason : cp Blood Pressure : */* mmHG Vent. Rate : 90 BPM Atrial Rate : 90 BPM P-R Int : 138 ms QRS Dur : 92 ms QT Int : 326 ms P-R-T Axes : 64 42 25 degrees QTcB Int : 398 ms Normal sinus rhythm Normal ECG When compared with ECG of 04-Feb-2025 12:52, No significant change was found Referred By: James Foley Electronically Signed By: RAMIRO AUSTIN MD
[2025-02-10 11:46] LABS: Hematocrit 48.8 % (42.0-52.0); Hemoglobin 16.9 g/dl (14.0-18.0); Imm Gran Abs Auto 0.06 X10*3/uL (0.00-0.03); Imm Gran Pct Auto 0.5 % (0.0-0.4); Lymphocytes Absolute Auto 2.0 X10*3/uL (1.2-4.9); MANUAL DIFF FLAG SCAN; Mean Corpuscular HGB Conc 34.6 g/dl (31.0-36.0); Mean Corpuscular Hemoglobin 31.6 pg (27.0-33.0); Mean Corpuscular Volume 91.2 fL (80.0-98.0); NRBC Abs Auto 0.000 X10*3/uL (0.0-0.012); NRBC Pct Auto 0.0 /100WBC (0.0-0.2); Platelet Count 286 X10*3/uL (160-400); Red Blood Count 5.35 X10*6/uL (4.60-5.80); SCAN SMEAR FLAG 1; White Blood Count 11.4 X10*3/uL (4.8-10.8)
[2025-02-10 12:08] LABS: Troponin-I High Sensitivity < 2.7 ng/L (<3.5-35.0)
[2025-02-10 12:14] LABS: Albumin Level 4.6 g/dL (3.5-5.0); Alkaline Phosphatase 78 U/L (39-117); Anion Gap 12 (12-20); Aspartate Amino Transferase 33 U/L (5-37); Blood Urea Nitrogen 8 mg/dL (9-16); Calcium 9.5 mg/dL (8.4-10.2); Carbon Dioxide 26 mmol/L (22-29); Chloride 106 mmol/L (96-108); Creatinine Clr Calc Pharmacy 101.5; Estimated Glomerular Filt Rate > 60; Potassium 4.1 mmol/L (3.3-5.1); Sodium 140 mmol/L (135-145); Total Protein 7.7 g/dL (6.5-8.0)
[2025-02-10 12:30] LABS: Alanine Aminotransferase 29 U/L (0-40)
[2025-02-10] MEDS: Tetracaine HCl/PF 0.5% Oph Sol 4 ML DROPS 3 DROP EYE-BOTH (12:59)
[2025-02-10] MEDS: iohexoL 350 MG/ML 100 ML INFUS..BTL IV (13:06)
[2025-02-10 14:15] VITALS: BP 113/80; PULSE 70; RESP 18; TEMP 37.1; O2SAT 98
[2025-02-10 14:28] VITALS: RESP 16
--- OUTSIDE RECORDS SUMMARY | 2025-02-10 15:03 | XMS_ITS | Clinical Summary ---
Author Organization [facility] Address [address] [place] [address] Phone Care Team Providers Care Sales Floor Team Leader Name Role Phone Yonatan Good Primary Care Provider + Allergies Active Allergy Reactions Criticality Noted Date Comments Diphenhydramine Hcl Hives 06/06/2024 Phs Other Free Text-See Phs Viewer 1 05/20/2010 BENADRYL-RASH Shellfish Containing Products 2024 [place] Medications albuterol 90 mcg/actuation inhaler Inhale 2 [...] patient's age to complete this topic IPV VACCINES Aged Out No longer eligi ble based on patient's age to complete this topic MENINGOCOCCAL VACCINES (ACWY) Aged Out No longer eligible based on patient's age to complete this topic MENINGOCOCCAL VACCINES (B) Aged Out N o longer eligible based on patient's age to complete this topic Medical Devices Not on file [place] [address] [place] [address] [address] [place] [address] [place] [address] [place] [address] [address] [place] [id number] [place] [address] [address] [place] [id number] [place] [address] ACO [facility] A[facility] Care Teams Sales Floor Team Leader Relationship Specialty Start Date End Date Yonatan Good PA [address] [place] [address] PCP - General 10/14/20 Additional Source Comments The information contained in this document represents components of the legal health record. It is not the complete legal health record.[facility]
--- OUTSIDE RECORDS SUMMARY | 2025-02-10 15:03 | XMS_ITS | Clinical Summary ---
Author Organization [facility] Address [address] [place] [address] Phone Care Team Providers Care Renal Medicine Specialist Name Role Phone Physician, No Pcp Primary Care Provider Unavaila ble Allergies Active Allergy Reactions Criticality Noted Date Comments Diphenhydramine Hcl Hives 06/06/2024 [place] Oil Hives 06/06/2024 Surgical History Surgery Date Site/Laterality Comments APPENDECTOMY CHOLECYSTECTOMY HERNIA REPAIR Medical History Medical History Date Comments Crohn's colitis ([facility] V24, [facility] V28) Social History Tobacco Use Types Packs/Day [...] Health Screening 06/06/2024 COVID-19 Vaccine (1 - 2024-2 6 season) 2024 Influenza Vaccine (#1) 2024 DTaP,Tdap,and [...] [facility] Care Teams Renal Medicine Specialist Relationship Specialty Start Date End Date Physician, No Pcp PCP - General 06/06/24
[2025-02-10 17:02] VITALS: BP 116/74; PULSE 72; RESP 16; TEMP 36.7; O2SAT 98
[2025-02-10 17:17] VITALS: BP 116/74; PULSE 72; RESP 16; TEMP 36.7; O2SAT 98
== END 2025-02-10 17:18 | disposition home or self-care (01) ==
PROVIDERS: Physician Assistant; Emergency Provider Emergency Medicine
DX: K04.7 Periapical abscess without sinus (principal); H00.036 Abscess of eyelid left eye, unspecified eyelid; N44.00 Torsion of testis, unspecified; R10.32 Left lower quadrant pain; H57.12 Ocular pain, left eye; R11.0 Nausea; M54.2 Cervicalgia; R07.89 Other chest pain; F17.210 Nicotine dependence, cigarettes, uncomplicated; Z79.899 Other long term (current) drug therapy
CPT/HCPCS: 36415; 70491; 76870; 80053; 83605; 84484; 85025; 87040; 93005; 96361; 96365; 96375; 99285; J1885; J2270; J2543; Q9967

== ENCOUNTER → 2025-02-10 11:32 | Outpatient (BNV) | payer OTHER, SELFPAY | PROVIDERS: Emergency Provider Emergency Medicine; Visit Provider Internal Medicine Cardiovascular Disease | DX: R07.9 Chest pain, unspecified (principal) | CPT/HCPCS: 93010 ==

== ENCOUNTER → 2025-02-10 12:27 | Outpatient (BNV) | payer OTHER, SELFPAY | PROVIDERS: Emergency Provider Emergency Medicine; Visit Provider Radiology Diagnostic Radiology | DX: R59.0 Localized enlarged lymph nodes (principal); K08.9 Disorder of teeth and supporting structures, unspecified; L72.9 Follicular cyst of the skin and subcutaneous tissue, unspecified; Z90.79 Acquired absence of other genital organ(s) | CPT/HCPCS: 70491; 76870 ==

== ENCOUNTER 2025-02-11 09:27 | Outpatient (AMB) | payer OTHER, SELFPAY ==
--- NOTE | 2025-02-11 09:52 | MHC.OFFVIS ---
Intake Visit Reasons: post op orchiectomy pain Intake Note: Patient Is Present for Post Op Orchiectomy pain Urology Med:Alfuzosin Antibiotic Allergy:None Blood Thinner: None Allergies diphenhydramine (From Benadryl) Allergy (Severe, Verified 02/10/25 11:29) Anaphylaxis fish oil Allergy (Severe, Verified 02/10/25 11:29) Hives trazodone Adverse Reaction (Intermediate, Verified 02/10/25 11:29) erection SEAFOOD Allergy (Severe, Uncoded 01/07/25 15:21) HIVES,SWELLING THROAT HPI Comments Details: Juan C is a pleasant 47-year-old male. He is a patient of Dr. Good. He seen for the following urologic conditions - cystitis - left epididymitis Two weeks following left orchiectomy for persistent pain. 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 This lesion is considered to represent a benign reactive fibrous proliferation in response to a previous infection or trauma 01/22 left orchiectomy - similar pathology findings with proliferative response to infection Cystitis Seen on imaging Persistent microscopic hematuria PFSH Medical History GERD (gastroesophageal reflux disease) Smoker Surgical History History of epididymectomy (01/05/24) Hx of endoscopy History of colonoscopy Hx of cholecystectomy H/O knee surgery History of appendectomy History of hand surgery History of laparoscopic cholecystectomy (~11/2019) Family History Mother Hepatitis C Hypertension Diabetes Father Hepatitis C Hypertension Cancer Paternal Grandfather History of prostate cancer Hypertension Sister Diabetes Maternal Aunt Brain cancer Paternal Uncle History of prostate cancer Social History Household Members: Children Housing: House Are you a primary transition of care specialist to a significant other at home: No Do you presently have visiting nurse or other home services: No Alcohol intake: never Patient Tobacco Use Status: Current everyday Tobacco user Tobacco use type: Cigarette e-Cigarette/Vaping Use: Never Used Substance Use Type: Marijuana service: No Current occupational status: unemployed 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 Cognitive needs: No Hearing needs: No Vision needs: No Review of Systems Const Denies chills and Denies fever(s) Card Reports no additional complaints and Denies syncope Resp Denies cough GI Denies abdominal pain and Denies heartburn Reports as per HPI and Denies change in libido Neuro Denies syncope Psych Denies change in libido Endo Denies change in libido Physical Exam Const General: cooperative, healthy appearing, comfortable and no acute distress Orientation/consciousness: patient oriented x3 HEENT Face and sinus: Yes normal facial exam Mouth: moist mucous membranes Neck Neck: Yes normal visual inspection, Yes full ROM and Yes trachea midline Chest Chest palpation & inspection: normal inspection of the chest Resp Effort & Inspection: normal respiratory effort, able to speak in complete sentences and no respiratory distress GI Inspection: Yes normal to inspection Back/Spine/Pelvis Cervical Spine: normal cervical lordosis Thoracic/Lumbar Spine: thoracic and lumbar spine normal to inspection Skin General skin exam: no rashes or lesions noted Neuro General: patient oriented x3, gait normal, tone normal and moves all extremities Extrem General: Yes normal to inspection and Yes capillary refill normal Assessment & Plan Assessment & Plan (1) Hematoma: Code(s): T14.8XXA - Other injury of unspecified body region, initial encounter Category: Medical Plan Well organized hematoma and left scrotum Painful was provided Medications: Refilled oxycodone Partial Fill upon patient request. 5 mg PO Q6-8H PRN 30 tabs 0RF pain (scale score 4-6) 7 days Patient Instructions: This note is constructed using voice recognition software. While every effort has been made to ensure accuracy analog design engineer errors may have been included. Imaging studies, laboratory and physical exam results were discussed and reviewed in detail. No major barriers to patient understanding were identified. An opportunity to ask questions regarding the treatment plan was provided. All questions were answered. The patient expressed understanding and agreement with the above treatment plan. The patient is aware they should contact our office by phone for worsening of their current condition or the appearance of new urologic symptoms. Compliance is encouraged with any medications and followup testing that is ordered. It is a privilege to participate in the urologic care of your patient. If you have any questions or concerns regarding treatment for the above conditions, or other urologic issues, please do not hesitate to contact me. The office telephone contact is [phone]. Sincerely, Dr Yuniel Rosario MD, [facility] - Urology Compassionate Specialist Care for the Genitourinary System Coding Level of Care Code Est Pt Level 3 (03192) Diagnoses Hematoma T14.8XXA
--- OUTSIDE RECORDS SUMMARY | 2025-02-11 10:28 | XMS_ITS | Clinical Summary ---
Author Organization [facility] Address [address] [place] [address] Phone Care Team Providers Care Window Treatment Installer Name Role Phone Physician, No Pcp Primary Care Provider Unavaila ble Allergies Active Allergy Reactions Criticality Noted Date Comments Diphenhydramine Hcl Hives 06/06/2024 [place] Oil Hives 06/06/2024 Surgical History Surgery Date Site/Laterality Comments APPENDECTOMY CHOLECYSTECTOMY HERNIA REPAIR Medical History Medical History Date Comments Crohn's colitis ([facility] V24, [facility] [...] patient's age to complete this topic Insurance [facility] [facility] Care Teams Window Treatment Installer Relationship Specialty Start Date End Date Physician, No Pcp PCP - General 06/06/24
--- OUTSIDE RECORDS SUMMARY | 2025-02-11 10:28 | XMS_ITS | Clinical Summary ---
Author Organization [facility] Address [address] [place] [address] Phone Care Team Providers Care Vision Impaired Teacher Name Role Phone Yonatan Good Primary Care Provider + Allergies Active Allergy Reactions Criticality Noted Date Comments Diphenhydramine Hcl Hives 06/06/2024 Phs Other Free Text-See Phs Viewer 1 05/20/2010 BENADRYL-RASH Shellfish Containing Products 2024 [place]ien Medications albuterol 90 mcg/actuation inhaler Inhale 2 [...] Medical Devices Not on file [place] [address] [address] [place] [address] [address] [place] [address] [place] [address] [place] [address] [address] [place] [id number] [place] [address] [address] [place] [id number] [place] [address] [facility] A[facility] Care Teams Vision Impaired Teacher Relationship Specialty Start Date End Date Yonatan Good PA [address] [place] [address] PCP - General 10/14/20 Additional Source Comments The information contained in this document represents components of the legal health record. It is not the complete legal health record.[facility]
== END 2025-02-11 10:21 | disposition home or self-care (01) ==
LOC: HO.HUSH 09:28
PROVIDERS: PCP Physician Assistant; Visit Provider Urology
DX: T14.8XXA Other injury of unspecified body region, initial encounter (principal)
CPT/HCPCS: 99024

== ENCOUNTER → 2025-02-11 09:27 | Outpatient (BNVA) | payer OTHER, SELFPAY | PROVIDERS: PCP Physician Assistant; Visit Provider Urology | DX: N99.840 Postprocedural hematoma of a genitourinary system organ or structure following a genitourinary system procedure (principal) | CPT/HCPCS: 99212 ==